=== PATIENT | male | born 1945 | race Caucasian/White ===

== ENCOUNTER 2019-06-18 07:54 | Outpatient (REF) | payer MEDICARE, SELFPAY ==
[2019-06-18 13:29] LABS: Chol HDL Ratio 3.15 mg/dL (1.0-5.00); Cholesterol 145 mg/dL (0-200); Glucose 89 mg/dL (65-115); HDL Cholesterol 46 mg/dL (60-100); LDL Cholesterol Calculated 85 mg/dL (50-129); LDL HDL Ratio 1.85 RATIO (0.00-3.22); Triglycerides 72 mg/dL (0-150)
[2019-06-18 13:39] LABS: Estmated Average Glucose 126
== END 2019-06-18 07:55 | disposition home or self-care (01) ==
LOC: LAB 07:54
PROVIDERS: Family Provider Family Medicine; PCP Family Medicine; Visit Provider Dermatology
DX: Z01.89 Encounter for other specified special examinations (principal)
CPT/HCPCS: 80061; 82947; 83036

== ENCOUNTER 2020-05-26 21:32 | Emergency (ER) | payer MEDICARE, SELFPAY ==
[2020-05-26 21:37] VITALS: BP 126/77; PULSE 73; RESP 18; TEMP 36.5; O2SAT 99; BMI 19.0
--- NOTE | 2020-05-26 21:47 | ED_ITS ---
HPI - Back Pain/Injury General: Chief Complaint: Back Pain/Injury Stated Complaint: LOWER BACK PAIN Time Seen by Provider: 05/26/20 21:46 History of Present Illness: HPI Narrative: Patient is a 74-year-old male comes to the ED with lower back pain. Injury occurred approximately 4 days ago. Says he was lifting the front end of his mower and he bent over and twisted and he felt a pop and then he had pain across his lower back. Patient has past medical history of lower back surgery with titanium rods placed. He rates his lower back pain an 8 out of 10. He is able to walk and stand up but it does cause him some pain. Denies any pain radiating down the legs, numbness or tingling to the legs, bladder or bowel incontinence, pelvic anesthesia. Associated symptoms: Deny abdominal pain, chills, dysuria, fatigue, fever(s), hematuria, nausea or vomiting Review of Systems Const: Denies: fever(s), chills or fatigue Eyes: Denies: change in vision or eye discomfort ENMT: Denies: throat pain, odynophagia, nasal discharge or nasal congestion Card: Denies: chest pain, palpitations, edema, swelling of feet/ankles, dyspnea on exertion or orthopnea Resp: Denies: dyspnea, productive cough or non-productive cough GI: Denies: abdominal pain, nausea, vomiting, diarrhea, constipation or hematochezia : Denies: flank pain, difficulty urinating, dysuria or hematuria Musc: Reports: back pain; Denies: neck pain or extremity swelling Skin/Breast: Denies: rash or new lesions Neuro: Denies: headache(s), numbness in extremities or weakness in extremities Physical Exam Const: COMMON NORMALS: no acute distress, patient oriented x3 and alert GENERAL APPEARANCE: cooperative and comfortable HENMT: COMMON NORMALS: normocephalic HEAD & SCALP: normocephalic MOUTH: Normal oral and palatal mucosa present THROAT: posterior oropharynx normal and uvula midline Neck/C-Spine: COMMON NORMALS: supple GENERAL: Yes normal visual inspection Resp: COMMON NORMALS: normal respiratory effort, No retractions, No use of accessory muscles and clear to auscultation bilaterally AUSCULTATION: clear to auscultation bilaterally Cardio: COMMON NORMALS: regular rate, regular rhythm, S1 normal heart sound present, S2 normal heart sound present, No gallops present (Cardio), No clicks present (Cardio), No murmurs present (Cardio) and Peripheral pulses 2+ throughout RATE: regular rate RHYTHM: regular rhythm HEART SOUNDS: S1 normal heart sound present and S2 normal heart sound present PERIPHERAL PULSES: Peripheral pulses 2+ throughout GI: COMMON NORMALS: Normal to inspection, nondistended, normoactive bowel sounds present, Soft to palpation, non-tender and no masses PALPATION: Yes Soft to palpation : COMMON NORMALS: Yes no CVA tenderness BLADDER/KIDNEY EXAM: Yes no CVA tenderness Back/Pelvis: COMMON NORMALS: no CVA tenderness LUMBAR SPINE/LOWER BACK: Yes pain with ROM, No lumbar spinal tenderness and Yes paraspinal muscle tenderness Extremity: COMMON NORMALS: normal to inspection Neuro: COMMON NORMALS: patient oriented x3 and moves all extremities SENSORIUM/ORIENTATION: Yes alert Skin: GENERAL SKIN EXAM: dry skin Course Vital Signs: Vital signs: Vital Signs Temperature 97.7 F 05/26/20 21:37 Pulse Rate 72 05/27/20 00:14 Respiratory Rate 16 05/27/20 00:14 Blood Pressure 114/74 05/27/20 00:14 Pulse Oximetry 99 05/27/20 00:14 MDM - Back Pain/Injury MDM Narrative: Medical decision making narrative: Patient is a 74-year-old male comes to the ED with acute lower back pain. He has a history of lumbar surgery with titanium rods placed. Patient is able to stand up and ambulate but does experience some pain. Denies any pain radiating down his legs or weakness or numbness to lower extremities. Denies cauda equina symptoms. Lumbar x-ray showed new mild compression fracture of L1. Patient was given a TLSO brace and I placed an order with case management for patient to be referred to neurosurgery. He was sent home with a prescription for Hyden and Robaxin. He was told to rest and wear TLSO brace until seen by neurosurgeon . Return to ED precautions given. Patient was told that he will receive a call from case management to set up an appointment with neurosurgery. Patient understood and agreed with plan. Imaging Data^: Xray Ortho: Attestation: I personally reviewed and interpreted this imaging study as follows: Radiologist's impression: [address] [address] XRay Report Signed Patient: Wang Martinez Unit #: [id number] : 1945 Age/Sex: 74 / M ADM Date: 05/26/20 Loc: ER Room/Bed: Attending Dr: Ordering Provider/Ordering MD: Tee Zuniga Date of Service: 05/26/20 Procedure(s): XR lumbar spine 2-3V* [id number] Accession Number(s): [id number] Report Number: [id number] PROCEDURE INFORMATION: Exam: XR Lumbosacral Spine, 2 or 3 Views Exam date and time: 05/26/2020 10:25 PM Age: 74 years old Clinical indication: Injury or trauma; Blunt trauma (contusions or hematomas); Prior surgery; Patient HX: Low back pain, lifting lawnmower; Additional info: Back injury TECHNIQUE: Imaging protocol: XR of the lumbosacral spine, 2 or 3 views. COMPARISON: CR Lumbar Spine 2-3 views* [id number] 03/30/2019 1:21 PM FINDINGS: Bones/joints: Stable old, mild compression deformity of L3. Stable grade I anterolisthesis of L4 on L5. Stable postsurgical changes consistent with L4-L5 fusion. Stable multilevel degenerative changes of varying severity in the visualized spine. New age-indeterminate mild compression deformity of the superior endplate of L1. Bones are diffusely osteopenic. Mild degenerative changes of the right and left sacroiliac joints. Soft tissues: No paravertebral soft tissue abnormality. No radiopaque foreign body. Vasculature: Atherosclerotic changes in the visualized arteries. XR/XR lumbar spine 2-3V* [id number] IMPRESSION: 1. New age-indeterminate mild compression deformity of the superior endplate of L1. Recommend correlation with symptoms of pain in this area. CT scan of the lumbar spine may be obtained for further evaluation as clinically indicated. 2. Stable old, mild compression deformity of L3. 3. Stable grade I anterolisthesis of L4 on L5. Stable postsurgical changes consistent with L4-L5 fusion. 4. Stable multilevel degenerative changes of varying severity in the visualized spine. 5. Incidental/nonacute findings are listed in the report. Dictated By: Faviola Pennington MD Signed By: Faviola Pennington MD Signed Date/Time: 05/26/202300 DD/ 58 Discharge Plan Discharge Patient Disposition: Home Clinical Impression: Compression fracture of L1 lumbar vertebra Qualifiers: Encounter type: initial encounter Qualified Code(s): S32.010A - Wedge compression fracture of first lumbar vertebra, initial encounter for closed fracture Condition: Stable Prescriptions: New methocarbamol 750 mg tablet 750 mg PO Q8H Qty: 30 RF: 0 Discharge Orders: Discharge ED (Routine); Ordered 05/26/20 Ordered By: Tee Zuniga Referrals: Jean Bedolla MD [Primary Care Provider] - Discharge Diet: Regular Discharge Activity: Limit activity as instructed Patient Instructions: Fractures - Compression Activity Restrictions/Additional Instructions: Follow-up with medical provider as directed. Case management will be contacting you in the next several days set up an appointment with neurosurgery. Take medications as prescribed. Robaxin is a muscle relaxer and can cause some drowsiness so take at night before bed. Limit strenuous activity and no lifting and wear TLSO brace. Return to the ER or your medical provider if condition worsens. Please read and understand discharge instructions. If any questions, please ask. Coding Level of Care Code ED Regulatory Services Consultant for Grant Fwnathan Exam Comprehensive
--- NOTE | 2020-05-26 22:23 | XRR_ITS ---
PROCEDURE INFORMATION: Exam: XR Lumbosacral Spine, 2 or 3 Views Exam date and time: 05/26/2020 10:25 PM Age: 74 years old Clinical indication: Injury or trauma; Blunt trauma (contusions or hematomas); Prior surgery; Patient HX: Low back pain, lifting lawnmower; Additional info: Back injury TECHNIQUE: Imaging protocol: XR of the lumbosacral spine, 2 or 3 views. COMPARISON: CR Lumbar Spine 2-3 views* [id number] 03/30/2019 1:21 PM FINDINGS: Bones/joints: Stable old, mild compression deformity of L3. Stable grade I anterolisthesis of L4 on L5. Stable postsurgical changes consistent with L4-L5 fusion. Stable multilevel degenerative changes of varying severity in the visualized spine. New age-indeterminate mild compression deformity of the superior endplate of L1. Bones are diffusely osteopenic. Mild degenerative changes of the right and left sacroiliac joints. Soft tissues: No paravertebral soft tissue abnormality. No radiopaque foreign body. Vasculature: Atherosclerotic changes in the visualized arteries. XR/XR lumbar spine 2-3V* [id number] IMPRESSION: 1. New age-indeterminate mild compression deformity of the superior endplate of L1. Recommend correlation with symptoms of pain in this area. CT scan of the lumbar spine may be obtained for further evaluation as clinically indicated. 2. Stable old, mild compression deformity of L3. 3. Stable grade I anterolisthesis of L4 on L5. Stable postsurgical changes consistent with L4-L5 fusion. 4. Stable multilevel degenerative changes of varying severity in the visualized spine. 5. Incidental/nonacute findings are listed in the report.
[2020-05-26] MEDS: ketorolac 60 mg/2 mL INJ IM (22:44)
[2020-05-26] MEDS: orphenadrine 30 mg/mL Inj 2 mL 60 MG IM (22:44)
[2020-05-26 23:39] VITALS: RESP 18; O2SAT 97
[2020-05-27] MEDS: HYDROcodone-acetaminophen 7.5-325 mg Tablet 2 TAB PO (00:02)
[2020-05-27 00:14] VITALS: BP 114/74; PULSE 72; RESP 16; O2SAT 99
--- NOTE | 2020-05-29 09:11 | DCPLANNER ---
Addendum entered by Deja Stafford 06/06/20 16:09: Altagracia from ortho called case finishing machine adjuster stating that when clinic called to schedule appointment, that patient was seen somewhere else. Original Note: fixed income portfolio manager had message to schedule a follow up appointment for patient with ortho. fixed income portfolio manager called the ortho clinic, spoke with Altagracia, gave clinic patients information. fixed income portfolio manager was told that patients information would be printed and reviewed. Clinic will call patient with appointment information.
== END 2020-05-27 00:07 | disposition home or self-care (01) ==
PROVIDERS: Emergency Provider Physician Assistant; PCP Family Medicine
DX: S32.010A Wedge compression fracture of first lumbar vertebra, initial encounter for closed fracture (principal); X50.0XXA Overexertion from strenuous movement or load, initial encounter
CPT/HCPCS: 12345; 72100; 96372; 99281; 99283; J1885; J2360; L0456

== ENCOUNTER 2021-08-16 11:50 | Outpatient (CLI) | payer MEDICARE, SELFPAY ==
--- NOTE | 2021-08-16 12:12 | XR_ITS ---
WS: [id number] XR lumbar spine 2-3V* [id number] REASON FOR EXAM: LUMBAR SPINAL STENOSIS FINDINGS: No significant interval change compared to 05/26/2020. Posterior pedicle screws and rods with interbody fusion device at L4-L5. Surgical appliances are in proper position and alignment and unchanged compared to 05/26/2020. Chronic compression deformities of L3 and L1. No new findings. XR/XR lumbar spine 2-3V* [id number] IMPRESSION: Stable lumbar spine as above.
--- NOTE | 2021-08-16 12:12 | XR_ITS ---
WS: [id number] XR hip RT 2-3V wo/w pel* [id number] REASON FOR EXAM: R HIP PAIN FINDINGS: No acute fracture or focal bone lesion. Mild to moderate narrowing of the hip joint space with subchondral sclerosis and cystic change in the acetabulum. No soft tissue abnormality. The hip is unchanged compared to 02/12/2018. XR/XR hip RT 2-3V wo/w pel* [id number] IMPRESSION: Osteoarthritis of the right hip stable compared to 02/12/2018.
== END 2021-08-16 11:51 | disposition home or self-care (01) ==
PROVIDERS: PCP Family Medicine; Visit Provider Family Medicine
DX: M48.061 Spinal stenosis, lumbar region without neurogenic claudication (principal); M16.11 Unilateral primary osteoarthritis, right hip
CPT/HCPCS: 72100; 73502

== ENCOUNTER 2021-09-26 10:06 | Outpatient (CLI) | payer MEDICARE, SELFPAY ==
--- NOTE | 2021-09-26 10:11 | MR_ITS ---
WS: [id number] MRI LUMBAR SPINE NONCONTRAST HISTORY: SPINAL STENOSIS, LUMBAR COMPARISON: None available. TECHNIQUE: Sagittal and axial multisequence imaging is submitted. Increase in the lumbar lordosis. Posterior lumbar fusion at L4-5. L4 anterolisthesis by 5 mm. Mild an terior wedging of L1 and L3. Interbody spacer at L4-5. Mild disc desiccation throughout the lumbar sp ine. Conus terminates normally at L1-2 disc level. L1-L2: Mild bilateral foraminal narrowing. No disc protrusions. No high-grade stenosis. L2-L3: Moderate diffuse annular disc bulging with a LEFT foraminal disc protrusion. Small central dis c protrusion. Moderate ligamentum flavum hypertrophy and facet arthritis. Disc encroaching upon the v entral thecal sac extending into the subarticular recesses. Moderate central and bilateral foraminal stenosis. Disc encroachment upon the traversing L3 nerve roots. L3-L4: Marked annular disc bulging encroaching upon the ventral thecal sac. Suspect disc protrusion i n the RIGHT foramen. Ligamentum flavum and facet arthritis. Mild central with moderate to severe bila teral subarticular recess and foraminal stenosis. Greater foraminal stenosis on the RIGHT. L4-L5: Large posterior laminectomy defect. Mild narrowing of the LEFT foramen. L5-S1: Diffuse annular disc bulging. Osteophytic ridging resulting in mild bilateral foraminal stenos is. Very tiny central disc protrusion. Paraspinal soft tissues are normal. MR/MR lumbar spine wo con* [id number] IMPRESSION: 1. Posterior lumbar fusion at L4-5 with interbody spacer laminectomy defect. 2. Remote mild compression deformities at L1 and L3. 3. Moderate central and bilateral foraminal stenosis at L2-3 with disc encroac hment into the subarticular recesses contacting the L3 nerve roots. 4. Mild central with moderate to severe bilateral subarticular recess and fora flaquito stenosis at L3-4. Severe stenosis involving the RIGHT foramen. Probable d isc protrusion in the RIGHT proximal foramen. 5. Mild bilateral foraminal stenosis at L1-2 and L5-S1.
== END 2021-09-26 10:07 | disposition home or self-care (01) ==
PROVIDERS: PCP Family Medicine; Visit Provider Family Medicine
DX: M48.061 Spinal stenosis, lumbar region without neurogenic claudication (principal)
CPT/HCPCS: 72148

== ENCOUNTER 2021-11-21 07:23 | Outpatient (RCR) | payer MEDICARE, SELFPAY | END 2021-12-09 23:59 | disposition home or self-care (01) | LOC: SPT 07:23 | PROVIDERS: PCP Family Medicine; Referring Provider Neurological Surgery; Visit Provider Neurological Surgery | DX: M54.16 Radiculopathy, lumbar region (principal); M48.061 Spinal stenosis, lumbar region without neurogenic claudication | CPT/HCPCS: 97110; 97162; G0283 ==

== ENCOUNTER 2021-12-10 06:00 | Outpatient (RCR) | payer MEDICARE, SELFPAY | END 2022-01-09 23:59 | disposition home or self-care (01) | LOC: SPT 06:00 | PROVIDERS: PCP Family Medicine; Referring Provider Neurological Surgery; Visit Provider Neurological Surgery | DX: M48.061 Spinal stenosis, lumbar region without neurogenic claudication (principal); M54.16 Radiculopathy, lumbar region; Z87.891 Personal history of nicotine dependence | CPT/HCPCS: 97110; G0283 ==

== ENCOUNTER → 2023-02-11 15:46 | Outpatient (BNVA) | payer MEDICARE, SELFPAY | PROVIDERS: PCP Family Medicine; Visit Provider Emergency Medicine | DX: M17.11 Unilateral primary osteoarthritis, right knee (principal); M25.561 Pain in right knee | CPT/HCPCS: 73562 ==

== ENCOUNTER 2023-02-11 16:18 | Inpatient (IN) | payer MEDICARE, SELFPAY ==
[2023-02-11 16:19] VITALS: BP 147/60; PULSE 73; RESP 17; TEMP 36.6; O2SAT 94; BMI 19.3
--- NOTE | 2023-02-11 16:30 | W.ED.EXTPRO ---
Documented by User: MARIAH Vazquez 02/11/23 22:45 HPI - Extremity Problem General: Chief complaint: Extremity Problem,Nontraumatic Stated complaint: knee pain Time Seen by Provider: 02/11/23 16:23 Source: patient Mode of arrival: wheelchair Limitations: no limitations History of Present Illness: Patient is a nice 77-year-old male who presents to ED today for complaint of right knee pain and swelling. Patient was seen at a walk in clinic earlier today and referred to the emergency department for concern for septic arthritis. Patient states he began noticing pain in the joint about 3 days ago. Yesterday he started noticing the knee swelling as well as some overlying redness and warmth. He denies any known injury or trauma to the knee. Patient states pain has gotten so severe that he now was not able to bear any weight on the extremity. He is not running fevers. He states he has had a decreased appetite. No recent illness. MD Complaint: joint swelling and joint pain Onset (ago): day(s) Pain Consistency: constant Location: right and knee Severity scale (1-10): 10 Quality: constant Radiation: none Relieving factors: nothing Exacerbating factors: range of motion, weight bearing, walking and palpation Associated symptoms: Reports other (decreased appetite ); Deny chest pain or fever(s) Review of Systems Const: Reports: change in appetite; Denies: fever(s), chills, body aches, fatigue or malaise Card: Denies: chest pain Resp: Denies: dyspnea GI: Denies: abdominal pain Musc: Reports: joint pain, joint swelling, joint warmth and limited range of motion; Denies: neck pain or back pain Skin/Breast: Denies: pruritus Neuro: Reports: difficulty walking (secondary to R knee pain); Denies: headache(s), numbness in extremities, weakness in extremities or sensory changes PFS ED PFSH: Medical History History of back pain Smoker Surgical History (Updated 02/11/23 @ 22:36 by Imtiaz Torres MD) History of back surgery Family History (Updated 02/11/23 @ 22:36 by Imtiaz Torres MD) Mother CAD (coronary artery disease) Social History (Updated 02/11/23 @ 22:36 by Imtiaz Torres MD) Smoking and tobacco status: current every day smoker Alcohol intake: never Substance/Drug Use: never Physical Exam Const: COMMON NORMALS: no acute distress, average body habitus, patient oriented x3, no limitations, healthy appearing, alert and well nourished Resp: COMMON NORMALS: normal respiratory effort and clear to auscultation bilaterally AUSCULTATION: clear to auscultation bilaterally Cardio: COMMON NORMALS: regular rate and regular rhythm RATE: regular rate RHYTHM: regular rhythm Extremity: COMMON NORMALS: capillary refill normal and no calf tenderness GENERAL: Yes normal exam except as noted RIGHT LOWER EXTREMITY: Yes knee joint Right knee: Yes inspection (swollen knee joint), Yes palpation (warmth/swelling appreciated ), Yes ROM (knee held in slight flexion; virtually no ROM secondary to pain) and Yes neurovascular exam (normal) Neuro: COMMON NORMALS: patient oriented x3, moves all extremities, no focal motor deficits and no sensory deficits noted SENSORIUM/ORIENTATION: Yes alert Skin: TRAUMA: no lacerations or abrasions Procedures Joint Aspiration/Injection Joint Asp./Inject. 1: Time Out Performed: Yes Side of body: right Joint Aspirated: knee Ultrasound Guidance: No Skin Prep: Povidone-Iodine1% Local Anesthetic: lidocaine 2% Amount of anesthesia used (mL): 8.0 Needle Size Used: 18G Fluid Obtained: bloody Total fluid obtained (mL): 10 Patient Tolerated Procedure: well Complications: none Additional Comments: performed along with Dr. Corrigan Course Consultations: Consultation #1: Dr. Zuniga-recommends IV abx, admit to hospitalist, and plan for OR tomorrow for wash out Consultation #2: Dr. Torres-accepts admission Vital Signs: Vital signs: Vital Signs Temperature 97.8 F 02/11/23 16:19 Pulse Rate 68 02/11/23 19:30 Respiratory Rate 18 02/11/23 21:35 Blood Pressure 128/59 02/11/23 19:30 Pulse Oximetry 93 02/11/23 21:35 Oxygen Delivery Me thod Room Air 02/11/23 17:09 MDM - Extremity (Nontraumatic) Lab Data 02/11/23 17:00 02/11/23 17:00 Laboratory Results WBC 12.46 10^3/uL (3.29-11.43) H 02/11/23 17:00 RBC 4.92 10^6/uL (3.85-5.65) 02/11/23 17:00 Hgb 15.40 g/dL (11.27-16.99) 02/11/23 17:00 Hct 46.7 % (37-53) 02/11/23 17:00 MCV 94.9 fl (82-101) 02/11/23 17:00 MCH 31.3 pg (27-33) 02/11/23 17:00 MCHC 33.0 g/dL (30-55) 02/11/23 17:00 RDW 13.4 % (12.1-15.1) 02/11/23 17:00 Plt Count 241 10^3/cmm (157-399) 02/11/23 17:00 MPV 10.5 fL (7.4-10.4) H 02/11/23 17:00 Neut % (Auto) 76.7 % 02/11/23 17:00 Lymph % (Auto) 11.2 % 02/11/23 17:00 [facility] % (Auto) 11.6 % 02/11/23 17:00 Eos % (Auto) 0.0 % 02/11/23 17:00 Baso % (Auto) 0.2 % 02/11/23 17:00 Neut # (Auto) 9.55 10^3/uL (1.8-7.7) H 02/11/23 17:00 Lymph # (Auto) 1.4 10^3/uL (0.8-4.8) 02/11/23 17:00 [facility] # (Auto) 1.5 10^3/uL (0.2-0.9) H 02/11/23 17:00 Eos # (Auto) 0.0 10^3/uL (0.0-0.8) 02/11/23 17:00 Baso # (Auto) 0.0 10^3/uL (0.0-0.1) 02/11/23 17:00 Nucleated RBC % (auto) 0 % 02/11/23 17:00 Nucleated RBCs # 0.0 /100WBC 02/11/23 17:00 ESR 11 mm/hr (0-10) H 02/11/23 17:00 Sodium 136 mmol/L (136-145) 02/11/23 17:00 Potassium 4.1 mmol/L (3.5-5.1) 02/11/23 17:00 Chloride 99 mmol/L (98-107) 02/11/23 17:00 Carbon Dioxide 27 mmol/L (22-29) 02/11/23 17:00 Anion Gap 14.1 (5-19) 02/11/23 17:00 BUN 17 mg/dL (8-23) 02/11/23 17:00 Creatinine 0.7 mg/dL (0.7-1.2) 02/11/23 17:00 GFR Calculation Not Reportable 02/11/23 17:00 Glucose 121 mg/dL (65-115) H 02/11/23 17:00 Calculated Osmolality 285 mOsm/kg (285-295) 02/11/23 17:00 Lactic Acid 1.7 mmol/L (0.5-2.2) 02/11/23 17:00 Calcium 9.1 mg/dL (8.5-10.5) 02/11/23 17:00 Total Bilirubin 1.0 mg/dL (0.15-1.2) 02/11/23 17:00 AST 13 U/L (0-40) 02/11/23 17:00 ALT 9 U/L (0-41) 02/11/23 17:00 Alkaline Phosphatase 70 U/L (40-130) 02/11/23 17:00 C-Reactive Protein 147.2 mg/L (0.0-4.9) H 02/11/23 17:00 Total Protein 7.3 g/dL (6.6-8.7) 02/11/23 17:00 Albumin 4.3 g/dL (3.5-5.2) 02/11/23 17:00 Globulin 3.0 g/dL (1.3-4.6) 02/11/23 17:00 Fluid Crystals Sent to pathology 02/11/23: Synovial Color Red (PALE YELLOW) 02/11/23: Synovial Appearance Cloudy (CLEAR) 02/11/23: Synovial WBC 53997 /uL (0-150) H 02/11/23: Synovial RBC 102 10^3/uL (0-0) H 02/11/23: Synovial Mononuclear 4.957 10^3/uL 10/03/23 19:23 Synov Polynuclear WBCs 87.595 10^3/uL 02/11/23 19:23 Synovial Other Cells Not Reportable 02/11/23 19:23 Synovial Polynuclear % 94.700 % 02/11/23 19:23 Synovial Mononuclear % 5.300 % 02/11/23 19:23 Path Cons w/Slide Yes 02/11/23 19:23 Discharge Plan Discharge Patient Disposition: Admitted As Inpatient Admit Provider: Imtiaz Torres Clinical Impression: Septic arthritis of knee, right Condition: Stable Coding Level of Care Code ED Steward/Stewardess Deck for Chg Fwd Documented by User: Juan Antonio Corrigan MD 02/11/23 22:03 HPI - Extremity Problem General: Chief complaint: Extremity Problem,Nontraumatic Stated complaint: knee pain Time Seen by Provider: 02/11/23 16:23 PFSH ED PFSH: Medical History History of back pain Smoker Surgical History (Updated 02/11/23 @ 22:36 by Imtiaz Torres MD) History of back surgery Family History (Updated 02/11/23 @ 22:36 by Imtiaz Torres MD) Mother CAD (coronary artery disease) Social History (Updated 02/11/23 @ 22:36 by Imtiaz Torres MD) Smoking and tobacco status: current every day smoker Alcohol intake: never Substance/Drug Use: never Course Vital Signs: Vital signs: Vital Signs Temperature 97.8 F 02/11/23 16:19 Pulse Rate 68 02/11/23 19:30 Respiratory Rate 18 02/11/23 21:35 Blood Pressure 128/59 02/11/23 19:30 Pulse Oximetry 93 02/11/23 21:35 Oxygen Delivery Me thod Room Air 02/11/23 17:09 MDM - Extremity (Nontraumatic) Medical Decision Making Saw patient with above midlevel assisted with patient's arthrocentesis did have elevated WBCs on the synovial fluid analysis likely septic joint spoke to orthopedist will admit on IV antibiotics and likely go to the OR tomorrow Lab Data 02/11/23 17:00 02/11/23 17:00 Laboratory Results WBC 12.46 10^3/uL (3.29-11.43) H 02/11/23 17:00 RBC 4.92 10^6/uL (3.85-5.65) 02/11/23 17:00 Hgb 15.40 g/dL (11.27-16.99) 02/11/23 17:00 Hct 46.7 % (37-53) 02/11/23 17:00 MCV 94.9 fl (82-101) 02/11/23 17:00 MCH 31.3 pg (27-33) 02/11/23 17:00 MCHC 33.0 g/dL (30-55) 02/11/23 17:00 RDW 13.4 % (12.1-15.1) 02/11/23 17:00 Plt Count 241 10^3/cmm (157-399) 02/11/23 17:00 MPV 10.5 fL (7.4-10.4) H 02/11/23 17:00 Neut % (Auto) 76.7 % 02/11/23 17:00 Lymph % (Auto) 11.2 % 02/11/23 17:00 [facility] % (Auto) 11.6 % 02/11/23 17:00 Eos % (Auto) 0.0 % 02/11/23 17:00 Baso % (Auto) 0.2 % 02/11/23 17:00 Neut # (Auto) 9.55 10^3/uL (1.8-7.7) H 02/11/23 17:00 Lymph # (Auto) 1.4 10^3/uL (0.8-4.8) 02/11/23 17:00 [facility] # (Auto) 1.5 10^3/uL (0.2-0.9) H 02/11/23 17:00 Eos # (Auto) 0.0 10^3/uL (0.0-0.8) 02/11/23 17:00 Baso # (Auto) 0.0 10^3/uL (0.0-0.1) 02/11/23 17:00 Nucleated RBC % (auto) 0 % 02/11/23 17:00 Nucleated RBCs # 0.0 /100WBC 02/11/23 17:00 ESR 11 mm/hr (0-10) H 02/11/23 17:00 Sodium 136 mmol/L (136-145) 02/11/23 17:00 Potassium 4.1 mmol/L (3.5-5.1) 02/11/23 17:00 Chloride 99 mmol/L (98-107) 02/11/23 17:00 Carbon Dioxide 27 mmol/L (22-29) 02/11/23 17:00 Anion Gap 14.1 (5-19) 02/11/23 17:00 BUN 17 mg/dL (8-23) 02/11/23 17:00 Creatinine 0.7 mg/dL (0.7-1.2) 02/11/23 17:00 GFR Calculation Not Reportable 02/11/23 17:00 Glucose 121 mg/dL (65-115) H 02/11/23 17:00 Calculated Osmolality 285 mOsm/kg (285-295) 02/11/23 17:00 Lactic Acid 1.7 mmol/L (0.5-2.2) 02/11/23 17:00 Calcium 9.1 mg/dL (8.5-10.5) 02/11/23 17:00 Total Bilirubin 1.0 mg/dL (0.15-1.2) 02/11/23 17:00 AST 13 U/L (0-40) 02/11/23 17:00 ALT 9 U/L (0-41) 02/11/23 17:00 Alkaline Phosphatase 70 U/L (40-130) 02/11/23 17:00 C-Reactive Protein 147.2 mg/L (0.0-4.9) H 02/11/23 17:00 Total Protein 7.3 g/dL (6.6-8.7) 02/11/23 17:00 Albumin 4.3 g/dL (3.5-5.2) 02/11/23 17:00 Globulin 3.0 g/dL (1.3-4.6) 02/11/23 17:00 Fluid Crystals Sent to pathology 02/11/23: Synovial Color Red (PALE YELLOW) 02/11/23: Synovial Appearance Cloudy (CLEAR) 10/03/23 19:23 Synovial WBC 53956 /uL (0-150) H 02/11/23 19:23 Synovial RBC 102 10^3/uL (0-0) H 02/11/23 19:23 Synovial Mononuclear 4.957 10^3/uL 02/11/23 19:23 Synov Polynuclear WBCs 87.595 10^3/uL 02/11/23 19:23 Synovial Other Cells Not Reportable 02/11/23 19:23 Synovial Polynuclear % 94.700 % 02/11/23 19:23 Synovial Mononuclear % 5.300 % 02/11/23 19:23 Path Cons w/Slide Yes 02/11/23 19:23 XR interpretation done by ED provider, pending radiology final review Discharge Plan Discharge Patient Disposition: Admitted As Inpatient Admit Provider: Imtiaz Torres Clinical Impression: Septic arthritis of knee, right Condition: Stable Coding Level of Care Code ED Steward/Stewardess Deck for Grant Guzman
[2023-02-11 16:36] VITALS: PULSE 60; O2SAT 97
[2023-02-11 17:09] VITALS: BP 146/64; PULSE 67; RESP 18; O2SAT 98
[2023-02-11 17:38] LABS: Basophils % 0.2 %; Hematocrit 46.7 % (37-53); Lymphocytes # 1.4 10^3/uL (0.8-4.8); Lymphocytes % 11.2 %; Mean Corpuscular Hemoglobin 31.3 pg (27-33); Mean Corpuscular Volume 94.9 fl (82-101); Mean Platelet Volume 10.5 fL (7.4-10.4); Monocytes # 1.5 10^3/uL (0.2-0.9); Monocytes % 11.6 %; Neutrophils # 9.55 10^3/uL (1.8-7.7); Neutrophils % 76.7 %; Nucleated Red Blood Cells % 0 %; Platelet Count 241 10^3/cmm (157-399); Red Blood Count 4.92 10^6/uL (3.85-5.65); Red Cell Distribution Width 13.4 % (12.1-15.1); White Blood Count 12.46 10^3/uL (3.29-11.43)
[2023-02-11 17:41] LABS: Erythrocyte Sedimentation Rate 11 mm/hr (0-10)
[2023-02-11 17:42] LABS: Alanine Aminotransferase 9 U/L (0-41); Albumin Level 4.3 g/dL (3.5-5.2); Alkaline Phosphatase 70 U/L (40-130); Anion Gap 14.1 (5-19); Aspartate Amino Transferase 13 U/L (0-40); Blood Urea Nitrogen 17 mg/dL (8-23); C Reactive Protein 147.2 mg/L (0.0-4.9); Calcium 9.1 mg/dL (8.5-10.5); Carbon Dioxide 27 mmol/L (22-29); Chloride 99 mmol/L (98-107); Glucose 121 mg/dL (65-115); Osmolality Calculated 285 mOsm/kg (285-295); Potassium 4.1 mmol/L (3.5-5.1); Sodium 136 mmol/L (136-145); Total Protein 7.3 g/dL (6.6-8.7)
[2023-02-11 17:43] LABS: Lactic Sepsis W/Reflex 1.7 mmol/L (0.5-2.2)
[2023-02-11] MEDS: lidocaine 2% INJ 20 mL INJECTION (19:28)
[2023-02-11 19:30] VITALS: BP 128/59; PULSE 68; RESP 16; O2SAT 93
[2023-02-11 20:48] LABS: RBC Synovial Fluid 102 10^3/uL (0-0); Synovial Fluid Mononuclear # 4.957 10^3/uL
[2023-02-11 20:49] LABS: Appearance Synovial Fluid CLOUDY (CLEAR); Color Synovial Fluid RED (PALE YELLOW); PATH Referal YES
[2023-02-11 20:53] LABS: Cyto Order Verification No Order
[2023-02-11] MEDS: ondansetron 2 mg/ML SDV 2 mL 4 MG IVP (21:31)
--- NOTE | 2023-02-11 21:32 | PM.CONSULT ---
Providers/Reason For Consult Consulting Physician/Specialty*: Abhi Zuniga DO/orthopedic surgery Reason for Consult*: Right knee septic arthritis Requesting Physician: Nolvia Avina PA-C (Juan Antonio Corrigan) Primary Care Provider: Jean Bedolla MD History of Present Illness History of Present Illness Wang Martinez is a 77 year old male presents with complaints of right knee pain and swelling this has been going on for the past 3 days and has progressively worsened has been unable to bear weight he has noticed swelling in his knee as well as warmth to his knee states he has had potentially some chills last night but otherwise denies any other systemic type symptoms he denies any recent illness. Denies any recent dental infections or recent dental work performed. Denies any other type history of inoculation for infection. He denies any history of gout or pseudogout. Denies having much in the way of right knee pain prior to 3 days ago. Patient was seen and worked up by the emergency department his joint was aspirated and patient was found to have 92,000 WBCs. White count 12.4 ESR 11 CRP 147. Patient will be admitted by hospitalist will be started on empiric antibiotics as he has had joint aspiration and been sent for aerobic and anaerobic cultures already. Plan will be for n.p.o. at midnight and plan for surgical intervention of a right knee irrigation debridement with arthroscopy. Patient and understand agree with current plan. All questions answered. Review of Systems General: Reports: 10 or more systems reviewed and unremarkable except in HPI and below Medications/Allergies Home Medications Medication Instructions Recorded Confirmed Last Taken Type methocarbamol 750 mg tablet 750 mg PO Q8H #30 tabs 05/26/20 02/11/23 Unknown Rx gabapentin 300 mg capsule See Rx Instructions .Route 05/17/22 02/11/23 Unknown Rx .COMPLEX #60 caps albuterol sulfate 90 mcg/actuation See Rx Instructions .Route 07/27/22 02/11/23 Unknown Rx aerosol inhaler .COMPLEX #18 grams fluticasone 500 mcg-salmeterol 50 See Rx Instructions .Route 08/09/22 02/11/23 Unknown Rx mcg/dose blistr powdr for .COMPLEX #60 ea inhalation pantoprazole 40 mg tablet,delayed See Rx Instructions .Route 09/16/22 02/11/23 Unknown Rx release .COMPLEX #30 tabs tramadol 50 mg tablet 50 mg PO Q6H PRN pain #120 tabs 09/16/22 02/11/23 Unknown Rx Allergies Allergy/AdvReac Type Severity Reaction Status Date / Time No Known Allergies Allergy Verified 02/11/23 15:35 Vitals/I&O/Wt Last Vital Signs Temp 97.8 F 02/11/23 16:19 Pulse 68 02/11/23 19:30 Resp 16 02/11/23 19:30 BP 128/59 02/11/23 19:30 Pulse Ox 93 02/11/23 19:30 O2 Del Method Room Air 02/11/23 17:09 Weight last 48 hrs Weight 127 lb Physical Exam Narrative: Examination right knee: Examination of the right knee palpable large joint effusion. Patient has Band-Aid on from previous aspiration. Patient has significantly decreased range of motion stable to varus valgus stress. Limited examination secondary to patient's guarding and pain. He is able to tolerate gentle micro motion but still has noticeable pain and discomfort with this out side at his baseline and comparative to the contralateral knee. Patient's gross motor and sensory is intact of the right lower extremity is able to plantarflex and dorsiflex ankle and wiggle toes. Sensations intact light touch distally compartments are soft compressible. Secondary survey examination demonstrates no swelling or painful joints to the bilateral upper extremities or left lower extremity joints. Normal range of motion of these joints. Const: COMMON NORMALS: no acute distress (Resting comfortably patient does not appear to be ill.) and average body habitus HENMT: COMMON NORMALS: normocephalic and atraumatic HEAD & SCALP: normocephalic and atraumatic Resp: COMMON NORMALS: normal respiratory effort and No retractions Data 02/11/23 17:00 02/11/23 17:00 Other Labs: WBC 12.4 ESR 11 CRP 147 Joint aspiration demonstrates 92,000 WBCs with 94.7% PMNs Micro: Microbiology 02/11/23 17:10 Blood Culture - Preliminary Blood SPECIMEN COLLECTED 02/11/23 17:00 Blood Culture - Preliminary Blood SPECIMEN COLLECTED Xray Ortho: My impression: X-rays of the right knee reviewed in person interpreted by myself demonstrated significant right knee degenerative joint disease with [id number] articulation of the medial compartment chondrocalcinosis noted throughout the right knee as well as arthritic changes noted on the lateral and patellofemoral compartments. A&P Assessment and plan (1) Septic arthritis of knee, right: Plan N.p.o. at midnight Plan for OR tomorrow for right knee irrigation debridement with arthroscopy Joints been aspirated by the emergency department 92,000 WBC count consistent with likely septic arthritis we will continue to follow aerobic and anaerobic cultures from this aspiration, given patient's already had aspirate and cultures sent we will recommend starting of empiric antibiotics Internal medicine to admit as primary Orthopedics consulted Imaging reviewed Labs reviewed Nonweightbearing right lower extremity Plan for OR tomorrow MDM: Patient is a 77-year-old gentleman who presents with concern for right septic knee arthritis. Patient's had pain for 3 days with swelling and aspiration the emergency department findings concerning for possible septic arthritis given 92 WBC count and CRP of 147 elevated white count of 12.4. He has been having issues with this for 3 days and is worsened over the past day or 2. At this point time given his joints been aspirated and sent for cultures we will get him started on empiric antibiotics per the primary team. Patient be n.p.o. at midnight and plan for right knee irrigation and debridement with arthroscopy tomorrow. Patient and understand the risk benefits complication alternatives with surgery they understand risk of surgery include not limited to make a better make it worse injury to nerves vessels or tendons, persistent infection possible repeat surgery. Understanding risk of surgery they like to proceed with surgical intervention we will get added onto surgery schedule tomorrow. All questions answered. Coding Level of Care Code Acute Code for [facility] Diagnoses Septic arthritis of knee, right M00.9 Time Spent (min) 45
[2023-02-11 21:35] VITALS: RESP 18; O2SAT 93
[2023-02-11] MEDS: morphine 4 mg/mL SDV 1 mL IVP (21:35)
[2023-02-11] MEDS: piperacillin-tazobactam 3.375 GM in sodium chloride 0.9% (plus) 50 ML IV (21:43)
--- NOTE | 2023-02-11 22:34 | P.HP_ITS ---
Providers/Chief Complaint Admitting Physician: Imtiaz Torres MD Primary Care Provider: Jean Bedolla MD Chief Complaint: knee pain History of Present Illness Wang Martinez is a 77 year old male with a past medical history of GI bleed, gastric ulcer requiring surgery, history of back pain, status post titanium johny placement, who presents to [facility] due to right knee pain, swelling, erythema, tenderness, warmth. Patient denies fever, no chills, no reported trauma, no reported breaks in the skin, no iv drug use, no cat or dog bites, he does report twisiting his knee and ankle a few days ago, no alcohol use, no diabetes Review of Systems Const: Denies: fever(s) or chills Card: Denies: chest pain Resp: Denies: dyspnea GI: Denies: abdominal pain Musc: Reports: joint pain, joint swelling, joint redness and joint warmth Medications/Allergies Home Medications Medication Instructions Recorded Confirmed Last Taken Type methocarbamol 750 mg tablet 750 mg PO Q8H #30 tabs 05/26/20 02/11/23 Unknown Rx gabapentin 300 mg capsule See Rx Instructions .Route 05/17/22 02/11/23 Unknown Rx .COMPLEX #60 caps albuterol sulfate 90 mcg/actuation See Rx Instructions .Route 07/27/22 02/11/23 Unknown Rx aerosol inhaler .COMPLEX #18 grams fluticasone 500 mcg-salmeterol 50 See Rx Instructions .Route 08/09/22 02/11/23 Unknown Rx mcg/dose blistr powdr for .COMPLEX #60 ea inhalation pantoprazole 40 mg tablet,delayed See Rx Instructions .Route 09/16/22 02/11/23 Unknown Rx release .COMPLEX #30 tabs tramadol 50 mg tablet 50 mg PO Q6H PRN pain #120 tabs 09/16/22 02/11/23 Unknown Rx Allergies Allergy/AdvReac Type Severity Reaction Status Date / Time No Known Allergies Allergy Verified 02/11/23 15:35 PFSH Acute PFSH: Medical History History of back pain Smoker Surgical History (Updated 02/11/23 @ 22:36 by Imtiaz Torres MD) History of back surgery Family History (Updated 02/11/23 @ 22:36 by Imtiaz Torres MD) Mother CAD (coronary artery disease) Social History (Updated 02/11/23 @ 22:36 by Imtiaz Torres MD) Smoking and tobacco status: current every day smoker Alcohol intake: never Substance/Drug Use: never Vitals/I&O/Wt Last Vital Signs Temp 97.8 F 02/11/23 16:19 Pulse 68 02/11/23 19:30 Resp 18 02/11/23 21:35 BP 128/59 02/11/23 19:30 Pulse Ox 93 02/11/23 21:35 O2 Del Method Room Air 02/11/23 17:09 Weight last 48 hrs Weight 57.606 kg Physical Exam Const: COMMON NORMALS: no acute distress and patient oriented x3 HENMT: COMMON NORMALS: normocephalic HEAD & SCALP: normocephalic Eye: COMMON NORMALS: Equal, round and reactive pupils present and EOMs intact bilaterally Neck/C-Spine: COMMON NORMALS: no JVD Lymph: LYMPHATIC: no lymphadenopathy noted Resp: COMMON NORMALS: normal respiratory effort, No retractions, No use of accessory muscles and clear to auscultation bilaterally AUSCULTATION: clear to auscultation bilaterally Cardio: COMMON NORMALS: regular rate, regular rhythm, S1 normal heart sound present and S2 normal heart sound present RATE: regular rate RHYTHM: regular rhythm HEART SOUNDS: S1 normal heart sound present and S2 normal heart sound present GI: COMMON NORMALS: Normal to inspection, nondistended, normoactive bowel sounds present, Soft to palpation and non-tender Extremity: COMMON NORMALS: no pedal edema OTHER: Right knee, erythematous, swollen, hot, tender, pain with range of motion Bilateral DP PT pulses palpable Neuro: COMMON NORMALS: patient oriented x3, CN's II-XII intact bilaterally and moves all extremities Psych: COMMON NORMALS: mental status grossly normal Data 02/11/23 17:00 02/11/23 17:00 Micro: Microbiology 02/11/23 17:10 Blood Culture - Preliminary Blood SPECIMEN COLLECTED 02/11/23 17:00 Blood Culture - Preliminary Blood SPECIMEN COLLECTED A&P Assessment and plan (1) Septic arthritis of knee, right: - WBC 12.46, ESR 11 CRP 147.2 -Obtain uric acid level -Synovial fluid analysis shows WBCs over 90,000, 94.7%, Gram stain and culture pending -We will ask lab if we can add on crystal analysis -Continue vancomycin, Zosyn -Dr. Zuniga has been consulted, n.p.o. midnight, for surgical intervention tomorrow morning -Morphine for pain control -Zofran for nausea -DVT prophylaxis, SCDs, will start Lovenox after surgery, patient does have a history of gastric ulcer and GI bleed, will have to monitor closely on DVT prophylaxis -blood cultures -synovial cultures -will await surgical culture Attestations Medical Necessity Statement*: patient requires hospitalization for septic arthritis, right knee, inpatient, greater than 2 midnights Diagnoses Septic arthritis of knee, right M00.9
[2023-02-11 22:35] VITALS: BP 108/61; PULSE 68; RESP 17; TEMP 37.2; O2SAT 93
[2023-02-11 22:41] LABS: Crystals, Fluid SENT TO PATHOLOGY
[2023-02-11] MEDS: vancomycin 1,000 MG in sodium chloride 0.9% 250 ML 250 MG IV (23:13)
[2023-02-11] MEDS: sodium chloride 0.9% 1,000 ML 75 ML IV (23:13)
[2023-02-11] MEDS: pantoprazole 40 mg SDV IVP (23:14)
[2023-02-11] MEDS: gabapentin 300 mg Capsule PO (23:14)
[2023-02-11] MEDS: acetaminophen 325 mg Tablet 650 MG PO (23:30)
[2023-02-11 23:42] LABS: Uric Acid Body Fluid 4 mg/dL
[2023-02-12] VITALS (18 sets, daily range): BP systolic 93–147; BP diastolic 44–66; PULSE 55–75; RESP 15–18; TEMP 36.5–36.9; O2SAT 90–100; BMI 19.3
[2023-02-12] MEDS: piperacillin-tazobactam 3.375 GM in sodium chloride 0.9% (plus) 50 ML IV ×2 (03:20→17:54)
[2023-02-12 04:57] LABS: Basophils % 0.3 %; Eosinophils % 0.1 %; Hematocrit 38.4 % (37-53); Lymphocytes # 1.4 10^3/uL (0.8-4.8); Lymphocytes % 15.5 %; Mean Corpuscular HGB Conc 32.3 g/dL (30-55); Mean Corpuscular Hemoglobin 30.2 pg (27-33); Mean Corpuscular Volume 93.4 fl (82-101); Mean Platelet Volume 10.2 fL (7.4-10.4); Monocytes # 1.4 10^3/uL (0.2-0.9); Monocytes % 15.4 %; Neutrophils # 6.11 10^3/uL (1.8-7.7); Neutrophils % 68.4 %; Nucleated Red Blood Cells % 0 %; Platelet Count 204 10^3/cmm (157-399); Red Blood Count 4.11 10^6/uL (3.85-5.65); Red Cell Distribution Width 13.4 % (12.1-15.1); White Blood Count 8.95 10^3/uL (3.29-11.43)
[2023-02-12 05:12] LABS: Estmated Average Glucose 114; Hemoglobin A1C 5.6 % (4.0-6.0)
[2023-02-12 05:29] LABS: Blood Urea Nitrogen 17 mg/dL (8-23); Calcium 8.1 mg/dL (8.5-10.5); Carbon Dioxide 24 mmol/L (22-29); Chloride 103 mmol/L (98-107); Glucose 111 mg/dL (65-115); Osmolality Calculated 282 mOsm/kg (285-295); Sodium 135 mmol/L (136-145); Thyroid Stimulating Hormone 0.89 uIU/mL (0.27-4.20)
[2023-02-12 05:30] LABS: Anion Gap 12.2 (5-19); Potassium 4.2 mmol/L (3.5-5.1)
[2023-02-12 05:36] LABS: Chol HDL Ratio 2.33 mg/dL (1.0-5.00); Cholesterol 107 mg/dL (0-200); HDL Cholesterol 46 mg/dL (60-100); LDL Cholesterol Calculated 47 mg/dL (50-129); LDL HDL Ratio 1.02 RATIO (0.00-3.22); NT Pro B Type Natriuretic Pept 882 pg/mL (0-450); Triglycerides 71 mg/dL (0-150)
[2023-02-12] MEDS: acetaminophen 325 mg Tablet 650 MG PO (08:28)
[2023-02-12] MEDS: gabapentin 300 mg Capsule PO (08:28)
--- NOTE | 2023-02-12 09:55 | PC.CHAP ---
Pastoral Care Encounter/Spiritual Assessment Type of Contact [] Declined race relations professor visit [] Patient/Family/Request visit [] Outpatient visit [] Follow-up visit [] Physician referral [] Code/Alert [x] Routine visit [] Staff referral [] Actively dying [] Patient sleeping [] Family support [] [] Out of room [] Palliative care [] [] Receiving care in room [] Pre-surgical visit [] Trauma [] Long length of stay [] ICU visit [] Other: Relational/Emotional Strength [] Patient feels connected with others/family/visitors/staff [] Distress [] Loneliness/isolation [] Abandonment Spirituality of Patient [] Person of Nelida [] Attends [employer]itan of their Nelida [] Believes in Prayer [] Reads Bible or Orthodox materials [x] There are Spiritual issues to be addressed Collection Technician Interventions [x] Prayer [] Active listening [] Non-anxious presence [] Spiritual/emotional support [] Crisis/trauma care [] Spiritual counseling [] Bereavement support [] Provided bereavement packet [] Provided Bible/devotional materials [] Provided toy/stuffed animal, coloring book to patient or family member [] Provided Communion [] Anointing/[place] [] Salvation [] Completed spiritual assessment [] Other: Impact on Illness or Injury [] Angry [] Fearful [] Anxious [] Often cries [] Exhaustion [] Unable to work [] Unable to attend rastafari [] Unable to walk/stand [] Unable to read [] Unable to drive [] Unable to eat/drink [] Unable to sleep [] Unable to be with family [] Patient intubated [] Other: Summary patient doesnt belive in prayer Time spent with patient 10 min
[2023-02-12 11:03] LABS: Iron 15 ug/dL (59-158); Total Iron Binding Capacity 250 mcg/dl; Unsaturated Iron Binding 235 ug/dL (112-347)
[2023-02-12 11:19] LABS: Procalcitonin 0.22 ng/mL (0-0.5); Vitamin B12 178 pg/mL (232-1245)
[2023-02-12] MEDS: sodium chloride 0.9% 1,000 ML 30 ML IV (13:28)
--- NOTE | 2023-02-12 14:17 | ANES.PREANE2 ---
Pre-Anesthetic Assessment Height/Weight: Height 1.73 m Weight 57.606 kg Temp Pulse Resp BP Pulse Ox O2 Del Method 98.0 F 70 15 104/64 93 Room Air 02/12/23 11:48 02/12/23 11:48 02/12/23 11:48 02/12/23 11:48 02/12/23 11:48 02/12/23 11:48 Preop Diagnosis: Right knee septic arthritis Operation Date: 02/12/23 14:30 Proposed Procedures p Debridement Lower Extremity And Irrigation(Right) - Abhi Zuniga DO s Knee Arthroscopy(Right) - Abhi Zuniga DO Familial anesthetic complications: None Was Beta Joon taken within 24 hours: N/A Was Clonidine taken within 24 hours: N/A Last intake: Intake Last Liquid Date 02/11/23 Last Liquid Time 22:00 Last Solid Date 02/11/23 Last Solid Time 22:00 Social Tobacco and No alcohol Exam alert, oriented x 3, clear to auscultation bilaterally and regular rate & rhythm Airway Mallampati: Class I Dentition: full Pulmonary Chronic Obstructive Pulmonary Disease Anesthetic Plan ASA status: 3 Anesthesia: General Risk of > 500 ml blood loss (7ml/kg in children): No Medications/Allergies Home Medications Medication Instructions Recorded Confirmed Last Taken Type gabapentin 300 mg capsule See Rx Instructions .Route 05/17/22 02/12/23 Unknown Rx .COMPLEX #60 caps albuterol sulfate 90 mcg/actuation See Rx Instructions .Route 07/27/22 02/12/23 Unknown Rx aerosol inhaler .COMPLEX #18 grams fluticasone 500 mcg-salmeterol 50 See Rx Instructions .Route 08/09/22 02/12/23 Unknown Rx mcg/dose blistr powdr for .COMPLEX #60 ea inhalation pantoprazole 40 mg tablet,delayed See Rx Instructions .Route 09/16/22 02/12/23 Unknown Rx release .COMPLEX #30 tabs tramadol 50 mg tablet 50 mg PO Q6H PRN pain #120 tabs 09/16/22 02/12/23 Unknown Rx acetaminophen 325 mg tablet 650 mg PO QAM 02/12/23 02/12/23 Unknown History Allergies Allergy/AdvReac Type Severity Reaction Status Date / Time No Known Allergies Allergy Verified 02/11/23 15:35 Current Medications Generic Name Dose Route Start Last Admin Trade Name Freq PRN Reason Stop Dose Admin Acetaminophen 650 mg 02/11/23 22:35 02/12/23 08:28 Acetaminophen 325 Mg Tablet PO 650 mg Q6H PRN Administration Mild/Mod Pain Or Temp >/= 101 Gabapentin 300 mg 02/11/23 22:35 02/12/23 08:28 Gabapentin 300 Mg Capsule PO 300 mg BID MISSY Administration Sodium Chloride 1,000 mls @ 75 mls/hr 02/11/23 22:35 02/11/23 23:13 Sodium Chloride 0.9% IV 75 mls/hr .[id number] MISSY Administration Piperacillin Sod/Tazobactam 50 mls @ 12.5 mls/hr 02/12/23 04:00 02/12/23 09:17 Sod 3.375 gm/ Sodium Chloride IV Infused Q8H MISSY Infusion Sodium Chloride 1,000 mls @ 30 mls/hr 02/12/23 13:30 02/12/23 13:28 Sodium Chloride 0.9% IV 30 mls/hr .Q24H MISSY Administration Pantoprazole Sodium 40 mg 02/11/23 22:35 02/11/23 23:14 Pantoprazole 40 Mg Sdv IVP 40 mg Q24H MISSY Administration PFSH Anesthesia Medical History History of back pain Smoker Surgical History (Updated 02/11/23 @ 22:36 by Imtiaz Torres MD) History of back surgery Family History (Updated 02/11/23 @ 22:36 by Imtiaz Torres MD) Mother CAD (coronary artery disease) Social History (Updated 02/11/23 @ 22:36 by Imtiaz Torres MD) Smoking and tobacco status: current every day smoker Alcohol intake: never Substance/Drug Use: never Data Anesthesia 02/12/23 04:40 02/12/23 04:40 Short CBC 02/11/23 02/12/23 Range/Units 17:00 04:40 WBC 12.46 H 8.95 (3.29-11.43) 10^3/uL Hgb 15.40 12.40 (11.27-16.99) g/dL Hct 46.7 38.4 (37-53) % MCV 94.9 93.4 (82-101) fl Plt Count 241 204 (157-399) 10^3/cmm Neut % (Auto) 76.7 68.4 % Neut # (Auto) 9.55 H 6.11 (1.8-7.7) 10^3/uL BMP 02/11/23 02/12/23 17:00 04:40 Sodium 136 135 L Potassium 4.1 4.2 Chloride 99 103 Carbon Dioxide 27 24 BUN 17 17 Creatinine 0.7 0.8 Glucose 121 H 111 Calcium 9.1 8.1 L Cardiac Enzymes 02/12/23 Range/Units 04:40 NT-Pro-B Natriuret Pep 882 H (0-450) pg/mL Liver Function 02/11/23 Range/Units 17:00 Total Bilirubin 1.0 (0.15-1.2) mg/dL AST 13 (0-40) U/L ALT 9 (0-41) U/L Alkaline Phosphatase 70 (40-130) U/L Albumin 4.3 (3.5-5.2) g/dL Coags 02/11/23 02/11/23 17:00 17:00 ESR 11 H C-Reactive Protein 147.2 H Microbiology 02/11/23 19:23 Gram Stain - Final Other Source 02/11/23 17:10 Blood Culture - Preliminary Blood SPECIMEN COLLECTED 02/11/23 17:00 Blood Culture - Preliminary Blood SPECIMEN COLLECTED Cardiac Studies: No Data to Display
--- NOTE | 2023-02-12 16:21 | PM.PN ---
Subjective Subjective: Admitted overnight. H&P and labs appreciated. Examination patient lying comfortably in bed. States he is feeling better than when he came in. Gives no history of trauma, processes skin breakdown in recent history. Does not give any history of any dental infections. Appreciate scannable fluid results. Plan for arthroscopy with orthopedic later in the day today. Appreciate blood work. Has remained hemodynamically stable and afebrile on room air. Vitals/I&O/Wt Last Vital Signs Temp 98.0 F 02/12/23 11:48 Pulse 70 02/12/23 11:48 Resp 15 02/12/23 11:48 BP 104/64 02/12/23 11:48 Pulse Ox 93 02/12/23 11:48 O2 Del Method Room Air 02/12/23 11:48 02/12/23 02/12/23 02/12/23 06:59 14:59 22:59 Intake Total 250 / 300 50 / 50 Balance 250 / 300 50 / 50 Weight last 48 hrs Weight 57.606 kg Weight 57.606 kg Weight 57.606 kg Physical Exam Const: COMMON NORMALS: no acute distress and patient oriented x3 HENMT: COMMON NORMALS: normocephalic HEAD & SCALP: normocephalic Eye: COMMON NORMALS: Equal, round and reactive pupils present and EOMs intact bilaterally PUPIL: Yes Equal, round and reactive pupils present Neck/C-Spine: COMMON NORMALS: no JVD Lymph: LYMPHATIC: no lymphadenopathy noted Resp: COMMON NORMALS: normal respiratory effort, No retractions, No use of accessory muscles and clear to auscultation bilaterally AUSCULTATION: clear to auscultation bilaterally Cardio: COMMON NORMALS: no JVD, regular rate, regular rhythm, S1 normal heart sound present and S2 normal heart sound present RATE: regular rate RHYTHM: regular rhythm HEART SOUNDS: S1 normal heart sound present and S2 normal heart sound present GI: COMMON NORMALS: Normal to inspection, nondistended, normoactive bowel sounds present, Soft to palpation and non-tender PALPATION: Yes Soft to palpation Extremity: COMMON NORMALS: no pedal edema OTHER: Right knee, erythematous, swollen, hot, tender, pain with range of motion Bilateral DP PT pulses palpable Neuro: COMMON NORMALS: patient oriented x3, CN's II-XII intact bilaterally and moves all extremities Psych: COMMON NORMALS: mental status grossly normal Data 02/12/23 04:40 02/12/23 04:40 Micro: Microbiology 02/11/23 19:23 Gram Stain - Final Other Source 02/11/23 17:10 Blood Culture - Preliminary Blood SPECIMEN COLLECTED 02/11/23 17:00 Blood Culture - Preliminary Blood SPECIMEN COLLECTED A&P Assessment and plan (1) Septic arthritis of knee, right: Orthopedic consulted. Underwent bedside joint tap in the ER yesterday. Fluid studies consistent with more than 90,000 WBCs. Gram stain negative. Culture pending. Sinovial fluid crystals results pending. CRP elevated. Follow-up cultures. Check MRSA swab. Plan for arthroscopy today. We will request further cultures. For now continue with empiric vancomycin and Zosyn. We will consult ID for further recommendations. Patient most likely will need 6 weeks of IV antibiotics. Plan Full code N.p.o. for orthopedic procedure Protonix for PUD prophylaxis Heparin 5000 every 12 hourly for DVT prophylaxis postprocedure. Attestations Medical Necessity Statement*: Requires further hospitalization for management of septic arthritis of knee requiring arthrocentesis while outpatient antibiotics are sought. Diagnoses Septic arthritis of knee, right M00.9
[2023-02-12] MEDS: vancomycin 1,000 MG in sodium chloride 0.9% 250 ML 250 MG IV (16:34)
[2023-02-12] MEDS: acetaminophen 1,000 MG/100 ML PIGGYBACK 400 MG IV (16:35)
--- NOTE | 2023-02-12 16:42 | PM.CONSULT ---
Providers/Reason For Consult Consulting Physician/Specialty*: Lidia Chong Md/ Infectious Disease Reason for Consult*: septic arthritis Requesting Physician: Cristi Rhodes MD Attending Physician: Cristi Rhodes MD Primary Care Provider: Jean Bedolla MD History of Present Illness History of Present Illness Wang Martinez is a 77 year old male who presented to the emergency room last night with chief complaints of right knee pain and swelling that has been going on for the past 3 days. He has been unable to walk as a result of this. Does not recall any recent trauma. He has had some chills but no known fever. In the ER he was noted to have a swollen right knee joint which was aspirated. Synovial fluid analysis revealed 92,000 WBCs, 87% PMNLs' CRP elevated at 147. Due to concern for septic arthritis he was seen by orthopedic surgery and is planned for right knee irrigation and debridement. He has been started on empiric zosyn and received a dose of vancomycin overnight. Crystal analysis is pending. Review of Systems General: Reports: 10 or more systems reviewed and unremarkable except in HPI and below Const: Denies: fever(s), chills or body aches Eyes: Denies: change in vision, blurry vision or photophobia ENMT: Reports: hoarseness; Denies: throat pain, enlarged tonsils, odynophagia or nasal congestion Card: Denies: chest pain, palpitations, irregular heart rhythm, edema, swelling of feet/ankles, lightheadedness, pre-syncope, dyspnea on exertion or orthopnea Resp: Denies: dyspnea, productive cough, non-productive cough, wheezing, stridor, pain on inspiration, change in phlegm color, hemoptysis or chest congestion GI: Denies: abdominal pain, nausea, vomiting, hematemesis, coffee ground emesis, dysphagia, heartburn, diarrhea, constipation, GI cramping, change in stool character, hematochezia or melena : Denies: flank pain, dysuria, urinary frequency, urinary urgency, urinary hesitancy or hematuria Musc: Denies: neck pain, back pain, extremity pain, joint swelling, joint warmth or deformity Neuro: Denies: headache(s), numbness in extremities, weakness in extremities, sensory changes, difficulty walking, frequent falls, dizziness, vertigo, behavioral changes, Slurred speech present or seizure-like activity Psych: Denies: anxiety, depression, suicidal ideation or homicidal ideation Endo: Denies: polyuria, polydipsia, tired all the time, cold intolerance or hot flashes Johnny/Lymph: Denies: easy bruising or easy bleeding Medications/Allergies Home Medications Medication Instructions Recorded Confirmed Last Taken Type gabapentin 300 mg capsule See Rx Instructions .Route 05/17/22 02/12/23 Unknown Rx .COMPLEX #60 caps albuterol sulfate 90 mcg/actuation See Rx Instructions .Route 07/27/22 02/12/23 Unknown Rx aerosol inhaler .COMPLEX #18 grams fluticasone 500 mcg-salmeterol 50 See Rx Instructions .Route 08/09/22 02/12/23 Unknown Rx mcg/dose blistr powdr for .COMPLEX #60 ea inhalation pantoprazole 40 mg tablet,delayed See Rx Instructions .Route 09/16/22 02/12/23 Unknown Rx release .COMPLEX #30 tabs tramadol 50 mg tablet 50 mg PO Q6H PRN pain #120 tabs 09/16/22 02/12/23 Unknown Rx acetaminophen 325 mg tablet 650 mg PO QAM 02/12/23 02/12/23 Unknown History Allergies Allergy/AdvReac Type Severity Reaction Status Date / Time No Known Allergies Allergy Verified 02/11/23 15:35 Current Medications Generic Name Dose Route Start Last Admin Trade Name Freq PRN Reason Stop Dose Admin Acetaminophen 650 mg 02/11/23 22:35 02/12/23 08:28 Acetaminophen 325 Mg Tablet PO 650 mg Q6H PRN Administration Mild/Mod Pain Or Temp >/= 101 Gabapentin 300 mg 02/11/23 22:35 02/12/23 08:28 Gabapentin 300 Mg Capsule PO 300 mg BID MISSY Administration Sodium Chloride 1,000 mls @ 75 mls/hr 02/11/23 22:35 02/11/23 23:13 Sodium Chloride 0.9% IV 75 mls/hr .[id number] MISSY Administration Piperacillin Sod/Tazobactam 50 mls @ 12.5 mls/hr 02/12/23 04:00 02/12/23 09:17 Sod 3.375 gm/ Sodium Chloride IV Infused Q8H MISSY Infusion Vancomycin HCl 1,000 mg/ 250 mls @ 250 mls/hr 02/12/23 17:00 02/12/23 16:34 Sodium Chloride IV 250 mls/hr Q18H MISSY Administration Pantoprazole Sodium 40 mg 02/11/23 22:35 02/11/23 23:14 Pantoprazole 40 Mg Sdv IVP 40 mg Q24H MISSY Administration PFSH Acute PFSH: Medical History History of back pain Smoker Surgical History History of back surgery Family History Mother CAD (coronary artery disease) Social History Smoking and tobacco status: current every day smoker Alcohol intake: never Substance/Drug Use: never Vitals/I&O/Wt Last Vital Signs Temp 98.0 F 02/12/23 11:48 Pulse 70 02/12/23 11:48 Resp 15 02/12/23 11:48 BP 104/64 02/12/23 11:48 Pulse Ox 93 02/12/23 11:48 O2 Del Method Room Air 02/12/23 11:48 02/12/23 02/12/23 02/12/23 06:59 14:59 22:59 Intake Total 250 / 300 50 / 50 Balance 250 / 300 50 / 50 Weight last 48 hrs Weight 57.606 kg Weight 57.606 kg Weight 57.606 kg Physical Exam Narrative: patient in OR, unable to be seen Data 02/13/23 05:04 02/13/23 05:04 Other Labs: [facility] [address] [place] [address] DR. 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 NAME: Wang Martinez LOC: [facility] U #: [id number] AGE/SX: 77/M ROOM: [facility] RE02/11/[address]: Cristi Rhodes MD : 1945 BED: 2 DIS: FAX #: STATUS: ADM IN TLOC: Spec : [id number] Bev: 02/11/23 Status: COMP Req : [id number] Recd: 02/11/[address]: Juan Antonio Corrigan MD Ordered: SYN Analysis Test Low Normal High Flag Reference Site Syn Color RED PALE YELLOW Syn Appear CLOUDY CLEAR Syn WBC 33585 H 0-150 /uL Syn RBC 102 H 0-0 10^3/uL SYN Andrew % 5.300 % SYN Poly % 94.700 % SYN Andrew# 4.957 10^3/uL SYN Poly # 87.595 10^3/uL PATH YES Micro: Microbiology 02/11/23 19:23 Gram Stain - Final Other Source 02/11/23 17:10 Blood Culture - Preliminary Blood SPECIMEN COLLECTED 02/11/23 17:00 Blood Culture - Preliminary Blood SPECIMEN COLLECTED [facility]: [id number]: [facility] #: [id number] AGE/SX: 77/M ROOM: [facility] RE02/11/[address]: Cristi Rhodes MD : 1945 BED: 2 DIS: FAX #: STATUS: ADM IN TLOC: Spec #: [id number] Bev: 02/11/23 Status: RES Req #: [id number] Recd: 02/11/[address]: Juan Antonio Corrigan MD Src: Other Sour SpDesc: Ordered: Body FL Cult&GS Comments: Comment right knee synovial fluid Procedure Result Verified Site Gram Stain Final 02/12/23 Result MANY POLYMORPHONUCLEAR NEUTROPHILS MANY WHITE BLOOD CELLS NO ORGANISMS SEEN Body Fluid Culture PENDING A&P Assessment and plan (1) Septic arthritis of knee, right: Planned for I&D today patient unable to be seen as he has been in OR Will assess after procedure completed Based on available history and synovial fluid analysis, septic arthritis remains a possibility Can continue antibiotics as already started Will await culture results Coding Level of Care Code Acute Code for [facility] Diagnoses Septic arthritis of knee, right M00.9
--- NOTE | 2023-02-12 17:59 | W.PM.OPSUD ---
Surgery/Procedure H&P Update DATE OF PROCEDURE: February 12, 2023 DATE H&P PERFORMED: 02/12/23 H&P UPDATE INFORMATION: I have reviewed H&P completed within last 30 days, I have examined patient prior to procedure and No changes to prior documentation PREOP DIAGNOSIS: Right knee septic arthritis PRIMARY INDICATION FOR PROCEDURE: Right knee septic arthritis PLANNED PROCEDURE: Operation Date: 02/12/23 14:30 Proposed Procedures p Debridement Lower Extremity And Irrigation(Right) - DO sonia Dyer Knee Arthroscopy(Right) - Abhi Zuniga DO
[2023-02-12] MEDS: ceFAZolin 1,000 mg SDV 1000 MG IRRIGATION (18:50)
--- NOTE | 2023-02-12 19:19 | P.BOP_ITS ---
Date of procedure: [February 12, 2023] Surgeon name: [Dr. 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
--- NOTE | 2023-02-12 19:20 | P.OP_ITS ---
Operative Report Date of procedure: February 12, 2023 Surgeon: Abhi Zuniga DO Clinical Document Improvement Educator: Tee Zuniga PA-C: PA was necessary for assistance in this case with assistance with leg positioning as well as passive instrumentation to proceed with knee arthroscopy procedure as well as assist with wound closure and dressing placement. 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 Procedure done: Right knee irrigation and debridement with arthroscopy Right?knee?diagnostic and surgical arthroscopy partial medial meniscectomy Right?knee?diagnostic and surgical arthroscopy with extensive synovectomy of the medial lateral and patellofemoral compartments Intraoperative cultures obtained KINGSTON drain placed Surgeon: Abhi Zuniga DO Estimated blood loss: 10 Tourniquet: 23 minutes IV fluids: See anesthesia record Complications: None Findings: See operative report narrative Condition: stable Disposition: same day Brief History: Patient is a 77-year-old male with right?knee?pain.? Patient presented the emergency department with 3 days of worsening right knee pain significantly large joint effusion that is warm to the touch and ability to bear weight he underwent joint aspiration emergency department and findings concerning for right knee septic arthritis had WBC count of 92,000. He was admitted by the hospitalist patient's initial aspirations were sent for cultures. He was started on empiric antibiotics. He has been medically optimized and at this point in time given the concerning findings for his septic arthritis plan was to go back to the OR for a right knee irrigation debridement with arthroscopy procedure. We talked about the ins and outs procedure the risk benefits complication alternatives with surgery through shared decision-making patient elect to proceed with surgical intervention all questions answered. Procedure: Patient seen and evaluated in the preoperative holding area.? Consent was reviewed and signed with patient.? Correct extremity was then marked.? Patient seen evaluated Anesthesia Department once cleared for surgery patient was taken back to the operative suite.? Patient was transported onto the OR table in supine position.? All bony prominences well-padded patient was appropriate secured to the bed.? Once appropriately anesthetized a nonsterile tourniquet was applied to the right thigh.? The right lower extremity was then prepped and draped in standard orthopedic fashion.? Final timeout performed.? Patient had already been receiving antibiotics on the floor is recently up-to-date. Right lower extremity was elevated, tourniquet was insufflated to 250 mmHg. A standard 2 portal vertical incision diagnostic and surgical arthroscopy of the right?knee?was performed in standard fashion.? Small stab incision made in the inferolateral portal introduced trocar and arthroscope into the suprapatellar pouch.? Patient had bloody tinged synovial fluid which was subsequently aspi rated placed into a specimen cup and sent for crystals as well as aerobic and anaerobic cultures. The visualization there was visible appearing crystals there did not appear to have any malena purulence noted with this synovial fluid. Suprapatellar pouch was subsequently visualized and found to have significant synovitis but no loose bodies.? Patient had noticeable significant inflamed infrapatellar fat pad and thickening hypertrophic within the patellofemoral compartment.? Within the patellofemoral space this did not appear to be as much infectious is more inflammatory arthritis. ?The medial gutter was free of loose bodies I then introduced the arthroscope into the medial compartment.? Within the medial compartment I then established my inferior medial working portal utilizing spinal needle outside in technique.? Once established I then visualized our articular cartilage of the medial compartment with a valgus stress.? 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 Next I inspected the meniscus.? The medial meniscus had significant areas of crystalline deposits as well as crystalline deposits appearing within the chondral surfaces. With an arthroscopic probe was utilized to visual? all aspects of the meniscus.? Meniscal root was found to be intact.? Meniscus was found to be torn at the body to posterior horn junction.? I then subsequently introduced a basket forceps as well as arthroscopic shaver to perform a partial medial meniscectomy to stable meniscal tissue and then utilized a thermal wand to anneal the edges.? Next, I then performed a synovectomy of the medial compartment.? Given patient's chondromalacia there was areas of unstable articular cartilage and I subsequently performed a chondroplasty with arthroscopic shaver and thermal wand.? This completed medial compartment work. Next a introduced the arthroscope to the intercondylar notch.? PCL and ACL were intact. patient had significant thickening of the infrapatellar fat pad spanning into the medial and lateral compartments.? I then performed an extensive synovectomy with the arthroscopic shaver of the patellofemoral medial and lateral compartments as well as the intercondylar notch. Next I introduced the arthroscope into the lateral compartment the lateral compartment was found to have grade 3-4 chondromalacia.? Lateral meniscus was found to be intact however degenerative changes were noted with crystalline deposits. no findings of unstable chondral flaps. The root was intact.? This completed my work of the lateral compartment and then performed a synovectomy of the lateral compartment.? Next of the arthroscope was placed into the lateral gutter and this was free of loose bodies.? Finally I reintroduced the arthroscope into the patellofemoral compartment.? The patellofemoral was found to have grade 3-4 chondromalacia of the patellofemoral compartment.? At this point I utilized arthroscopic shaver as well as thermal wand to perform extensive synovectomy of the patellofemoral compartment. This completed my work of the patellofemoral space.? I then switch my portal sites to the medial working portal.? Completed the rest of my synovectomy and the rest of my examination arthroscopy was normal. At this point in time I flushed the knee with 9 L of normal saline completing my extensive synovectomy and debridement. Once again findings more consistent with an inflammatory arthritis. We will continue to monitor cultures. Under direct visualization prior to removing the trocar I made a small superior lateral stab incision and subsequently utilizing an arthroscopic grasper went and retrieved the KINGSTON drain and pulled this within the knee joint under direct visualization. Tourniquet was deflated hemostasis was satisfactory I then hooked up the KINGSTON drain to a bulb syringe. All fluid was suctioned from the joint.? ?All instruments were withdrawn.? Portal sites were closed with interrupted nylon suture.? portal sites were then covered with with Xeroform 4 x 4's ABD Curlex and Walker wrap.? Patient was then subsequently awakened from anesthesia and taken to PACU in stable condition. Disposition: Patient taken to PACU in stable condition recovering well. Patient taken back to the floor postoperatively will receive appropriate discharge instructions as well as pain medication and DVT prophylaxis. Patient to follow- up in orthopedic office in 2 weeks. He will be weightbearing as tolerated to the right lower extremity on the floor. PT/OT. Internal medicine on board as primary and appreciate their medical management defer to them for antibiotic regiment postoperatively. We will continue to monitor cultures. Patient understands and agrees with current plan.? All questions answered.
[2023-02-12] MEDS: fentaNYL 50 mcg/mL INJ 2mL IVP (19:30)
--- NOTE | 2023-02-12 19:31 | P.PCN_ITS ---
PACU note Narrative: Patient is a 77-year-old male that just underwent a right knee arthroscopy. Pt transferred to PACU in stable condition. Dressing is dry. KINGSTON drain in place with small amount of bloody drainage. pt is awake and alert. pt can wiggle toes and plantarflex and dorsiflex foot. pt able to perform straight leg raise, Femoral nerve intact. Distal pulses are palpable toes are warm and well- perfused. Cap refill is normal and under 2 seconds. Sensation to foot is intact. Pain is controlled. Exam: awake Disposition: admitted
[2023-02-12] MEDS: HYDROmorphone 1 mg/mL INJ 1 mL 0.5 MG IVP (19:40)
--- NOTE | 2023-02-12 20:00 | ANE.PACU2 ---
Inpatient post-anesthesia follow up: Airway intact: Yes Vital signs: Temperature 98.1 F Pulse Rate [Right Dorsalis 60 Pedis] Pulse Rate 78 Respiratory Rate 17 Blood Pressure 113/57 Pulse Oximetry 91 Oxygen Delivery Me thod Room Air Oxygen Flow Rate 6 Fraction of Inspir ed Oxygen Hydration adequate: Yes Nausea and vomiting: No Pain level: 2 Mental status: Baseline
[2023-02-12 20:39] LABS: Crystals, Fluid SENT TO PATHOLOGY
[2023-02-12] MEDS: pantoprazole 40 mg SDV IVP (22:00)
[2023-02-12] MEDS: oxyCODONE 5 mg IR Tab/Cap PO (22:01)
[2023-02-13] VITALS (8 sets, daily range): BP systolic 97–113; BP diastolic 50–61; PULSE 54–78; RESP 15–17; TEMP 36.7–37.1; O2SAT 91–95
[2023-02-13] MEDS: sodium chloride 0.9% 1,000 ML 75 ML IV (00:54)
[2023-02-13] MEDS: piperacillin-tazobactam 3.375 GM in sodium chloride 0.9% (plus) 50 ML IV ×3 (00:57→17:43)
[2023-02-13] MEDS: oxyCODONE 5 mg IR Tab/Cap PO (03:50)
[2023-02-13 06:10] LABS: Basophils % 0.1 %; Hematocrit 37.5 % (37-53); Lymphocytes # 1.1 10^3/uL (0.8-4.8); Lymphocytes % 11.4 %; Mean Corpuscular HGB Conc 32.5 g/dL (30-55); Mean Corpuscular Volume 95.2 fl (82-101); Mean Platelet Volume 10.8 fL (7.4-10.4); Monocytes # 1.2 10^3/uL (0.2-0.9); Monocytes % 12.5 %; Neutrophils # 7.05 10^3/uL (1.8-7.7); Neutrophils % 75.7 %; Nucleated Red Blood Cells % 0 %; Platelet Count 205 10^3/cmm (157-399); Red Blood Count 3.94 10^6/uL (3.85-5.65); Red Cell Distribution Width 13.5 % (12.1-15.1); White Blood Count 9.31 10^3/uL (3.29-11.43)
[2023-02-13 06:30] LABS: Alanine Aminotransferase 6 U/L (0-41); Albumin Level 2.8 g/dL (3.5-5.2); Alkaline Phosphatase 55 U/L (40-130); Anion Gap 12.2 (5-19); Aspartate Amino Transferase 10 U/L (0-40); Blood Urea Nitrogen 18 mg/dL (8-23); Calcium 7.8 mg/dL (8.5-10.5); Carbon Dioxide 22 mmol/L (22-29); Chloride 107 mmol/L (98-107); Globulin 2.6 g/dL (1.3-4.6); Glucose 156 mg/dL (65-115); Osmolality Calculated 289 mOsm/kg (285-295); Potassium 4.2 mmol/L (3.5-5.1); Sodium 137 mmol/L (136-145); Total Bilirubin 0.2 mg/dL (0.15-1.2); Total Protein 5.4 g/dL (6.6-8.7)
[2023-02-13 06:54] LABS: Folate Level 9.7 ng/mL (4.5-32.2)
[2023-02-13] MEDS: cyanocobalamin 1,000 mcg/mL SDV 1000 MCG IM (08:35)
[2023-02-13] MEDS: calcium carb-vit d 600mg/400unit 1 Tablet 1 EACH PO ×2 (08:35→17:44)
[2023-02-13] MEDS: gabapentin 300 mg Capsule PO ×2 (08:35→17:44)
[2023-02-13] MEDS: TRAMadol 50 mg Tablet PO (08:44)
--- NOTE | 2023-02-13 10:00 | PM.PN ---
Subjective Subjective: Infectious disease progress note. Patient is status post I&D of the knee in the OR yesterday. Denies any new complaints. States pain is well controlled. Gram stain without any organisms from synovial fluid aspirate taken in the ER. OR cultures are still pending. Per review of op note appears that crystals were encountered intraoperatively. Medications: Reviewed: Yes Vitals/I&O/Wt Last Vital Signs Temp 98.1 F 02/13/23 12:00 Pulse 78 02/13/23 12:00 Resp 17 02/13/23 12:00 BP 113/57 02/13/23 12:00 Pulse Ox 91 02/13/23 11:33 O2 Del Method Room Air 02/13/23 03:48 O2 Flow Rate 6 02/12/23 19:17 02/12/23 02/13/23 02/13/23 22:59 06:59 14:59 Intake Total 1844.5 / 1894.5 50 / 1944.5 480 / 480 Output Total 200 / 210 Balance 1834.5 / 1884.5 -150 / 1734.5 480 / 480 Weight last 48 hrs Weight 57.606 kg Weight 57.606 kg Weight 57.606 kg Physical Exam Narrative: General: No acute distress, AO x3 HEENT: PERRLA, pupils bilaterally equal and reactive, pallors not present Chest: Normal vesicular breath sounds, no added sounds, equal good air entry bilaterally CVS: S1-S2 regular, no murmurs, no tachycardia, no gallops, no rubs Abdomen: Soft, nontender, no organomegaly, bowel sounds present Neuro: No focal deficits, no facial deformity, AO x3, power 5/5 in all limbs Extremities: Surgical dressing not opened for exam by me Data 02/13/23 05:04 02/13/23 05:04 Micro: Microbiology 02/12/23 19:30 Gram Stain synovial fluid - pending Knee - #1 (OR specimen) 02/11/23 17:10 Blood Culture - Preliminary Blood NEGATIVE TO DATE 02/11/23 17:00 Blood Culture - Preliminary Blood NEGATIVE TO DATE 02/11/23 19:23 (Er aspirate) Gram Stain - Final Result MANY POLYMORPHONUCLEAR NEUTROPHILS MANY WHITE BLOOD CELLS NO ORGANISMS SEEN Other Source A&P Assessment and plan (1) Septic arthritis of knee, right: 77-year-old male without prior history of trauma presenting with 3 days of sudden onset of knee swelling pain and difficulty with ambulation. Synovial fluid analysis with ~80,000 WBCs, predominantly PMNLs Differential at this time include septic arthritis versus crystal arthropathy. Pending crystal analysis from synovial aspirates taken from ER and OR. Gram stain from aspirate taken in the ER thus far negative, abundant white blood cells noted. Gram stain from OR aspirate currently pending. Cultures pending from both ER and OR aspirates. Continue empiric piperacillin/tazobactam and vancomycin while pending cultures. Further course to be decided on reports of pending studies. Blood cultures negative to date. Appears to be monoarticular involvement so far. Attestations Medical Necessity Statement*: per admitting Coding Level of Care Code Acute Code for [facility] Diagnoses Septic arthritis of knee, right M00.9
[2023-02-13 11:44] LABS: Uric Acid 3.3 mg/dL (3.4-7.0)
[2023-02-13] MEDS: vancomycin 1,000 MG in sodium chloride 0.9% 250 ML 250 MG IV (12:23)
[2023-02-13] MEDS: colchicine 0.6 mg Tablet PO ×2 (12:26→17:45)
--- NOTE | 2023-02-13 14:39 | P.PN_ITS ---
Subjective Subjective: Patient is a 77-year-old male that is 1 day post op right knee arthroscopy and bulb drain in place in knee. Denies any fevers. Denies any acute events overnight. Patient states that his pain is controlled, but he does have worsening pain with any weightbearing or any bending of knee. Patient's bulb drain was about 10% full of bloody and clear drainage. No purulent drainage seen in bulb. Vitals/I&O/Wt Last Vital Signs Temp 98.1 F 02/13/23 12:00 Pulse 78 02/13/23 12:00 Resp 17 02/13/23 12:00 BP 113/57 02/13/23 12:00 Pulse Ox 91 02/13/23 11:33 O2 Del Method Room Air 02/13/23 03:48 O2 Flow Rate 6 02/12/23 19:17 02/12/23 02/13/23 02/13/23 22:59 06:59 14:59 Intake Total 1844.5 / 1894.5 50 / 1944.5 480 / 480 Output Total 200 / 210 Balance 1834.5 / 1884.5 -150 / 1734.5 480 / 480 Weight last 48 hrs Weight 127 lb Weight 127 lb Weight 127 lb Physical Exam Const: COMMON NORMALS: no acute distress and alert GENERAL APPEARANCE: cooperative HENMT: COMMON NORMALS: atraumatic HEAD & SCALP: atraumatic Resp: COMMON NORMALS: normal respiratory effort EFFORT & INSPECTION: Yes able to speak in complete sentences and No respiratory distress Extremity: NARRATIVE EXTREMITY EXAM: Right knee?Walker wrap and dressing are dry and intact. Bulb drain is present that has a small amount of clear and bloody discharge. No purulent drainage seen in bulb. Limited range of motion in knee due to pain. Patient was able to perform right straight leg raise and could dorsiflex and plantarflex foot. Patient can also wiggle toes and his toes are warm and well-perfused with a normal cap refill under 2 seconds. Neuro: SENSORIUM/ORIENTATION: Yes alert Skin: GENERAL SKIN EXAM: dry skin Data 02/13/23 05:04 02/13/23 05:04 Micro: Microbiology 02/11/23 19:23 Gram Stain - Final Other Source Body Fluid Culture - Preliminary 02/12/23 19:30 Gram Stain - Final Knee - #1 02/11/23 17:10 Blood Culture - Preliminary Blood NEGATIVE TO DATE 02/11/23 17:00 Blood Culture - Preliminary Blood NEGATIVE TO DATE A&P Assessment and plan (1) Septic arthritis of knee, right: (2) Inflammatory arthropathy: Plan Plan: -Hospitalist on board for medical management -VTE prophylaxis-Per primary-recommend aspirin -Keep dressing and bulb drain on and in place. We will remove dressing and drain tomorrow. -pain control -Labs reviewed -Synovial fluid culture negative to date -Antibiotics per primary Attestations Medical Necessity Statement*: Ongoing care for right knee septic arthritis Coding Level of Care Code Acute Code for [facility] Diagnoses Septic arthritis of knee, right M00.9 Inflammatory arthropathy M19.90
--- NOTE | 2023-02-13 14:40 | P.PN_ITS ---
Subjective Subjective: Admitted overnight. H&P and labs appreciated. Examination patient lying comfortably in bed. States he is feeling better than when he came in. Gives no history of trauma, processes skin breakdown in recent history. Does not give any history of any dental infections. Appreciate scannable fluid results. Plan for arthroscopy with orthopedic later in the day today. Appreciate blood work. Has remained hemodynamically stable and afebrile on room air. Vitals/I&O/Wt Last Vital Signs Temp 98.1 F 02/13/23 12:00 Pulse 78 02/13/23 12:00 Resp 17 02/13/23 12:00 BP 113/57 02/13/23 12:00 Pulse Ox 91 02/13/23 11:33 O2 Del Method Room Air 02/13/23 03:48 O2 Flow Rate 6 02/12/23 19:17 02/12/23 02/13/23 02/13/23 22:59 06:59 14:59 Intake Total 1844.5 / 1894.5 50 / 1944.5 480 / 480 Output Total 200 / 210 Balance 1834.5 / 1884.5 -150 / 1734.5 480 / 480 Weight last 48 hrs Weight 57.606 kg Weight 57.606 kg Weight 57.606 kg Physical Exam Const: COMMON NORMALS: no acute distress and patient oriented x3 HENMT: COMMON NORMALS: normocephalic HEAD & SCALP: normocephalic Eye: COMMON NORMALS: Equal, round and reactive pupils present and EOMs intact bilaterally PUPIL: Yes Equal, round and reactive pupils present Neck/C-Spine: COMMON NORMALS: no JVD Lymph: LYMPHATIC: no lymphadenopathy noted Resp: COMMON NORMALS: normal respiratory effort, No retractions, No use of ac cessory muscles and clear to auscultation bilaterally AUSCULTATION: clear to auscultation bilaterally Cardio: COMMON NORMALS: no JVD, regular rate, regular rhythm, S1 normal heart sound present and S2 normal heart sound present RATE: regular rate RHYTHM: regular rhythm HEART SOUNDS: S1 normal heart sound present and S2 normal heart sound present GI: COMMON NORMALS: Normal to inspection, nondistended, normoactive bowel sounds present, Soft to palpation and non-tender PALPATION: Yes Soft to palpation Extremity: COMMON NORMALS: no pedal edema OTHER: Right knee, erythematous, swollen, hot, tender, pain with range of motion Bilateral DP PT pulses palpable Neuro: COMMON NORMALS: patient oriented x3, CN's II-XII intact bilaterally and moves all extremities Psych: COMMON NORMALS: mental status grossly normal Data 02/13/23 05:04 02/13/23 05:04 Micro: Microbiology 02/11/23 19:23 Gram Stain - Final Other Source Body Fluid Culture - Preliminary 02/12/23 19:30 Gram Stain - Final Knee - #1 02/11/23 17:10 Blood Culture - Preliminary Blood NEGATIVE TO DATE 02/11/23 17:00 Blood Culture - Preliminary Blood NEGATIVE TO DATE A&P Assessment and plan (1) Septic arthritis of knee, right: Underwent arthroscopy yesterday. Concerns for crystalline arthropathy as per OR note. Gram stain from synovial aspiration so far negative but OR cultures showing gram-positive cocci in pairs. Will await final cultures. MRSA swab not yet collected. Discussed in detail with outpatient pathology at [place] and [place]. As per them sample from synovial aspiration so far negative for crystals because of high crystal burden intraoperatively for now we will start patient on colchicine 0.6 mg twice daily. Awaiting synovial we will crystal results from OR. Check uric acid. Hold off on starting steroids for now. Start on ibuprofen 400 mg 3 times daily. Monitor renal functions. Appreciate orthopedic and ID recommendations. For now continue with empiric vancomycin and Zosyn. Most likely patient would need 4 to 6 weeks of IV antibiotics as per culture results. Weightbearing and PT as per orthopedic team. Plan B12 deficiency: B12 shot 1000 mcg daily for next 3 days. Full code Regular diet Protonix for PUD prophylaxis Heparin 5000 every 12 hourly for DVT prophylaxis postprocedure. Attestations Medical Necessity Statement*: Requires further hospitalization for management of septic arthritis of the knee while outpatient antibiotics are sought as per culture results Diagnoses Septic arthritis of knee, right M00.9
[2023-02-13] MEDS: ibuprofen 200 mg Tablet 400 MG PO ×2 (17:44→21:48)
[2023-02-13] MEDS: pantoprazole 40 mg SDV IVP (21:48)
[2023-02-14] VITALS (8 sets, daily range): BP systolic 104–148; BP diastolic 56–73; PULSE 52–87; RESP 15–19; TEMP 36.3–37.1; O2SAT 91–96
[2023-02-14] MEDS: piperacillin-tazobactam 3.375 GM in sodium chloride 0.9% (plus) 50 ML IV ×3 (00:03→18:22)
[2023-02-14 04:01] LABS: Add Urine Microscopic? NO; Charge for UA Resulting for Rev
[2023-02-14 04:02] LABS: Bilirubin Urine Neg (Negative); Blood Urine Neg (Negative); Glucose Urine UA Norm (Normal); Ketones Urine Negative (Negative); Leukocyte Esterase Urine Negative (Negative); Nitrate Urine Negative (Negative); Protein Urine Neg (Negative); Specific Gravity, Urine 1.015 (1.005-1.030); Urine Appearance Clear (CLEAR); Urine Color Yellow (Yellow); Urobilinogen Urine Neg (Negative); pH Urine 6 (5-7)
[2023-02-14 04:12] LABS: Amphetamines Screen Urine Negative (Negative); Barbiturates Screen Urine Negative (Negative); Benzodiazepines Screen Urine Negative (Negative); Cocaine Screen Urine Negative (Negative); Opiate Screen Urine Positive (Negative); PCP Screen Urine Negative (Negative); THC Screen Urine Negative (Negative)
[2023-02-14 04:33] LABS: Vancomycin Trough 5.8 ug/mL (10-15)
[2023-02-14 04:34] LABS: C Reactive Protein 84.7 mg/L (0.0-4.9)
[2023-02-14] MEDS: oxyCODONE 5 mg IR Tab/Cap PO (05:05)
[2023-02-14] MEDS: vancomycin 1,000 MG in sodium chloride 0.9% 250 ML 250 MG IV ×2 (05:06→18:21)
[2023-02-14] MEDS: calcium carb-vit d 600mg/400unit 1 Tablet 1 EACH PO ×2 (10:07→18:13)
[2023-02-14] MEDS: cyanocobalamin 1,000 mcg/mL SDV 1000 MCG IM (10:07)
[2023-02-14] MEDS: gabapentin 300 mg Capsule PO ×2 (10:08→18:13)
[2023-02-14] MEDS: ibuprofen 200 mg Tablet 400 MG PO ×3 (10:45→20:44)
[2023-02-14] MEDS: colchicine 0.6 mg Tablet PO ×2 (10:45→18:13)
--- NOTE | 2023-02-14 10:48 | PM.PN ---
Subjective Subjective: No acute events overnight. On examination patient lying comfortably in bed. States he is feeling slightly better but still sore in his knee. Not ambulating much. Only ambulating to bedside commode. Encouraged patient to walk more. Denies any nausea, vomiting, headache. Has remained hemodynamically stable and afebrile on room air. Blood work today shows CRP improving to 84. CBC and CMP not done today. Medications: Reviewed: Yes Vitals/I&O/Wt Last Vital Signs Temp 97.4 F L 02/14/23 07:38 Pulse 72 02/14/23 07:38 Resp 17 02/14/23 07:38 BP 118/61 02/14/23 07:38 Pulse Ox 94 02/14/23 07:38 O2 Del Method Room Air 02/14/23 07:38 O2 Flow Rate 6 02/12/23 19:17 02/13/23 02/14/23 02/14/23 22:59 06:59 14:59 Intake Total 1950 / 2430 300 / 2730 680 / 680 Output Total 300 / 300 70 / 370 150 / 150 Balance 1650 / 2130 230 / 2360 530 / 530 Weight last 48 hrs Weight 57.606 kg Weight 57.606 kg Physical Exam Const: COMMON NORMALS: no acute distress and patient oriented x3 HENMT: COMMON NORMALS: normocephalic HEAD & SCALP: normocephalic Eye: COMMON NORMALS: Equal, round and reactive pupils present and EOMs intact bilaterally PUPIL: Yes Equal, round and reactive pupils present Neck/C-Spine: COMMON NORMALS: no JVD Lymph: LYMPHATIC: no lymphadenopathy noted Resp: COMMON NORMALS: normal respiratory effort, No retractions, No use of accessory muscles and clear to auscultation bilaterally AUSCULTATION: clear to auscultation bilaterally Cardio: COMMON NORMALS: no JVD, regular rate, regular rhythm, S1 normal heart sound present and S2 normal heart sound present RATE: regular rate RHYTHM: regular rhythm HEART SOUNDS: S1 normal heart sound present and S2 normal heart sound present GI: COMMON NORMALS: Normal to inspection, nondistended, normoactive bowel sounds present, Soft to palpation and non-tender PALPATION: Yes Soft to palpation Extremity: COMMON NORMALS: no pedal edema OTHER: Right knee, erythematous, swollen, hot, tender, pain with range of motion Bilateral DP PT pulses palpable Neuro: COMMON NORMALS: patient oriented x3, CN's II-XII intact bilaterally and moves all extremities Psych: COMMON NORMALS: mental status grossly normal Data 02/13/23 05:04 02/13/23 05:04 Micro: Microbiology 02/12/23 19:30 Anaerobic Culture - Preliminary Knee - #2 02/12/23 10:19 Anaerobic Culture - Preliminary Synovial Fluid Abscess Culture - Preliminary 02/12/23 19:30 Gram Stain - Final Knee - #1 Wound Culture - Preliminary 02/11/23 19:23 Gram Stain - Final Other Source Body Fluid Culture - Preliminary A&P Assessment and plan (1) Septic arthritis of knee, right: Underwent arthroscopy on 02/12. Concerns for crystalline arthropathy as per OR note. Gram stain from synovial aspiration so far negative but OR cultures showing gram-positive cocci in pairs. Will await final cultures. MRSA swab not yet collected. Discussed in detail with outpatient pathology at [place] and [place]. As per them sample from synovial aspiration so far negative for crystals because of high crystal burden intraoperatively for now we will start patient on colchicine 0.6 mg twice daily. Awaiting synovial we will crystal results from OR. Check uric acid. Hold off on starting steroids for now. Start on ibuprofen 400 mg 3 times daily. Monitor renal functions. Appreciate orthopedic and ID recommendations. For now continue with empiric vancomycin and Zosyn. Most likely patient would need 4 to 6 weeks of IV antibiotics as per culture results. Weightbearing and PT as per orthopedic team. Plan B12 deficiency: B12 shot 1000 mcg daily for next 3 days. Plan for the day: Follow-up Crystal study from the sinovial fluid. Follow-up OR culture report. Continue with empiric antibiotics. Hold off on PICC line placement until culture results available. Awaiting culture results before planning empiric outpatient antibiotics. For now continue with colchicine and Motrin 400 3 times daily. Monitor renal functions. Uric acid within normal limits so for now we will hold off on allopurinol. Appreciate ID and orthopedic recommendations. Full code Regular diet Protonix for PUD prophylaxis Heparin 5000 every 12 hourly for DVT prophylaxis postprocedure. Attestations Medical Necessity Statement*: Requires further hospitalization for management of septic right knee while outpatient antibiotics are set up as per culture results. Diagnoses Septic arthritis of knee, right M00.9
[2023-02-14 11:14] LABS: Alanine Aminotransferase 9 U/L (0-41); Albumin Level 2.9 g/dL (3.5-5.2); Alkaline Phosphatase 52 U/L (40-130); Anion Gap 13.8 (5-19); Aspartate Amino Transferase 13 U/L (0-40); Blood Urea Nitrogen 15 mg/dL (8-23); Calcium 7.8 mg/dL (8.5-10.5); Carbon Dioxide 24 mmol/L (22-29); Chloride 102 mmol/L (98-107); Globulin 1.9 g/dL (1.3-4.6); Glucose 101 mg/dL (65-115); Osmolality Calculated 283 mOsm/kg (285-295); Potassium 3.8 mmol/L (3.5-5.1); Sodium 136 mmol/L (136-145); Total Bilirubin 0.4 mg/dL (0.15-1.2); Total Protein 4.8 g/dL (6.6-8.7)
--- NOTE | 2023-02-14 15:57 | P.PN_ITS ---
Subjective Subjective: Patient seen and examined today. He is had consistent steady improvement he has able to actively range his knee now with minimal to no pain his CRP is down trended. He is responded appropriately to therapeutic treatment with surgical intervention. I pulled his KINGSTON drain as he has had only 50 cc out over the past shift and a half. orthopedic surgery team will sign off and follow peripherally if there is any questions pertaining to patient's care for further contact orthopedic team purchasing contracting clerk. I will see him in the office in 2 weeks. Patient understands agrees with current plan. All questions answered. Internal medicine at this point I will defer to internal medicine for Vitals/I&O/Wt Last Vital Signs Temp 97.8 F 02/14/23 12:39 Pulse 87 02/14/23 12:39 Resp 19 H 02/14/23 12:39 BP 148/73 02/14/23 12:39 Pulse Ox 91 02/14/23 12:39 O2 Del Method Room Air 02/14/23 12:39 O2 Flow Rate 6 02/12/23 19:17 02/14/23 02/14/23 02/14/23 06:59 14:59 22:59 Intake Total 300 / 2730 1160 / 1160 Output Total 70 / 370 150 / 150 Balance 230 / 2360 1010 / 1010 Physical Exam Const: COMMON NORMALS: no acute distress and alert GENERAL APPEARANCE: cooperative HENMT: COMMON NORMALS: atraumatic HEAD & SCALP: atraumatic Resp: COMMON NORMALS: normal respiratory effort EFFORT & INSPECTION: Yes able to speak in complete sentences and No respiratory distress Extremity: NARRATIVE EXTREMITY EXAM: Right knee?Walker wrap and dressing are dry and intact. Bulb drain is present that has a small amount of clear and bloody discharge. Only 50 cc out over the past shift and a half. Patient is able to actively range the knee with no pain, no pain with micromotion. Significant improvement patient's swelling. Patient was able to perform right straight leg raise and could dorsiflex and plantarflex foot. Patient can also wiggle toes and his toes are warm and well-perfused with a normal cap refill under 2 seconds. Neuro: SENSORIUM/ORIENTATION: Yes alert Skin: GENERAL SKIN EXAM: dry skin Data 02/13/23 05:04 02/14/23 04:05 Other Labs: CRP 84.7 Micro: Microbiology 02/12/23 19:30 Anaerobic Culture - Preliminary Knee - #2 02/12/23 10:19 Anaerobic Culture - Preliminary Synovial Fluid Abscess Culture - Preliminary 02/12/23 19:30 Gram Stain - Final Knee - #1 Wound Culture - Preliminary 02/11/23 19:23 Gram Stain - Final Other Source Body Fluid Culture - Preliminary A&P Assessment and plan (1) Septic arthritis of knee, right: (2) Inflammatory arthropathy: Plan Plan: -Hospitalist on board for medical management -VTE prophylaxis-Per primary-recommend aspirin -Minimal output in drain 50 cc over the past shift and a half at this point in time KINGSTON drain has been pulled and patient's need redressed. Significant clinical improvement and downtrending CRP. -pain control -PT/OT -Weight-bear as tolerated to operative extremity -Labs reviewed -Synovial fluid culture negative to date -Antibiotics per primary CRP is down trended, patient's had significant clinical improvement dressing changed today at this point time no further orthopedic surgical intervention r equired at this time. Orthopedic surgery team will sign off and follow peripherally. If there is any questions pertaining to patient's care for free to contact orthopedics on-call. Patient to follow-up with me in the office in 2 weeks. Encouraged dressing changes as needed. All questions answered. Patient may weight-bear as tolerated to the operative extremity. Attestations Medical Necessity Statement*: Ongoing care right knee septic arthritis/inflammatory arthritis Coding Level of Care Code Acute Code for g [facility] Diagnoses Septic arthritis of knee, right M00.9 Inflammatory arthropathy M19.90 Time Spent (min) 30
[2023-02-14] MEDS: acetaminophen 325 mg Tablet 650 MG PO (19:28)
[2023-02-14] MEDS: pantoprazole 40 mg SDV IVP (22:42)
[2023-02-15] VITALS (7 sets, daily range): BP systolic 101–146; BP diastolic 51–85; PULSE 48–79; RESP 14–18; TEMP 36.4–37.1; O2SAT 94–97
--- NOTE | 2023-02-15 00:01 | PC.NURSE ---
0100 zosyn retimed due to last dose just finished at [id number]
[2023-02-15] MEDS: piperacillin-tazobactam 3.375 GM in sodium chloride 0.9% (plus) 50 ML IV ×3 (02:25→17:51)
[2023-02-15] MEDS: vancomycin 1,000 MG in sodium chloride 0.9% 250 ML 250 MG IV (05:12)
[2023-02-15 05:26] LABS: Basophils % 0.6 %; Eosinophils # 0.2 10^3/uL (0.0-0.8); Eosinophils % 3.4 %; Hematocrit 36.5 % (37-53); Lymphocytes # 1.3 10^3/uL (0.8-4.8); Lymphocytes % 18.5 %; Mean Corpuscular HGB Conc 32.3 g/dL (30-55); Mean Corpuscular Hemoglobin 30.2 pg (27-33); Mean Corpuscular Volume 93.4 fl (82-101); Mean Platelet Volume 10.4 fL (7.4-10.4); Monocytes # 0.8 10^3/uL (0.2-0.9); Monocytes % 11.1 %; Neutrophils # 4.59 10^3/uL (1.8-7.7); Nucleated Red Blood Cells % 0 %; Platelet Count 232 10^3/cmm (157-399); Red Blood Count 3.91 10^6/uL (3.85-5.65); Red Cell Distribution Width 13.2 % (12.1-15.1); White Blood Count 6.96 10^3/uL (3.29-11.43)
[2023-02-15 05:44] LABS: Alanine Aminotransferase 12 U/L (0-41); Albumin Level 2.5 g/dL (3.5-5.2); Alkaline Phosphatase 51 U/L (40-130); Anion Gap 10.1 (5-19); Aspartate Amino Transferase 15 U/L (0-40); Blood Urea Nitrogen 14 mg/dL (8-23); Calcium 7.7 mg/dL (8.5-10.5); Carbon Dioxide 26 mmol/L (22-29); Chloride 102 mmol/L (98-107); Globulin 2.8 g/dL (1.3-4.6); Glucose 107 mg/dL (65-115); Osmolality Calculated 279 mOsm/kg (285-295); Potassium 4.1 mmol/L (3.5-5.1); Sodium 134 mmol/L (136-145); Total Bilirubin 0.4 mg/dL (0.15-1.2); Total Protein 5.3 g/dL (6.6-8.7)
[2023-02-15] MEDS: acetaminophen 325 mg Tablet 650 MG PO (09:01)
[2023-02-15] MEDS: calcium carb-vit d 600mg/400unit 1 Tablet 1 EACH PO ×2 (09:01→17:54)
[2023-02-15] MEDS: gabapentin 300 mg Capsule PO ×2 (09:01→17:54)
[2023-02-15] MEDS: cyanocobalamin 1,000 mcg/mL SDV 1000 MCG IM (09:01)
[2023-02-15] MEDS: colchicine 0.6 mg Tablet PO (09:02)
--- NOTE | 2023-02-15 12:44 | PM.PN ---
Subjective Subjective: Infectious disease progress note. no fever, states pain is improving Gram stain with Gpc in pairs Medications: Reviewed: Yes Vitals/I&O/Wt Last Vital Signs Temp 98.3 F 02/15/23 12:00 Pulse 57 L 02/15/23 12:00 Resp 18 02/15/23 12:00 BP 109/53 02/15/23 12:00 Pulse Ox 96 02/15/23 12:00 O2 Del Method Room Air 02/15/23 12:00 O2 Flow Rate 6 02/12/23 19:17 02/14/23 02/15/23 02/15/23 22:59 06:59 14:59 Intake Total 780 / 1990 285 / 2275 135 / 135 Output Total 400 / 550 100 / 650 Balance 380 / 1440 185 / 1625 135 / 135 Physical Exam Narrative: General: No acute distress, AO x3 HEENT: PERRLA, pupils bilaterally equal and reactive, pallors not present Chest: Normal vesicular breath sounds, no added sounds, equal good air entry bilaterally CVS: S1-S2 regular, no murmurs, no tachycardia, no gallops, no rubs Abdomen: Soft, nontender, no organomegaly, bowel sounds present Neuro: No focal deficits, no facial deformity, AO x3, power 5/5 in all limbs Data 02/15/23 04:16 02/15/23 04:16 Micro: Microbiology 02/12/23 10:19 Anaerobic Culture - Preliminary Synovial Fluid Abscess Culture - Preliminary 02/12/23 19:30 Anaerobic Culture - Preliminary Knee - #2 02/12/23 19:30 Gram Stain - Final Knee - #1 Wound Culture - Preliminary 02/11/23 19:23 Gram Stain - Final Other Source Body Fluid Culture - Preliminary Other data: [facility] [address] [place] [id number] 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 NAME: Wang Martinez LOC: [facility] #: [id number] AGE/SX: 77/M ROOM: 251 RE02/11/[address]: Cristi Rhodes MD : 1945 BED: 2 DIS: FAX #: STATUS: ADM IN TLOC: Spec #: [id number] Bev: 02/12/23 Status: RES Req #: [id number] Recd: 02/12/[address]: Abhi Zuniga Src: Antony SpDesc: #2 Ordered: Anaer Procedure Result Verified Site Anaerobic Culture Preliminary 02/15/23 NO ANAEROBES ISOLATED ON DAY 2 Anaerobic Culture Preliminary (changed) 02/14/23 NO ANAEROBES ISOLATED ON DAY 1 NAME: Wang Martinez LOC: [facility] #: [id number] AGE/SX: 77/M ROOM: 251 RE02/11/[address]: Cristi Rhodes MD : 1945 BED: 2 DIS: FAX #: STATUS: ADM IN TLOC: Spec #: [id number] Bev: 02/12/23 Status: RES Req #: [id number] Recd: 02/12/[address]: Abhi Zuniga Src: Antony SpDesc: #1 Ordered: WC and GS Comments: Comment RIGHT Procedure Result Verified Site Gram Stain Final 02/13/23 Result MANY TINY GRAM POSITIVE COCCI IN PAIRS NO WHITE BLOOD CELLS Wound Culture Preliminary 02/14/23 NO GROWTH AFTER 2 DAYS Wound Culture Preliminary (changed) 02/13/23 NO GROWTH AFTER 1 DAY NAME: Wang Martinez LOC: [facility] #: [id number] AGE/SX: 77/M ROOM: 251 RE02/11/[address]: Cristi Rhodes MD : 1945 BED: 2 DIS: FAX #: STATUS: ADM IN TLOC: Spec #: [id number] Bev: 02/12/23 Status: RES Req #: [id number] Recd: 02/12/[address]: Nolvia Avina Src: Crow Noriega SpDesc: Ordered: Anaer, Abscess Procedure Result Verified Site Anaerobic Culture Preliminary 02/15/23 NO ANAEROBES ISOLATED ON DAY 2 Anaerobic Culture Preliminary (changed) 02/14/23 NO ANAEROBES ISOLATED ON DAY 1 Abscess Culture Preliminary 02/15/23-1446 DIRECT GRAM STAIN RESULTS: NO ORGANISMS SEEN, NO WHITE CELLS DAY 2, NO GROWTH Abscess Culture Preliminary (changed) 02/14/23-173 DIRECT GRAM STAIN RESULTS: NO ORGANISMS SEEN, NO WHITE CELLS DAY 1, NO GROWTH Abscess Culture Preliminary (changed) 02/13/23-175 DIRECT GRAM STAIN RESULTS: NO ORGANISMS SEEN, NO WHITE CELLS A&P Assessment and plan (1) Septic arthritis of knee, right: 77-year-old male without prior history of trauma presenting with 3 days of sudden onset of knee swelling pain and difficulty with ambulation. Synovial fluid analysis with ~80,000 WBCs, predominantly PMNLs Negative crystal analysis from synovial aspirates taken from ER and OR. Gram stain from aspirate taken in the ER thus far negative, abundant white blood cells noted. Gram stain from OR aspirate with many GPC in pairs, no growth to date D/c Zosyn Continue vancomycin while pending cultures. Blood cultures negative to date. Recommend 6 week course of empiric vancomycin for possible septic arthritis given GPCs on gram stain. Additional molecular testing N/A at our facility at this time. Target trough ~ 15 Okay for picc line to facilitate above Attestations Medical Necessity Statement*: per admitting Coding Level of Care Code Acute Code for [facility] Diagnoses Septic arthritis of knee, right M00.9
--- NOTE | 2023-02-15 14:52 | P.PN_ITS ---
Subjective Subjective: No acute vents overnight. Today morning patient seen sitting up in chair. He states he is feeling better. Denies any nausea vomiting, headache. Complaining of mild soreness in his knee especially on sitting up but states overall he is able to move his knee more. Has remained hemodynamically stable and afebrile. Blood work appreciated to be stable CBC and CMP with mild hyponatremia Medications: Reviewed: Yes Vitals/I&O/Wt Last Vital Signs Temp 98.3 F 02/15/23 12:00 Pulse 57 L 02/15/23 12:00 Resp 18 02/15/23 12:00 BP 109/53 02/15/23 12:00 Pulse Ox 96 02/15/23 12:00 O2 Del Method Room Air 02/15/23 12:00 O2 Flow Rate 6 02/12/23 19:17 02/14/23 02/15/23 02/15/23 22:59 06:59 14:59 Intake Total 780 / 1990 285 / 2275 665 / 665 Output Total 400 / 550 100 / 650 400 / 400 Balance 380 / 1440 185 / 1625 265 / 265 Physical Exam Const: COMMON NORMALS: no acute distress and patient oriented x3 HENMT: COMMON NORMALS: normocephalic HEAD & SCALP: normocephalic Eye: COMMON NORMALS: Equal, round and reactive pupils present and EOMs intact bilaterally PUPIL: Yes Equal, round and reactive pupils present Neck/C-Spine: COMMON NORMALS: no JVD Lymph: LYMPHATIC: no lymphadenopathy noted Resp: COMMON NORMALS: normal respiratory effort, No retractions, No use of accessory muscles and clear to auscultation bilaterally AUSCULTATION: clear to auscultation bilaterally Cardio: COMMON NORMALS: no JVD, regular rate, regular rhythm, S1 normal heart sound present and S2 normal heart sound present RATE: regular rate RHYTHM: regular rhythm HEART SOUNDS: S1 normal heart sound present and S2 normal heart sound present GI: COMMON NORMALS: Normal to inspection, nondistended, normoactive bowel sounds present, Soft to palpation and non-tender PALPATION: Yes Soft to palpation Extremity: COMMON NORMALS: no pedal edema OTHER: Right knee, erythematous, swollen, hot, tender, pain with range of motion Bilateral DP PT pulses palpable Neuro: COMMON NORMALS: patient oriented x3, CN's II-XII intact bilaterally and moves all extremities Psych: COMMON NORMALS: mental status grossly normal Data 02/15/23 04:16 02/15/23 04:16 Micro: Microbiology 02/12/23 10:19 Anaerobic Culture - Preliminary Synovial Fluid Abscess Culture - Preliminary 02/11/23 19:23 Gram Stain - Final Other Source Body Fluid Culture - Final 02/12/23 19:30 Anaerobic Culture - Preliminary Knee - #2 02/12/23 19:30 Gram Stain - Final Knee - #1 Wound Culture - Preliminary A&P Assessment and plan (1) Septic arthritis of knee, right: Underwent arthroscopy on 02/12. Concerns for crystalline arthropathy as per OR note. Gram stain from synovial aspiration so far negative but OR cultures showing gram-positive cocci in pairs. Will await final cultures. MRSA swab not yet collected. Discussed in detail with outpatient pathology at [place] and [place]. As per them sample from synovial aspiration so far negative for crystals because of high crystal burden intraoperatively for now we will start patient on colchicine 0.6 mg twice daily. Awaiting synovial we will crystal results from OR. Check uric acid. Hold off on starting steroids for now. Start on ibuprofen 400 mg 3 times daily. Monitor renal functions. Appreciate orthopedic and ID recommendations. For now continue with empiric vancomycin and Zosyn. Most likely patient would need 4 to 6 weeks of IV antibiotics as per culture results. Weightbearing and PT as per orthopedic team. Plan B12 deficiency: B12 shot 1000 mcg daily for next 3 days. Plan for the day: Crystal study from both the samples seem to be negative. Stop colchicine. Continue Motrin for 1 more day. Continue IV vancomycin and Zosyn. Follow-up cultures. Plan for PICC line placement. Most likely patient can be discharged with IV vancomycin with Vanco trough level between 15-20 for overall 6 weeks. Appreciate ID and orthopedic recommendation. Discussed safe discharge planning in detail with patient. Discussed that patie nt would most likely need multiple things including wound care, physical therapy, IV antibiotics, PICC line care, weekly labs. Recommended patient to have home health. Patient for now seems to be adamant about no home health. He is okay to drive to hospital once a week for PICC line care and lab work. Did discuss with the patient that we will try to arrange everything so that he does not have to have home health but sometimes home health is required for IV antibiotics to be provided at home. Case management alerted. Full code Regular diet Protonix for PUD prophylaxis Heparin 5000 every 12 hourly for DVT prophylaxis postprocedure. Attestations Medical Necessity Statement*: Requires further hospitalization for management of septic arthritis while outpatient antibiotics are sought Coding Level of Care Code Acute Code for [facility] Diagnoses Septic arthritis of knee, right M00.9
--- NOTE | 2023-02-15 16:13 | XRR_ITS ---
PROCEDURE INFORMATION: Exam: XR Chest Exam date and time: 02/15/2023 4:28 PM Age: 77 years old Clinical indication: Device placement; Picc; Additional info: Picc placement TECHNIQUE: Imaging protocol: Radiologic exam of the chest. Views: 1 view. COMPARISON: CT chest carol w/*[id number] 12/12/2016 11:02 AM FINDINGS: Tubes, catheters and devices: There is a left-sided PICC line the whose tip terminates at the cavoatrial junction. Lungs: Unremarkable. No consolidation. Pleural spaces: Unremarkable. No pleural effusion. No pneumothorax. Heart/Mediastinum: Unremarkable. No cardiomegaly. Bones/joints: Unremarkable for age. XR/XR chest 1V portable [id number] IMPRESSION: Interval placement of left-sided PICC line whose tip terminates at the cavoatrial junction.
--- NOTE | 2023-02-15 16:26 | PC.NURSE ---
Consulted by house charge for picc placement. Consent obtained by myself and the patient. All risk and benefits discussed. Risk included dvt and infection. LUE scanned with US and brachial vein was the best option. Vein was straight, 4 mm, and free of visible clot. Pt draped in usual sterile fashion. Using real time US, lidocaine injected. vein accessed, and picc floated into position. Chest xray obtained and waiting on tip confirmation. EBL less then 5 ml. No bleeding no hematoma. Pt arm circumference is 24 cm at 10 cm above the ac fossa.
[2023-02-15 17:25] LABS: Vancomycin Trough 8.4 ug/mL (10-15)
[2023-02-15] MEDS: vancomycin 1,250 MG/250 ML PIGGYBACK 200 MG IV (18:02)
[2023-02-15 19:24] LABS: Methicillin-Resist S.aureu PCR NOT DETECTED (NOT DETECTED)
[2023-02-15] MEDS: pantoprazole 40 mg SDV IVP (21:48)
[2023-02-16] VITALS (8 sets, daily range): BP systolic 95–145; BP diastolic 51–78; PULSE 50–71; RESP 15–18; TEMP 36.6–37; O2SAT 91–96
[2023-02-16] MEDS: piperacillin-tazobactam 3.375 GM in sodium chloride 0.9% (plus) 50 ML IV ×3 (02:12→17:57)
[2023-02-16] MEDS: oxyCODONE 5 mg IR Tab/Cap PO ×2 (02:14→21:47)
[2023-02-16 04:58] LABS: Basophils % 0.4 %; Eosinophils # 0.2 10^3/uL (0.0-0.8); Hematocrit 34.5 % (37-53); Lymphocytes # 1.6 10^3/uL (0.8-4.8); Lymphocytes % 20.3 %; Mean Corpuscular Hemoglobin 30.2 pg (27-33); Mean Corpuscular Volume 91.5 fl (82-101); Mean Platelet Volume 10.5 fL (7.4-10.4); Monocytes # 0.9 10^3/uL (0.2-0.9); Monocytes % 11.4 %; Neutrophils # 5.26 10^3/uL (1.8-7.7); Neutrophils % 65.7 %; Nucleated Red Blood Cells % 0 %; Platelet Count 254 10^3/cmm (157-399); Red Blood Count 3.77 10^6/uL (3.85-5.65); Red Cell Distribution Width 12.9 % (12.1-15.1); White Blood Count 8.01 10^3/uL (3.29-11.43)
[2023-02-16 05:18] LABS: Alanine Aminotransferase 13 U/L (0-41); Albumin Level 2.7 g/dL (3.5-5.2); Alkaline Phosphatase 50 U/L (40-130); Anion Gap 11.6 (5-19); Aspartate Amino Transferase 14 U/L (0-40); Blood Urea Nitrogen 12 mg/dL (8-23); Calcium 7.8 mg/dL (8.5-10.5); Carbon Dioxide 23 mmol/L (22-29); Chloride 101 mmol/L (98-107); Globulin 2.6 g/dL (1.3-4.6); Glucose 106 mg/dL (65-115); Osmolality Calculated 274 mOsm/kg (285-295); Potassium 3.6 mmol/L (3.5-5.1); Sodium 132 mmol/L (136-145); Total Bilirubin 0.5 mg/dL (0.15-1.2); Total Protein 5.3 g/dL (6.6-8.7)
[2023-02-16] MEDS: vancomycin 1,250 MG/250 ML PIGGYBACK 200 MG IV ×2 (05:33→16:59)
[2023-02-16] MEDS: gabapentin 300 mg Capsule PO ×2 (09:09→16:58)
[2023-02-16] MEDS: calcium carb-vit d 600mg/400unit 1 Tablet 1 EACH PO ×2 (09:09→16:58)
[2023-02-16] MEDS: TRAMadol 50 mg Tablet PO ×2 (09:09→16:58)
--- NOTE | 2023-02-16 12:43 | P.DS_ITS ---
Discharge Providers Date of Admission: 02/11/23 21:50 Date of Discharge: February 16, 2023 Attending Provider at Admission: Imtiaz Torres MD Attending Provider at Discharge: Cristi Rhodes MD Primary Care Provider: Jean Bedolla MD Diagnoses at Discharge Discharge Diagnosis (1) Septic arthritis of knee, right: Status: Acute Reason for Visit Reason for Visit: knee pain Brief History: History as per HPI: Wang Martinez is a 77 year old male with a past medical history of GI bleed, gastric ulcer requiring surgery, history of back pain, status post titanium johny placement, who presents to [facility] due to right knee pain, swelling, erythema, tenderness, warmth. Patient denies fever, no chills, no reported trauma, no reported breaks in the skin, no iv drug use, no cat or dog bites, he does report twisiting his knee and ankle a few days ago, no alcohol use, no diabetes Hospital Course Hospital Course Patient was admitted to the hospital further evaluation and management of possible septic arthritis. Orthopedics was consulted and he underwent joint aspiration in the ER after which he was started on broad-spectrum IV antibiotics. Crystal studies from the joint fluid remained negative. Patient underwent joint washout on 02/12. His hospitalization was otherwise unremarkable. Blood culture remain negative. Gram stain from the OR was growing many GPC's in pairs. No formal growth so far. Patient had a PICC line placed on 02/14. He has been discharged in hemodynamically stable condition with home health on IV vancomycin 1.25 mg twice daily for next 6 weeks while his cultures will be followed up as an outpatient. He will have vancomycin trough levels, CRP and creatinine drawn every week with target trough levels between 15-20. He is to follow-up with orthopedics in 2 weeks, his primary care provider within next 10 days and with ID in 3 weeks. Physical Exam Const: COMMON NORMALS: no acute distress and patient oriented x3 HENMT: COMMON NORMALS: normocephalic HEAD & SCALP: normocephalic Eye: COMMON NORMALS: Equal, round and reactive pupils present and EOMs intact bilaterally PUPIL: Yes Equal, round and reactive pupils present Neck/C-Spine: COMMON NORMALS: no JVD Lymph: LYMPHATIC: no lymphadenopathy noted Resp: COMMON NORMALS: normal respiratory effort, No retractions, No use of accessory muscles and clear to auscultation bilaterally AUSCULTATION: clear to auscultation bilaterally Cardio: COMMON NORMALS: no JVD, regular rate, regular rhythm, S1 normal heart sound present and S2 normal heart sound present RATE: regular rate RHYTHM: regular rhythm HEART SOUNDS: S1 normal heart sound present and S2 normal heart sound present GI: COMMON NORMALS: Normal to inspection, nondistended, normoactive bowel sounds present, Soft to palpation and non-tender PALPATION: Yes Soft to palpation Extremity: COMMON NORMALS: no pedal edema OTHER: Right knee, erythematous, swollen, hot, tender, pain with range of motion Bilateral DP PT pulses palpable Neuro: COMMON NORMALS: patient oriented x3, CN's II-XII intact bilaterally and moves all extremities Psych: COMMON NORMALS: mental status grossly normal Discharge Data Studies Completed and Pending Completed Studies During Hospitalization Category Date Time Status CXRP [XR chest 1V portable [id number]] Routine Exams 02/15/23 16:13 Completed ES surgery / GI images Routine Exams 02/12/23 16:15 Completed Pending at discharge Category Date Time Status Abscess Culture Stat Lab 02/12/23 10:19 Results Anaerobic Culture Routine Lab 02/12/23 19:30 Results Anaerobic Culture Stat Lab 02/12/23 10:19 Results Blood Culture Stat Lab 02/11/23 17:10 Results Miscellaneous Test Routine Lab 02/13/23 13:38 Ordered Miscellaneous Test Stat Lab 02/12/23 10:19 Received Radiology Impressions Chest X-Ray 02/15/23 16:13 IMPRESSION: Interval placement of left-sided PICC line whose tip terminates at the cavoatrial junction. Microbiology 02/12/23 10:19 Synovial Fluid Anaerobic Culture - Preliminary 02/12/23 10:19 Synovial Fluid Abscess Culture - Final 02/12/23 19:30 Knee - #1 Gram Stain - Final 02/12/23 19:30 Knee - #1 Wound Culture - Final 02/11/23 19:23 Other Source Gram Stain - Final 02/11/23 19:23 Other Source Body Fluid Culture - Final 02/12/23 19:30 Knee - #2 Anaerobic Culture - Preliminary 02/11/23 17:10 Blood Blood Culture - Preliminary NEGATIVE TO DATE 02/11/23 17:00 Blood Blood Culture - Preliminary NEGATIVE TO DATE Laboratory Results WBC 8.01 10^3/uL (3.29-11.43) 02/16/23 04:13 RBC 3.77 10^6/uL (3.85-5.65) L 02/16/23 04:13 Hgb 11.40 g/dL (11.27-16.99) 02/16/23 04:13 Hct 34.5 % (37-53) L 02/16/23 04:13 MCV 91.5 fl (82-101) 02/16/23 04:13 MCH 30.2 pg (27-33) 02/16/23 04:13 MCHC 33.0 g/dL (30-55) 02/16/23 04:13 RDW 12.9 % (12.1-15.1) 02/16/23 04:13 Plt Count 254 10^3/cmm (157-399) 02/16/23 04:13 MPV 10.5 fL (7.4-10.4) H 02/16/23 04:13 Neut % (Auto) 65.7 % 02/16/23 04:13 Lymph % (Auto) 20.3 % 02/16/23 04:13 [place] % (Auto) 11.4 % 02/16/23 04:13 Eos % (Auto) 2.0 % 02/16/23 04:13 Baso % (Auto) 0.4 % 02/16/23 04:13 Neut # (Auto) 5.26 10^3/uL (1.8-7.7) 02/16/23 04:13 Lymph # (Auto) 1.6 10^3/uL (0.8-4.8) 02/16/23 04:13 [place] # (Auto) 0.9 10^3/uL (0.2-0.9) 02/16/23 04:13 Eos # (Auto) 0.2 10^3/uL (0.0-0.8) 02/16/23 04:13 Baso # (Auto) 0.0 10^3/uL (0.0-0.1) 02/16/23 04:13 Nucleated RBC % (auto) 0 % 02/16/23 04:13 Nucleated RBCs # 0.0 /100WBC 02/16/23 04:13 ESR 11 mm/hr (0-10) H 02/11/23 17:00 Sodium 132 mmol/L (136-145) L 02/16/23 04:13 Potassium 3.6 mmol/L (3.5-5.1) 02/16/23 04:13 Chloride 101 mmol/L (98-107) 02/16/23 04:13 Carbon Dioxide 23 mmol/L (22-29) 02/16/23 04:13 Anion Gap 11.6 (5-19) 02/16/23 04:13 BUN 12 mg/dL (8-23) 02/16/23 04:13 Creatinine 0.7 mg/dL (0.7-1.2) 02/16/23 04:13 GFR Calculation Not Reportable 02/16/23 04:13 Glucose 106 mg/dL (65-115) 02/16/23 04:13 Estimat Average Glucose 114 02/12/23 04:40 Hemoglobin A1c 5.6 % (4.0-6.0) 02/12/23 04:40 Calculated Osmolality 274 mOsm/kg (285-295) L 02/16/23 04:13 Lactic Acid 1.7 mmol/L (0.5-2.2) 02/11/23 17:00 Uric Acid 3.3 mg/dL (3.4-7.0) L 02/13/23 05:04 Calcium 7.8 mg/dL (8.5-10.5) L 02/16/23 04:13 Iron 15 ug/dL (59-158) L 02/12/23 04:40 TIBC 250 mcg/dl 02/12/23 04:40 % Saturation 6.0 % (20-50) L 02/12/23 04:40 Unsat Iron Binding 235 ug/dL (112-347) 02/12/23 04:40 Total Bilirubin 0.5 mg/dL (0.15-1.2) 02/16/23 04:13 AST 14 U/L (0-40) 02/16/23 04:13 ALT 13 U/L (0-41) 02/16/23 04:13 Alkaline Phosphatase 50 U/L (40-130) 02/16/23 04:13 C-Reactive Protein 84.7 mg/L (0.0-4.9) H 02/14/23 04:05 NT-Pro-B Natriuret Pep 882 pg/mL (0-450) H 02/12/23 04:40 Total Protein 5.3 g/dL (6.6-8.7) L 02/16/23 04:13 Albumin 2.7 g/dL (3.5-5.2) L 02/16/23 04:13 Globulin 2.6 g/dL (1.3-4.6) 02/16/23 04:13 Triglycerides 71 mg/dL (0-150) 02/12/23 04:40 Cholesterol 107 mg/dL (0-200) 02/12/23 04:40 LDL Cholesterol, Calc 47 mg/dL (50-129) L 02/12/23 04:40 HDL Cholesterol 46 mg/dL (60-100) L 02/12/23 04:40 LDL/HDL Ratio 1.02 RATIO (0.00-3.22) 02/12/23 04:40 Cholesterol/HDL Ratio 2.33 mg/dL (1.0-5.00) 02/12/23 04:40 Vitamin B12 178 pg/mL (232-1245) L 02/12/23 04:40 Folate 9.7 ng/mL (4.5-32.2) 02/13/23 05:04 Procalcitonin 0.22 ng/mL (0-0.5) 02/12/23 04:40 TSH 0.89 uIU/mL (0.27-4.20) 02/12/23 04:40 Urine Color Yellow (Yellow) 02/14/23 03:51 Urine Appearance Clear (CLEAR) 02/14/23 03:51 Urine pH 6 (5-7) 02/14/23 03:51 Ur Specific [place] 1.015 (1.005-1.030) 02/14/23 03:51 Urine Protein Neg (Negative) 02/14/23 03:51 Urine Glucose (UA) Norm (Normal) 02/14/23 03:51 Urine Ketones Negative (Negative) 02/14/23 03:51 Urine Blood Neg (Negative) 02/14/23 03:51 Urine Nitrate Negative (Negative) 02/14/23 03:51 Urine Bilirubin Neg (Negative) 02/14/23 03:51 Urine Urobilinogen Neg mg/dL (Negative) 02/14/23 03:51 Ur Leukocyte Esterase Negative (Negative) 02/14/23 03:51 Fluid Crystals Sent to pathology 02/12/23 19:30 Fluid Uric Acid 4 mg/dL 02/11/23 19: Synovial Color Red (PALE YELLOW) 02/11/23 19: Synovial Appearance Cloudy (CLEAR) 02/11/23 19: Synovial WBC 55824 /uL (0-150) H 02/11/23 19: Synovial RBC 102 10^3/uL (0-0) H 02/11/23 19: Synovial Mononuclear 4.957 10^3/uL 02/11/23 19:23 Synov Polynuclear WBCs 87.595 10^3/uL 02/11/23 19: Synovial Other Cells Not Reportable 02/11/23 19: Synovial Polynuclear % 94.700 % 02/11/23 19: Synovial Mononuclear % 5.300 % 02/11/23 19: Vancomycin Trough 8.4 ug/mL (10-15) L 02/15/23 16:55 Urine Opiates Screen Positive ng/mL (Negative) H 02/14/23 03:51 Ur Barbiturates Screen Negative ng/mL (Negative) 02/14/23 03:51 Ur Phencyclidine Scrn Negative ng/mL (Negative) 02/14/23 03:51 Ur Amphetamines Screen Negative ng/mL (Negative) 02/14/23 03:51 U Benzodiazepines Scrn Negative ng/mL (Negative) 02/14/23 03:51 Urine Cocaine Screen Negative ng/mL (Negative) 02/14/23 03:51 U Marijuana (THC) Screen Negative ng/mL (Negative) 02/14/23 03:51 MRSA (PCR) Not detected (NOT DETECTED) 02/12/23 10:20 Path Cons w/Slide Yes 02/11/23 19: Vitals Last Vital Signs Temp 98.5 F 02/16/23 07:51 Pulse 71 02/16/23 12:00 Resp 18 02/16/23 12:00 BP 145/78 02/16/23 12:00 Pulse Ox 95 02/16/23 12:00 O2 Del Method Room Air 02/16/23 12:00 O2 Flow Rate 6 02/12/23 19:17 Discharge Plan Discharge Patient Disposition: Home Condition: Stable Prescriptions: New oxycodone 5 mg tablet 5 mg PO Q6H PRN (Reason: pain postop) 7 Days Qty: 28 0RF aspirin 81 mg tablet,delayed release (DR/EC) 81 mg PO DAILY 14 Days Qty: 14 0RF Continued gabapentin 300 mg capsule See Rx Instructions .ROUTE .COMPLEX Qty: 60 11RF Dose Instruction: Take 1 capsule by mouth twice daily Rx Instructions: Take 1 capsule by mouth twice daily albuterol sulfate 90 mcg/actuation HFA aerosol inhaler See Rx Instructions .ROUTE .COMPLEX Qty: 18 11RF Dose Instruction: INHALE 2 PUFFS BY MOUTH EVERY 4 HOURS DIRECTED NEEDED Rx Instructions: INHALE 2 PUFFS BY MOUTH EVERY 4 HOURS DIRECTED NEEDED fluticasone propion-salmeterol 500-50 mcg/dose blister with device See Rx Instructions .ROUTE .COMPLEX Qty: 60 11RF Dose Instruction: INHALE 1 DOSE BY MOUTH TWICE DAILY Rx Instructions: INHALE 1 DOSE BY MOUTH TWICE DAILY pantoprazole 40 mg tablet,delayed release (DR/EC) See Rx Instructions .ROUTE .COMPLEX Qty: 30 11RF Dose Instruction: Take 1 tablet by mouth once daily Rx Instructions: Take 1 tablet by mouth once daily tramadol 50 mg tablet 50 mg PO Q6H PRN (Reason: pain) Qty: 120 5RF acetaminophen 325 mg Tablet 650 mg PO QAM Discharge Orders: Discharge Order (Routine); Ordered 02/16/23 Ordered By: Cristi Rhodes Referrals: Lidia Chong MD [Hospitalist] - 3 weeks (We have notified your physician's clinic of the need for a follow-up appointment to be scheduled. If you have not heard from them within the next 2 business days, please call them directly. You may also reach out to our manager of security at [phone] and she can assist you.) Abhi Zuniga DO [Physician] - 2 weeks (We have notified your physician's clinic of the need for a follow-up appointment to be scheduled. If you have not heard from them within the next 2 business days, please call them directly. You may also reach out to our manager of security at [phone] and she can assist you.) Jean Bedolla MD [Primary Care Provider] - 7-10 days (Patient referred to home health services. ) Discharge Diet: Advance as tolerated Discharge Activity: Increase activity as tolerated Patient Instructions: Aspirin (By mouth), Oxycodone, Rapid Release (By mouth), Opioid Safety Activity Restrictions/Additional Instructions: Orthopedic discharge instructions: Patient should change dressing to the right lower extremity as needed. Otherwise keep incisions covered and clean dry and intact no baths showers or soaks Ice and elevate as needed for pain and swelling Encourage knee range of motion as tolerated Take antibiotic as prescribed per primary Take aspirin 81 mg as prescribed for blood clot prevention Take pain medication as prescribed Patient may weight-bear as tolerated to the operative extremity Patient to follow-up in the orthopedic office in 2 weeks Contact the office for any questions or concerns Vancomycin 1.25 grams twice daily for next 6 weeks. Trough to be maintained between 15-20. Repeat trough level in a.m. Weekly Vanco trough, CRP's, creatinine. PICC line should be removed after completion of IV course. Weekly PICC line dressings. Discharge Attestations Time Spent in Discharge Care*: greater than 30 min Specific Discharge Activities: educating patient, educating and/or supporting family/caregiver, discussing with pcp/other providers, discussing with high risk case manager/social workers/dc planners, documenting/other paperwork and evaluating patient/reviewing data Status at Discharge: Cognitive status at discharge: cognitively intact , Behavioral status at discharge: cooperative , Functional status at discharge: uses cane/walker , Overall status at discharge: patient is progressing back to baseline Quality Metrics Clinical Quality Measures [ No reported AMI, CVA or VTE this stay] Coding Level of Care Code 20954 Total time (in minutes) for Discharge: 60 Diagnoses Septic arthritis of knee, right M00.9
--- NOTE | 2023-02-16 15:12 | P.PN_ITS ---
Subjective Subjective: Infectious disease progress note. Remains afebrile and hemodynamically stable. No crystals noted. cx from 02/12 marked as WC (swab from joint) reporetd with many tiny gram positive cocci in pairs, reported as scant normal skin rosi. Medications: Reviewed: Yes Vitals/I&O/Wt Last Vital Signs Temp 98.5 F 02/16/23 07:51 Pulse 71 02/16/23 12:00 Resp 18 02/16/23 12:00 BP 145/78 02/16/23 12:00 Pulse Ox 95 02/16/23 12:00 O2 Del Method Room Air 02/16/23 12:00 02/16/23 02/16/23 02/16/23 06:59 14:59 22:59 Intake Total 50 / 1255 780 / 780 Output Total 375 / 1175 100 / 100 Balance -325 / 80 680 / 680 Physical Exam Narrative: General: No acute distress, AO x3 HEENT: PERRLA, pupils bilaterally equal and reactive, pallors not present Chest: Normal vesicular breath sounds, no added sounds, equal good air entry bilaterally CVS: S1-S2 regular, no murmurs, no tachycardia, no gallops, no rubs Abdomen: Soft, nontender, no organomegaly, bowel sounds present Neuro: No focal deficits, no facial deformity, AO x3, power 5/5 in all limbs Data 02/16/23 04:13 02/16/23 04:13 Micro: Microbiology 02/12/23 10:19 Anaerobic Culture - Preliminary Synovial Fluid Abscess Culture - Final Anaerobic Culture Preliminary 02/15/23-1028 NO ANAEROBES ISOLATED ON DAY 2 Anaerobic Culture Preliminary (changed) 02/14/23-0954 NO ANAEROBES ISOLATED ON DAY 1 Abscess Culture Final 02/16/23-1326 DIRECT GRAM STAIN RESULTS: NO ORGANISMS SEEN, NO WHITE CELLS NO GROWTH ON DAY 3 Abscess Culture Preliminary (changed) 02/15/23-1446 DIRECT GRAM STAIN RESULTS: NO ORGANISMS SEEN, NO WHITE CELLS DAY 2, NO GROWTH Abscess Culture Preliminary (changed) 02/14/23-1737 DIRECT GRAM STAIN RESULTS: NO ORGANISMS SEEN, NO WHITE CELLS DAY 1, NO GROWTH Abscess Culture Preliminary (changed) 02/13/23-1754 DIRECT GRAM STAIN RESULTS: NO ORGANISMS SEEN, NO WHITE CELLS 02/12/23 19:30 Gram Stain - Final Knee - #1 Wound Culture - Final (swab) Procedure Result Verified Site Gram Stain Final 02/13/23-1204 Result MANY TINY GRAM POSITIVE COCCI IN PAIRS NO WHITE BLOOD CELLS Wound Culture Final 02/15/23-1519 SCANT NORMAL SKIN ROSI PRESENT ON DAY 3 Wound Culture Preliminary (changed) 02/14/23-1725 NO GROWTH AFTER 2 DAYS Wound Culture Preliminary (changed) 02/13/23-1708 NO GROWTH AFTER 1 DAY 02/11/23 19:23 Gram Stain - Final Other Source Body Fluid Culture - Final Gram Stain Final 02/12/23-1034 Result MANY POLYMORPHONUCLEAR NEUTROPHILS MANY WHITE BLOOD CELLS NO ORGANISMS SEEN Body Fluid Culture Final 02/15/23-1433 NO GROWTH AFTER 3 DAYS Body Fluid Culture Preliminary (changed) 02/14/23-1658 NO GROWTH AFTER 2 DAYS Body Fluid Culture Preliminary (changed) 02/13/23-1359 NO GROWTH AFTER 1 DAY 02/12/23 19:30 Anaerobic Culture - Preliminary Knee - #2 Anaerobic Culture Preliminary 02/15/23-1028 NO ANAEROBES ISOLATED ON DAY 2 Anaerobic Culture Preliminary (changed) 02/14/23-1000 NO ANAEROBES ISOLATED ON DAY 1 February 11, 2023: Blood culture negative to date. A&P Assessment and plan (1) Septic arthritis of knee, right: 77-year-old male without prior history of trauma presenting with 3 days of sudden onset of knee swelling pain and difficulty with ambulation. Synovial fluid analysis with 92,000 WBCs, predominantly PMNLs (87%) Negative crystal analysis from synovial aspirates taken from ER and OR. Gram stain from aspirate taken in the ER thus far negative, abundant white blood cells noted. Gram stain from OR aspirate with many GPC in pairs, appears to have been identified as skin rosi. Called to discuss with micro lab that if there is any growth with the plate it needs to be evaluated further. Specimen appears to be a swab that has been taken from the knee, no markers of wound culture is actually a deep synovial swab from the operating room. Uncertain if at this point the plates with growth are still available as the culture has been marked as final on February 15. Micro lab to look into this and if available will place colony in micro scan for an identification. Also requested to be recultured from broth If it appears that the plates with colony growth are no longer available, requested to send out synovial fluid aspirate from the OR for [facility] molecular testing. This will need to be coordinated with [facility] as [facility] does not perform this test directly from the synovial aspirate. In the interim patient is eager to return home. Given gram-positive cocci noted on Gram stain, we will choose an empiric antibiotic coverage with vancomycin while pending cultures and molecular testing. Recommend 6 week course (02/12-03/26) of empiric vancomycin for possible septic arthritis. Target trough ~ 15 While on the above antibiotic course recommend to obtain weekly vancomycin trough levels, weekly creatinine and weekly CRP and fax it to infectious disease clinic for review. Infusion pharmacist to assist with vancomycin dosing based on troughs. He has a PICC line in place to facilitate above. Follow-up in ID clinic in 1 month. ID to sign off. Please call with any questions or concerns or clinical change.. Attestations Medical Necessity Statement*: Per admitting Coding Level of Care Code Acute Code for [facility] Fwd Diagnoses Septic arthritis of knee, right M00.9
[2023-02-16] MEDS: acetaminophen 325 mg Tablet 650 MG PO (19:28)
[2023-02-16] MEDS: pantoprazole 40 mg SDV IVP (22:27)
[2023-02-17] MEDS: piperacillin-tazobactam 3.375 GM in sodium chloride 0.9% (plus) 50 ML IV ×2 (01:48→11:16)
[2023-02-17 03:45] VITALS: BP 111/72; PULSE 60; RESP 17; TEMP 37; O2SAT 91
[2023-02-17 05:16] LABS: Vancomycin Trough 11.2 ug/mL (10-15)
[2023-02-17] MEDS: vancomycin 1,250 MG/250 ML PIGGYBACK 200 MG IV ×2 (05:34→17:04)
[2023-02-17 07:20] VITALS: BP 118/59; PULSE 51; RESP 18; TEMP 37.1; O2SAT 93
[2023-02-17] MEDS: calcium carb-vit d 600mg/400unit 1 Tablet 1 EACH PO ×2 (08:19→17:05)
[2023-02-17] MEDS: gabapentin 300 mg Capsule PO ×2 (08:19→17:05)
[2023-02-17 11:12] VITALS: BP 122/54; PULSE 59; RESP 18; TEMP 36.8; O2SAT 94
--- NOTE | 2023-02-17 12:18 | PC.SOCIAL ---
IMM Update pg 2 of IMM updated and reviewed w/ patient. Copy provided and copy in chart dated, and initialed.
[2023-02-17 13:11] VITALS: PULSE 59; RESP 18; O2SAT 94
--- NOTE | 2023-02-17 14:19 | P.DS_ITS ---
Discharge Providers Date of Admission: 02/11/23 21:50 Date of Discharge: February 17, 2023 Attending Provider at Admission: Imtiaz Torres MD Attending Provider at Discharge: Napoleon Doe Primary Care Provider: Jean Bedolla MD Diagnoses at Discharge Discharge Diagnosis (1) Septic arthritis of knee, right: Status: Acute Reason for Visit Reason for Visit: knee pain Hospital Course Hospital Course Patient was admitted to the hospital further evaluation and management of possible septic arthritis. Orthopedics was consulted and he underwent joint aspiration in the ER after which he was started on broad-spectrum IV antibiotics. Crystal studies from the joint fluid remained negative. Patient underwent joint washout on 02/12. His hospitalization was otherwise unremarkable. Blood culture remain negative. Gram stain from the OR was [facility] many GPC's in pairs. No formal growth so far. Patient had a PICC line placed on 02/14. He has been discharged in hemodynamically stable condition with home health on IV vancomycin 1.25 mg twice daily for next 6 weeks while his cultures will be followed up as an outpatient. He will have vancomycin trough levels, CRP and creatinine drawn every week with target trough levels between 15-20. He is to follow-up with orthopedics in 2 weeks, his primary care provider within next 10 days and with ID in 3 weeks. Physical Exam Const: COMMON NORMALS: patient oriented x3 and alert GENERAL APPEARANCE: cooperative ORIENTATION/CONSCIOUSNESS: Yes awake HENMT: COMMON NORMALS: oropharynx normal Neck/C-Spine: COMMON NORMALS: no JVD Resp: COMMON NORMALS: normal respiratory effort and clear to auscultation bilaterally AUSCULTATION: clear to auscultation bilaterally Cardio: COMMON NORMALS: no JVD, regular rhythm, S1 normal heart sound present, S2 normal heart sound present and No murmurs present (Cardio) RHYTHM: regular rhythm HEART SOUNDS: S1 normal heart sound present and S2 normal heart sound present GI: COMMON NORMALS: Normal to inspection, nondistended, normoactive bowel sounds present, Soft to palpation and non-tender PALPATION: Yes Soft to palpation Extremity: COMMON NORMALS: no joint enlargement and no pedal edema OTHER: R knee dressing. No surrounding swelling, erythema. Leg perfused. Neuro: COMMON NORMALS: patient oriented x3 and moves all extremities SENSORIUM/ORIENTATION: Yes alert Skin: COMMON NORMALS: no rashes or lesions noted GENERAL SKIN EXAM: no rashes or lesions noted Discharge Data Studies Completed and Pending Completed Studies During Hospitalization Category Date Time Status CXRP [XR chest 1V portable [id number]] Routine Exams 02/15/23 16:13 Completed ES surgery / GI images Routine Exams 02/12/23 16:15 Completed Pending at discharge Category Date Time Status Abscess Culture Stat Lab 02/12/23 10:19 Results Anaerobic Culture Routine Lab 02/12/23 19:30 Results Anaerobic Culture Stat Lab 02/12/23 10:19 Results Miscellaneous Test Routine Lab 02/13/23 13:38 Ordered Miscellaneous Test Stat Lab 02/12/23 10:19 Received Wound Culture and Gram Stain Routine Lab 02/12/23 19:30 Results Radiology Impressions Chest X-Ray 02/15/23 16:13 IMPRESSION: Interval placement of left-sided PICC line whose tip terminates at the cavoatrial junction. Laboratory Results WBC 8.01 10^3/uL (3.29-11.43) 02/16/23 04:13 RBC 3.77 10^6/uL (3.85-5.65) L 02/16/23 04:13 Hgb 11.40 g/dL (11.27-16.99) 02/16/23 04:13 Hct 34.5 % (37-53) L 02/16/23 04:13 MCV 91.5 fl (82-101) 02/16/23 04:13 MCH 30.2 pg (27-33) 02/16/23 04:13 MCHC 33.0 g/dL (30-55) 02/16/23 04:13 RDW 12.9 % (12.1-15.1) 02/16/23 04:13 Plt Count 254 10^3/cmm (157-399) 02/16/23 04:13 MPV 10.5 fL (7.4-10.4) H 02/16/23 04:13 Neut % (Auto) 65.7 % 02/16/23 04:13 Lymph % (Auto) 20.3 % 02/16/23 04:13 Young % (Auto) 11.4 % 02/16/23 04:13 Eos % (Auto) 2.0 % 02/16/23 04:13 Baso % (Auto) 0.4 % 02/16/23 04:13 Neut # (Auto) 5.26 10^3/uL (1.8-7.7) 02/16/23 04:13 Lymph # (Auto) 1.6 10^3/uL (0.8-4.8) 02/16/23 04:13 Young # (Auto) 0.9 10^3/uL (0.2-0.9) 02/16/23 04:13 Eos # (Auto) 0.2 10^3/uL (0.0-0.8) 02/16/23 04:13 Baso # (Auto) 0.0 10^3/uL (0.0-0.1) 02/16/23 04:13 Nucleated RBC % (auto) 0 % 02/16/23 04:13 Nucleated RBCs # 0.0 /100WBC 02/16/23 04:13 ESR 11 mm/hr (0-10) H 02/11/23 17:00 Sodium 132 mmol/L (136-145) L 02/16/23 04:13 Potassium 3.6 mmol/L (3.5-5.1) 02/16/23 04:13 Chloride 101 mmol/L (98-107) 02/16/23 04:13 Carbon Dioxide 23 mmol/L (22-29) 02/16/23 04:13 Anion Gap 11.6 (5-19) 02/16/23 04:13 BUN 12 mg/dL (8-23) 02/16/23 04:13 Creatinine 0.7 mg/dL (0.7-1.2) 02/16/23 04:13 GFR Calculation Not Reportable 02/16/23 04:13 Glucose 106 mg/dL (65-115) 02/16/23 04:13 Estimat Average Glucose 114 02/12/23 04:40 Hemoglobin A1c 5.6 % (4.0-6.0) 02/12/23 04:40 Calculated Osmolality 274 mOsm/kg (285-295) L 02/16/23 04:13 Lactic Acid 1.7 mmol/L (0.5-2.2) 02/11/23 17:00 Uric Acid 3.3 mg/dL (3.4-7.0) L 02/13/23 05:04 Calcium 7.8 mg/dL (8.5-10.5) L 02/16/23 04:13 Iron 15 ug/dL (59-158) L 02/12/23 04:40 TIBC 250 mcg/dl 02/12/23 04:40 % Saturation 6.0 % (20-50) L 02/12/23 04:40 Unsat Iron Binding 235 ug/dL (112-347) 02/12/23 04:40 Total Bilirubin 0.5 mg/dL (0.15-1.2) 02/16/23 04:13 AST 14 U/L (0-40) 02/16/23 04:13 ALT 13 U/L (0-41) 02/16/23 04:13 Alkaline Phosphatase 50 U/L (40-130) 02/16/23 04:13 C-Reactive Protein 84.7 mg/L (0.0-4.9) H 02/14/23 04:05 NT-Pro-B Natriuret Pep 882 pg/mL (0-450) H 02/12/23 04:40 Total Protein 5.3 g/dL (6.6-8.7) L 02/16/23 04:13 Albumin 2.7 g/dL (3.5-5.2) L 02/16/23 04:13 Globulin 2.6 g/dL (1.3-4.6) 02/16/23 04:13 Triglycerides 71 mg/dL (0-150) 02/12/23 04:40 Cholesterol 107 mg/dL (0-200) 02/12/23 04:40 LDL Cholesterol, Calc 47 mg/dL (50-129) L 02/12/23 04:40 HDL Cholesterol 46 mg/dL (60-100) L 02/12/23 04:40 LDL/HDL Ratio 1.02 RATIO (0.00-3.22) 02/12/23 04:40 Cholesterol/HDL Ratio 2.33 mg/dL (1.0-5.00) 02/12/23 04:40 Vitamin B12 178 pg/mL (232-1245) L 02/12/23 04:40 Folate 9.7 ng/mL (4.5-32.2) 02/13/23 05:04 Procalcitonin 0.22 ng/mL (0-0.5) 02/12/23 04:40 TSH 0.89 uIU/mL (0.27-4.20) 02/12/23 04:40 Urine Color Yellow (Yellow) 02/14/23 03:51 Urine Appearance Clear (CLEAR) 02/14/23 03:51 Urine pH 6 (5-7) 02/14/23 03:51 Ur Specific Sod 1.015 (1.005-1.030) 02/14/23 03:51 Urine Protein Neg (Negative) 02/14/23 03:51 Urine Glucose (UA) Norm (Normal) 02/14/23 03:51 Urine Ketones Negative (Negative) 02/14/23 03:51 Urine Blood Neg (Negative) 02/14/23 03:51 Urine Nitrate Negative (Negative) 02/14/23 03:51 Urine Bilirubin Neg (Negative) 02/14/23 03:51 Urine Urobilinogen Neg mg/dL (Negative) 02/14/23 03:51 Ur Leukocyte Esterase Negative (Negative) 02/14/23 03:51 Fluid Crystals Sent to pathology 02/12/23 19:30 Fluid Uric Acid 4 mg/dL 02/11/23 19:23 Synovial Color Red (PALE YELLOW) 02/11/23 19:23 Synovial Appearance Cloudy (CLEAR) 02/11/23 19:23 Synovial WBC 63642 /uL (0-150) H 02/11/23 19:23 Synovial RBC 102 10^3/uL (0-0) H 02/11/23 19:23 Synovial Mononuclear 4.957 10^3/uL 02/11/23 19:23 Synov Polynuclear WBCs 87.595 10^3/uL 02/11/23 19:23 Synovial Other Cells Not Reportable 02/11/23 19:23 Synovial Polynuclear % 94.700 % 02/11/23 19:23 Synovial Mononuclear % 5.300 % 02/11/23 19:23 Vancomycin Trough 11.2 ug/mL (10-15) 02/17/23 04:52 Urine Opiates Screen Positive ng/mL (Negative) H 02/14/23 03:51 Ur Barbiturates Screen Negative ng/mL (Negative) 02/14/23 03:51 Ur Phencyclidine Scrn Negative ng/mL (Negative) 02/14/23 03:51 Ur Amphetamines Screen Negative ng/mL (Negative) 02/14/23 03:51 U Benzodiazepines Scrn Negative ng/mL (Negative) 02/14/23 03:51 Urine Cocaine Screen Negative ng/mL (Negative) 02/14/23 03:51 U Marijuana (THC) Screen Negative ng/mL (Negative) 02/14/23 03:51 MRSA (PCR) Not detected (NOT DETECTED) 02/12/23 10:20 Path Cons w/Slide Yes 02/11/23 19:23 Vitals Last Vital Signs Temp 98.3 F 02/17/23 11:12 Pulse 59 L 02/17/23 13:11 Resp 18 02/17/23 13:11 BP 122/54 02/17/23 11:12 Pulse Ox 94 02/17/23 13:11 O2 Del Method Room Air 02/17/23 13:11 O2 Flow Rate 6 02/12/23 19:17 Discharge Plan Discharge Patient Disposition: Home Condition: Stable Prescriptions: New oxycodone 5 mg tablet 5 mg PO Q6H PRN (Reason: pain postop) 7 Days Qty: 28 0RF aspirin 81 mg tablet,delayed release (DR/EC) 81 mg PO DAILY 14 Days Qty: 14 0RF vancomycin-diluent combo no.1 1.25 gram/250 mL Piggyback 1,250 mg continuous IV infusion Q12H Qty: 08827 0RF Continued gabapentin 300 mg capsule See Rx Instructions .ROUTE .COMPLEX Qty: 60 11RF Dose Instruction: Take 1 capsule by mouth twice daily Rx Instructions: Take 1 capsule by mouth twice daily albuterol sulfate 90 mcg/actuation HFA aerosol inhaler See Rx Instructions .ROUTE .COMPLEX Qty: 18 11RF Dose Instruction: INHALE 2 PUFFS BY MOUTH EVERY 4 HOURS DIRECTED NEEDED Rx Instructions: INHALE 2 PUFFS BY MOUTH EVERY 4 HOURS DIRECTED NEEDED fluticasone propion-salmeterol 500-50 mcg/dose blister with device See Rx Instructions .ROUTE .COMPLEX Qty: 60 11RF Dose Instruction: INHALE 1 DOSE BY MOUTH TWICE DAILY Rx Instructions: INHALE 1 DOSE BY MOUTH TWICE DAILY pantoprazole 40 mg tablet,delayed release (DR/EC) See Rx Instructions .ROUTE .COMPLEX Qty: 30 11RF Dose Instruction: Take 1 tablet by mouth once daily Rx Instructions: Take 1 tablet by mouth once daily tramadol 50 mg tablet 50 mg PO Q6H PRN (Reason: pain) Qty: 120 5RF acetaminophen 325 mg Tablet 650 mg PO QAM Discharge Orders: Discharge Order (Routine); Ordered 02/16/23 Ordered By: Cristi Rhodes Referrals: Lidia Chong MD [Hospitalist] - 03/06/23 11:30 am Abhi Zuniga DO [Physician] - 2 weeks (We have notified your physician's clinic of the need for a follow-up appointment to be scheduled. If you have not heard from them within the next 2 business days, please call them directly. You may also reach out to our data warehousing manager at [phone] and she can assist you.) Jean Bedolla MD [Primary Care Provider] - 7-10 days (Patient referred to home health services. ) Discharge Diet: Advance as tolerated Discharge Activity: Increase activity as tolerated Patient Instructions: Septic Arthritis - Bacterial, Aspirin (By mouth), Oxycodone, Rapid Release (By mouth), Vancomycin (By injection), Debridement (DC), Knee Arthroscopy (DC), Opioid Safety Activity Restrictions/Additional Instructions: Orthopedic discharge instructions: Patient should change dressing to the right lower extremity as needed. Otherwise keep incisions covered and clean dry and intact no baths showers or soaks Ice and elevate as needed for pain and swelling Encourage knee range of motion as tolerated Take antibiotic as prescribed per primary Take aspirin 81 mg as prescribed for blood clot prevention Take pain medication as prescribed Patient may weight-bear as tolerated to the operative extremity Patient to follow-up in the orthopedic office in 2 weeks Contact the office for any questions or concerns Vancomycin 1.25 grams twice daily for next 6 weeks. Trough to be maintained between 15-20. Repeat trough level in a.m. Weekly Vanco trough, CRP's, creatinine. PICC line should be removed after completion of IV course. Weekly PICC line dressings. Discharge Attestations Time Spent in Discharge Care*: greater than 30 min Status at Discharge: Cognitive status at discharge: cognitively intact , Behavioral status at discharge: cooperative , Functional status at discharge: uses cane/walker , Overall status at discharge: patient is progressing back to baseline Quality Metrics Clinical Quality Measures [ No reported AMI, CVA or VTE this stay] Coding Level of Care Code 07654 Total time (in minutes) for Discharge: 45 Diagnoses Septic arthritis of knee, right M00.9
[2023-02-17 15:32] VITALS: BP 120/63; PULSE 51; RESP 18; TEMP 36.9; O2SAT 94
[2023-02-17 19:17] VITALS: BP 120/63; PULSE 51; RESP 18; TEMP 36.9; O2SAT 94
--- NOTE | 2023-02-17 19:17 | PC.NURSE ---
patient and verbalized understanding of discharge instructions, home medications, iv abx, and follow up appointments.
[2023-04-02 11:08] LABS: Miscellaneous Test See Scanned Lab Rpt
== END 2023-02-17 19:17 | disposition home health service (06) | DRG 486 ==
LOC: ER 20:12 → MEDSURG 21:50
PROVIDERS: Emergency Medicine; Student in an Organized Health Care Education/Training Program; Admitting Provider Family Medicine; Emergency Provider Physician Assistant; PCP Family Medicine; Visit Provider Internal Medicine
PROC: 0SBC4ZZ Excision of Right Knee Joint, Percutaneous Endoscopic Approach (ICD-10-PCS; principal; 2023-02-12 14:30)
PROC: 0SBC4ZZ Excision of Right Knee Joint, Percutaneous Endoscopic Approach (ICD-10-PCS; CPT 29870; 2023-02-12 14:30)
PROC: 0SBC4ZZ Excision of Right Knee Joint, Percutaneous Endoscopic Approach (ICD-10-PCS; CPT 27310; 2023-02-12 14:30)
DX: M00.061 Staphylococcal arthritis, right knee (principal); E87.1 Hypo-osmolality and hyponatremia; B95.8 Unspecified staphylococcus as the cause of diseases classified elsewhere; Z79.891 Long term (current) use of opiate analgesic; F17.200 Nicotine dependence, unspecified, uncomplicated; M54.9 Dorsalgia, unspecified; E53.8 Deficiency of other specified B group vitamins; M94.261 Chondromalacia, right knee; S83.241A Other tear of medial meniscus, current injury, right knee, initial encounter; X58.XXXA Exposure to other specified factors, initial encounter
CPT/HCPCS: 20610; 36415; 36573; 36592; 71045; 73562; 80048; 80053; 80061; 80202; 80306; 80503; 81003; 82607; 82746; 83036; 83540; 83550; 83605; 83880; 84145; 84443; 84550; 84560; 85025; 85651; 86140; 87040; 87070; 87075; 87077; 87186; 87205; 87641; 89050; 96365; 96367; 96372; 96375; 97110; 97165; 99285; C9113; J0131; J0690; J1100; J1170; J2270; J2405; J2543; J2704; J3010; J3370; J3420; J3490; J7030; J7050

== ENCOUNTER 2023-02-20 09:36 | Outpatient (CLI) | payer MEDICARE, SELFPAY ==
[2023-02-20 10:16] LABS: Vancomycin Trough 13.9 ug/mL (10-15)
== END 2023-02-20 09:37 | disposition home or self-care (01) ==
PROVIDERS: PCP Family Medicine; Visit Provider Student in an Organized Health Care Education/Training Program
DX: Z45.2 Encounter for adjustment and management of vascular access device (principal)
CPT/HCPCS: 80202

== ENCOUNTER 2023-02-24 08:00 | Outpatient (CLI) | payer MEDICARE, SELFPAY ==
[2023-02-24 11:44] LABS: C Reactive Protein 6.9 mg/L (0.0-4.9); Vancomycin Trough 16.2 ug/mL (10-15)
== END 2023-02-24 08:01 | disposition home or self-care (01) ==
LOC: LAB 07-01 08:01
PROVIDERS: PCP Family Medicine; Visit Provider Student in an Organized Health Care Education/Training Program
DX: Z45.2 Encounter for adjustment and management of vascular access device (principal)
CPT/HCPCS: 80202; 82565; 86140

== ENCOUNTER → 2023-02-28 10:29 | Outpatient (BNVA) | payer MEDICARE, SELFPAY | PROVIDERS: PCP Family Medicine; Visit Provider Physician Assistant | DX: Z98.890 Other specified postprocedural states | CPT/HCPCS: 73562; 99024 ==

== ENCOUNTER → 2023-03-03 10:51 | Day surgery (SDC) | payer MEDICARE, SELFPAY ==
[2023-03-03] MEDS: alteplase 1 mg/mL SDV 2 mL 2 MG INTRACATH (11:00)
[2023-03-03 11:11] VITALS: BP 163/72; PULSE 90; RESP 18; TEMP 35.9; O2SAT 97
--- NOTE | 2023-03-03 11:40 | PC.NURSE ---
Referred to GI lab from Dr. Chong's office for issues with PICC line. Home health unable to get blood return. PICC nurse to evaluate line, use TPA per protocol, and to replace line if needed. TPA administered per protocol. After 30 minutes of dwell, blood return evident. 10 mL blood wasted. Labs drawn for Home Health nurse as requested. Report called to Salomon at [facility] and Dr. Chong's nurse, Grace, shawn. Line flushed with 20 mL saline without difficulty. Pt tolerated well.
== END ==
PROVIDERS: PCP Family Medicine; Visit Provider Student in an Organized Health Care Education/Training Program
DX: T82.594A Other mechanical complication of infusion catheter, initial encounter (principal); Y99.9 Unspecified external cause status
CPT/HCPCS: 36592; 36593; J2997

== ENCOUNTER 2023-03-03 15:22 | Outpatient (CLI) | payer MEDICARE, SELFPAY ==
[2023-03-03 12:08] LABS: C Reactive Protein 13.9 mg/L (0.0-4.9)
== END 2023-03-03 15:23 | disposition home or self-care (01) ==
LOC: LAB 15:22
PROVIDERS: PCP Family Medicine; Visit Provider Student in an Organized Health Care Education/Training Program
DX: Z45.2 Encounter for adjustment and management of vascular access device (principal)
CPT/HCPCS: 80202; 82565; 86140

== ENCOUNTER 2023-03-05 10:53 | Outpatient (CLI) | payer MEDICARE, SELFPAY ==
[2023-03-05 11:27] LABS: Vancomycin Trough 16.7 ug/mL (10-15)
[2023-03-05 11:48] LABS: C Reactive Protein 4.5 mg/L (0.0-4.9)
== END 2023-03-05 10:54 | disposition home or self-care (01) ==
PROVIDERS: PCP Family Medicine; Visit Provider Student in an Organized Health Care Education/Training Program
DX: Z45.2 Encounter for adjustment and management of vascular access device (principal)
CPT/HCPCS: 80202; 82565; 86140

== ENCOUNTER 2023-03-10 10:01 | Outpatient (CLI) | payer MEDICARE, SELFPAY ==
[2023-03-10 10:39] LABS: C Reactive Protein 6.7 mg/L (0.0-4.9); Vancomycin Trough 17.8 ug/mL (10-15)
== END 2023-03-10 10:02 | disposition home or self-care (01) ==
LOC: LAB 10:03
PROVIDERS: PCP Family Medicine; Visit Provider Student in an Organized Health Care Education/Training Program
DX: Z45.2 Encounter for adjustment and management of vascular access device (principal)
CPT/HCPCS: 80202; 82565; 86140

== ENCOUNTER 2023-03-13 19:10 | Outpatient (CLI) | payer MEDICARE, SELFPAY ==
[2023-03-13 10:07] LABS: C Reactive Protein 20.7 mg/L (0.0-4.9); Vancomycin Trough 16.2 ug/mL (10-15)
== END 2023-03-13 19:11 | disposition home or self-care (01) ==
LOC: LAB 03-14 19:10
PROVIDERS: PCP Family Medicine; Visit Provider Student in an Organized Health Care Education/Training Program
DX: Z45.2 Encounter for adjustment and management of vascular access device (principal)
CPT/HCPCS: 80202; 82565; 86140

== ENCOUNTER 2023-03-18 11:56 | Outpatient (CLI) | payer MEDICARE, SELFPAY ==
[2023-03-18 12:28] LABS: Vancomycin Trough 14.4 ug/mL (10-15)
== END 2023-03-18 11:57 | disposition home or self-care (01) ==
PROVIDERS: PCP Family Medicine; Visit Provider Student in an Organized Health Care Education/Training Program
DX: Z45.2 Encounter for adjustment and management of vascular access device (principal)
CPT/HCPCS: 80202; 82565

== ENCOUNTER 2023-03-24 08:34 | Outpatient (CLI) | payer MEDICARE, SELFPAY ==
[2023-03-17 10:01] LABS: Vancomycin Trough 21.2 ug/mL (10-15)
[2023-03-17 10:03] LABS: C Reactive Protein 7.3 mg/L (0.0-4.9)
[2023-03-24 09:06] LABS: C Reactive Protein 7.3 mg/L (0.0-4.9)
[2023-03-24 09:14] LABS: Vancomycin Trough 13.4 ug/mL (10-15)
== END 2023-03-24 08:35 | disposition home or self-care (01) ==
LOC: LAB 08:35
PROVIDERS: PCP Family Medicine; Visit Provider Student in an Organized Health Care Education/Training Program
DX: Z45.2 Encounter for adjustment and management of vascular access device (principal)
CPT/HCPCS: 80202; 82565; 86140

== ENCOUNTER → 2023-04-17 11:00 | Outpatient (BNVA) | payer MEDICARE, SELFPAY | PROVIDERS: PCP Family Medicine; Visit Provider Student in an Organized Health Care Education/Training Program | DX: R19.7 Diarrhea, unspecified (principal); M00.9 Pyogenic arthritis, unspecified | CPT/HCPCS: 99215 ==

== ENCOUNTER 2023-04-18 09:49 | Outpatient (CLI) | payer MEDICARE, SELFPAY ==
[2023-04-19 14:00] LABS: Clostridium Difficile PCR DETECTED (NOT DETECTED)
== END 2023-04-18 09:50 | disposition home or self-care (01) ==
PROVIDERS: PCP Family Medicine; Visit Provider Student in an Organized Health Care Education/Training Program
DX: R19.7 Diarrhea, unspecified (principal)
CPT/HCPCS: 87324; 87493

== ENCOUNTER → 2023-04-25 08:18 | Outpatient (BNVA) | payer MEDICARE, SELFPAY | PROVIDERS: PCP Family Medicine; Visit Provider Physician Assistant | DX: Z98.890 Other specified postprocedural states (principal) | CPT/HCPCS: 99024; 99213 ==

== ENCOUNTER → 2023-10-23 09:16 | Outpatient (BNVA) | payer MEDICARE, SELFPAY | PROVIDERS: PCP Family Medicine; Visit Provider Clinical Nurse Specialist Adult Health | DX: R19.7 Diarrhea, unspecified (principal) | CPT/HCPCS: 80053 ==

== ENCOUNTER → 2023-10-27 10:56 | Outpatient (BNVA) | payer MEDICARE, SELFPAY | PROVIDERS: PCP Family Medicine; Visit Provider Family Medicine | DX: R19.7 Diarrhea, unspecified (principal) | CPT/HCPCS: 83630; 87045; 87046; 87177; 87209; 87324; 87427; 87449; 87493 ==

== ENCOUNTER → 2023-11-11 10:30 | Outpatient (BNVA) | payer MEDICARE, SELFPAY | PROVIDERS: PCP Family Medicine; Visit Provider Family Medicine | DX: R19.7 Diarrhea, unspecified (principal) | CPT/HCPCS: 80053; 85025; 86140 ==

== ENCOUNTER 2023-12-12 10:58 | Outpatient (CLI) | payer MEDICARE, SELFPAY ==
--- NOTE | 2023-12-12 12:00 | CTR_ITS ---
PROCEDURE INFORMATION: Exam: CT Abdomen And Pelvis With Contrast Exam date and time: 12/12/2023 12:11 PM Age: 78 years old Clinical indication: Abdominal pain; Generalized; Prior surgery; Surgery date: 6+ months; Surgery type: Stomach; Patient HX: Persistent diarrhea/abd pain; PT states x1 mon, PT states primary physician gave him a shot and diarrhea was improving x3-4 days but has since increased again. ; Additional info: Persistent diarrhea/ abd pain TECHNIQUE: Imaging protocol: Computed tomography of the abdomen and pelvis with contrast. Radiation optimization: All CT scans at this facility use at least one of these dose optimization techniques: automated exposure control; mA and/or kV adjustment per patient size (includes targeted exams where dose is matched to clinical indication); or iterative reconstruction. Contrast material: OMNI 350; Contrast volume: 100 ml; Contrast route: INTRAVENOUS (IV); COMPARISON: CT pelvis w con* [id number] 03/05/2018 2:27 PM RADIATION DOSE METRICS: Total DLP (mGy-cm): 245.93 FINDINGS: Liver: Normal. No mass. Gallbladder and biliary ducts: Normal. No calcified stones. No ductal dilation. Pancreas: Normal. No ductal dilation. Spleen: Normal. No splenomegaly. Adrenal glands: Normal. No mass. Kidneys and ureters: Normal. No hydronephrosis. Stomach and bowel: Unremarkable. No obstruction. No mucosal thickening. Appendix: No evidence of appendicitis. Intraperitoneal space: Unremarkable. No free air. No significant fluid collection. Vasculature: Unremarkable. No abdominal aortic aneurysm. Lymph nodes: Unremarkable. No enlarged lymph nodes. Urinary bladder: Unremarkable as visualized. Reproductive: Unremarkable as visualized. Bones/joints: Anterior and posterior fusion of the lumbar spine. Soft tissues: Unremarkable. CT/CT abdomen pelvis w con* [id number] IMPRESSION: No acute findings.
[2023-12-12] MEDS: iohexol 350 mg/mL 500 mL Btl (per mL) PO (12:15)
[2023-12-12] MEDS: iohexol 350 mg/mL 500 mL Btl (per mL) IV (12:17)
== END 2023-12-12 10:59 | disposition home or self-care (01) ==
LOC: RAD 10:59
PROVIDERS: PCP Family Medicine; Visit Provider Family Medicine
DX: R19.7 Diarrhea, unspecified (principal); R10.9 Unspecified abdominal pain
CPT/HCPCS: 74177; Q9967

== ENCOUNTER → 2024-06-01 07:37 | Outpatient (BNVA) | payer MEDICARE, SELFPAY | PROVIDERS: PCP Family Medicine; Visit Provider Physician Assistant | DX: G56.02 Carpal tunnel syndrome, left upper limb | CPT/HCPCS: 73110; 99214 ==

== ENCOUNTER 2024-06-18 07:44 | Day surgery (SDC) | payer MEDICARE, SELFPAY ==
[2024-06-18] VITALS (7 sets, daily range): BP systolic 102–138; BP diastolic 50–76; PULSE 50–61; RESP 16–18; TEMP 36.1–36.3; O2SAT 98–100; BMI 20.5
[2024-06-18] MEDS: ketorolac 30 mg/mL INJ IVP (08:13)
[2024-06-18] MEDS: acetaminophen 1,000 MG/100 ML PIGGYBACK 400 MG IV (08:13)
[2024-06-18] MEDS: sodium chloride 0.9% 1,000 ML 30 ML IV (08:17)
--- NOTE | 2024-06-18 08:45 | W.PM.OPSUD ---
Surgery/Procedure H&P Update DATE OF PROCEDURE: June 18, 2024 DATE H&P PERFORMED: 06/01/24 H&P UPDATE INFORMATION: I have reviewed H&P completed within last 30 days, I have examined patient prior to procedure and No changes to prior documentation PREOP DIAGNOSIS: Left carpal tunnel syndrome PRIMARY INDICATION FOR PROCEDURE: Left carpal tunnel syndrome PLANNED PROCEDURE: Operation Date: 06/18/24 09:15 Proposed Procedures p Carpal Tunnel Release(Left) - Abhi Zuniga DO
[2024-06-18] MEDS: ceFAZolin 2,000 MG in sodium chloride 0.9% (plus) 50 ML 100 MG IV (08:53)
[2024-06-18] MEDS: ROPivacaine 0.5% SDV 30 mL 25 MG INJECTION (08:57)
[2024-06-18] MEDS: lidocaine-epi 1% PF 1:200,000 30 mL SDV 5 ML INJECTION (08:57)
--- NOTE | 2024-06-18 09:07 | ANES.PREANE2 ---
Pre-Anesthetic Assessment Height/Weight: Height 5 ft 8 in Weight 135 lb Temp Pulse Resp BP Pulse Ox O2 Del Method 97.3 F L 60 16 138/76 99 Room Air 06/18/24 08:01 06/18/24 08:01 06/18/24 08:01 06/18/24 08:01 06/18/24 08:01 06/18/24 08:02 Preop Diagnosis: Left carpal tunnel syndrome Operation Date: 06/18/24 09:15 Proposed Procedures p Carpal Tunnel Release(Left) - Abhi Zuniga, DO Was Beta Joon taken within 24 hours: N/A Was Clonidine taken within 24 hours: N/A Last intake: Intake Last Liquid Date 06/17/24 Last Liquid Time 19:30 Last Solid Date 06/17/24 Last Solid Time 19:30 Social Tobacco and No alcohol Exam alert, oriented x 3 and regular rate & rhythm Decreased breath sounds bilaterally Airway Submandibular: within normal limits Cervical ROM: within normal limits Mallampati: Class III Dentition: full Comments: Comments: Implants on the front Anesthetic Plan ASA status: 2 Anesthesia: MAC Other: Patient denies any issues with anesthesia NPO since yesterday History of GERD on Protonix COPD, current smoker. On chronic inhalers. Denies any cardiac issues Patient states he is able to perform ADLs Plan for MAC anesthetic with local via surgeon Medications/Allergies Home Medications ?Medication ?Instructions ?Recorded ?Confirmed ?Last Taken ?Type acetaminophen 325 mg tablet 650 mg PO QAM 02/12/23 06/17/24 06/17/24 History umeclidinium 62.5 mcg-vilanterol 1 inh inhalation DAILY #60 ea 07/31/23 06/17/24 Unknown Rx 25 mcg/actuation powdr for inhalation (Anoro Ellipta) triamcinolone acetonide 0.5 % 1 applic topical BID #45 grams 11/11/23 06/17/24 Unknown Rx topical cream famotidine 40 mg tablet (Pepcid) 40 mg PO BID #10 tabs 01/10/24 06/17/24 06/18/24 Rx diclofenac sodium 1 % topical gel 4 g topical QID #100 grams 05/06/24 06/17/24 06/16/24 Rx (Voltaren Arthritis Pain) albuterol sulfate 90 mcg/actuation See Rx Instructions .Route 05/20/24 06/17/24 Unknown Rx aerosol inhaler .COMPLEX #18 grams fluticasone 500 mcg-salmeterol 50 See Rx Instructions .Route 05/20/24 06/17/24 06/17/24 Rx mcg/dose blistr powdr for .COMPLEX #60 ea inhalation hydrocodone 5 mg-acetaminophen 325 1 tab PO Q8H PRN pain 2 weeks #30 05/20/24 06/17/24 06/17/24 Rx mg tablet tabs pantoprazole 40 mg tablet,delayed 40 mg PO DAILY 06/17/24 06/17/24 06/18/24 History release tramadol 50 mg tablet 50 mg PO Q6H PRN pain 5 days #20 06/18/24 Unknown Rx tabs Allergies Allergy/AdvReac Type Severity Reaction Status Date / Time No Known Allergies Allergy Verified 05/06/24 11:16 Current Medications Generic Name Dose Route Start Last Admin Trade Name Freq PRN Reason Stop Dose Admin Sodium Chloride 1,000 mls @ 30 mls/hr 06/18/24 08:00 06/18/24 08:17 Sodium Chloride 0.9% IV 06/19/24 07:59 30 mls/hr .Q24H MISSY Administration PFSH Anesthesia Medical History COPD (chronic obstructive pulmonary disease) History of back pain Smoker Surgical History History of back surgery Family History Mother CAD (coronary artery disease) Social History Smoking and tobacco/nicotine status: unknown if used tobacco/nicotine Alcohol intake: never Substance/Drug Use: never Data Anesthesia Cardiac Studies: No Data to Display
--- NOTE | 2024-06-18 09:18 | W.PM.BPON ---
Date of Procedure: 06/18/2024 Surgeon: Abhi Zuniga DO [facility] Worker(s): None Procedure(s) performed: Left carpal tunnel release Findings of the procedure(s): Patient found to have left carpal tunnel syndrome underwent procedure as planned without issues or complications Estimated blood loss: 5mL Specimen(s) removed: None Post-operative diagnosis: Left carpal tunnel syndrome
--- NOTE | 2024-06-18 09:26 | P.OP_ITS ---
Operative Report Date of procedure: June 18, 2024 Surgeon: Abhi Zuniga DO Procedure: Preop Diagnosis: Left Carpal Tunnel Syndrome Post-op diagnosis: Same Procedure done: 1. Left carpal tunnel release Surgeon: Abhi Zuniga DO Anesthesia: MAC (Local) Estimated blood loss: [<5 ]mL Tourniquet time [ 4]minutes IV fluids: See anesthesia record Complications: None Findings: See operative report narrative Condition: stable Disposition: same day Brief History: Patient is a pleasant [ 79 ]year-old [ M] with left carpal tunnel syndrome. Patient has been worked up in the outpatient setting findings and physical examination consistent with this. Patient nerve conduction studies consistent with carpal tunnel syndrome. We detailed out patient's risk benefits complication alternatives with surgical and nonsurgical treatment options. Through shared decision making, patient agrees to proceed with surgical intervention of the left carpal tunnel release . Patient understands and agrees with current plan. All questions answered. Patient elects to proceed with surgical intervention with carpal tunnel release. Procedure: Patient seen and evaluated in the preoperative holding area. Consent was reviewed and signed with patient. Correct extremity was marked. Patient was seen evaluated by the anesthesia department once cleared for surgery was brought back to the operative suite. Patient was kept on [facility] in supine position all bony prominences were well-padded patient properly secured to the bed. Left upper extremity was then placed onto an armboard. A nonsterile tourniquet was applied to the left upper arm. Patient underwent anesthesia per the anesthesia department. Patient's left upper extremity was then prepped and draped in standard orthopedic fashion. Final timeout performed. Patient received appropriate preoperative antibiotics. Under sterile aseptic technique patient received local anesthesia over the preplanned carpal tunnel incision site. Esmarch was used to exsanguinate the left upper extremity and tourniquet was insufflated to 250 mmHg. A standard mini open left carpal tunnel incision was made. Starting distally at Chacko's cardinal line in line with the fourth ray extending proximally distal to the wrist crease centered over the carpal tunnel. Sharp scalpel incision was made through skin and subcutaneous tissue. Self-retaining retractor was placed and the palmar fascia was identified. This was then split longitudinally and direct visualization of the transverse carpal ligament was then made. I then utilizing scalpel feathered through the transverse carpal ligament until I entered the floor of the transverse carpal tunnel ligament into the carpal tunnel. Next I switched to dissection scissors and completed my release of the transverse carpal ligament distally with care to protect the recurrent motor branch. I completely released into the palmar fat and until no entrapment was noted distally. Care was made to protect the superficial palmar arch during my distal dissection. Next, nasal speculum placed proximally for retraction of soft tissue on top of the Transverse carpal ligament. Next the contents of the carpal tunnel where protected and and subsequently utilizing dissection scissors under loupe magnification completely released the transverse carpal ligament proximally into the antebrachial fascia. Care was made to protect the palmar cutaneous branch by keeping my scissors curved ulnarly. Once completely released, I then placed my [place] and had appropriate decompression of the carpal tunnel proximally as well as distally. I then inspected the contents of the carpal tunnel which showed an hourglass shape of the median nerve showing its compression. No masses were noted. Tendons appeared healthy. Wound was then thoroughly irrigated. Tourniquet deflated. Hemostasis satisfactory with bipolar electrocautery. I then closed the incision with interrupted nylon stitches. Xeroform 4 x 4's and a bulky soft dressing was applied to the left upper extremity. Patient was then awakened from anesthesia and taken to PACU in stable condition. Patient tolerated procedure without complications. Disposition: Patient taken to PACU in stable condition recovering well. Dressing clean dry and intact. Patient will receive appropriate discharge instructions as well as pain medication postoperatively. Patient to follow-up w saida chung in the office in 2 weeks. They understand they may be weightbearing as tolerated to the left hand. Patient should keep incision clean dry and intact. Patient understands if any questions or concerns may contact the office.
[2024-06-18] MEDS: TRAMadol 50 mg Tablet PO (10:00)
--- NOTE | 2024-06-18 10:27 | ANE.PACU2 ---
Inpatient post-anesthesia follow up: Airway intact: Yes Vital signs: Temperature 97.2 F Pulse Rate 52 Respiratory Rate 16 Blood Pressure 114/63 Pulse Oximetry 98 Oxygen Delivery Me thod Room Air Oxygen Flow Rate 8 Fraction of Inspir ed Oxygen Hydration adequate: Yes Nausea and vomiting: No Pain level: 1 Mental status: Baseline
== END 2024-06-18 10:27 | disposition home or self-care (01) ==
PROVIDERS: PCP Family Medicine; Visit Provider Student in an Organized Health Care Education/Training Program
PROC: (CPT 64721; principal; 2024-06-18 09:05)
DX: G56.02 Carpal tunnel syndrome, left upper limb (principal); K21.9 Gastro-esophageal reflux disease without esophagitis; J44.9 Chronic obstructive pulmonary disease, unspecified; F17.200 Nicotine dependence, unspecified, uncomplicated; Z79.899 Other long term (current) drug therapy
CPT/HCPCS: 64721; J0131; J0690; J1885; J2250; J2704; J2795; J3010; J7030

== ENCOUNTER → 2024-07-02 08:09 | Outpatient (BNVA) | payer MEDICARE, SELFPAY | PROVIDERS: PCP Family Medicine; Visit Provider Physician Assistant | DX: Z98.890 Other specified postprocedural states (principal) | CPT/HCPCS: 99024 ==

== ENCOUNTER 2024-12-22 14:13 | Outpatient (CLI) | payer MEDICARE, SELFPAY | END 2024-12-22 14:14 | disposition home or self-care (01) | PROVIDERS: PCP Family Medicine; Visit Provider Internal Medicine | DX: J44.9 Chronic obstructive pulmonary disease, unspecified (principal) | CPT/HCPCS: 36415; 80053; 85025; 99204 ==

== ENCOUNTER 2024-12-25 10:45 | Emergency (ER) | payer MEDICARE, SELFPAY ==
[2024-12-25 10:57] VITALS: BP 114/58; PULSE 79; RESP 17; TEMP 37.2; O2SAT 92; BMI 20.9
--- NOTE | 2024-12-25 11:25 | XRR_ITS ---
PROCEDURE INFORMATION: Exam: XR Thoracic Spine Exam date and time: 12/25/2024 11:50 AM Age: 79 years old Clinical indication: Pain in thoracic spine; Additional info: Upper-mid/lower back pain post fall; HX lumbar fusion x 4 yrs ago TECHNIQUE: Imaging protocol: Radiologic exam of the thoracic spine. Views: 3 views. COMPARISON: CT cervical spin wo con* [id number] 12/25/2024 11:44 AM FINDINGS: Bones/joints: Osteopenia Soft tissues: Unremarkable. Lungs: Retrocardiac reticular opacities that might represent atelectasis versus infiltrates. Vasculature: Post right distal claviculectomy. There are aortic arch calcifications. XR/XR thoracic spine 3V* [id number] IMPRESSION: No acute fracture or dislocation.
--- NOTE | 2024-12-25 11:25 | CTR_ITS ---
PROCEDURE INFORMATION: Exam: CT Cervical Spine Without Contrast Exam date and time: 12/25/2024 11:44 AM Age: 79 years old Clinical indication: Injury or trauma; Fall; Blunt trauma TECHNIQUE: Imaging protocol: Computed tomography of the cervical spine without contrast. Radiation optimization: All CT scans at this facility use at least one of these dose optimization techniques: automated exposure control; mA and/or kV adjustment per patient size (includes targeted exams where dose is matched to clinical indication); or iterative reconstruction. COMPARISON: CT head wo con* [id number] 12/25/2024 11:44 AM RADIATION DOSE METRICS: Total DLP (mGy-cm): 202.6 FINDINGS: Bones: Demineralization of the visualized bones, limiting sensitivity for nondisplaced fractures. CPPD changes around the dens. The cervical spine demonstrates mild degenerative changes at multiple levels. No acute fracture, compression deformity or spondylolisthesis. Lungs: Severe centrilobular emphysematous changes are present. Vasculature: There is mild atherosclerotic calcification of the carotid arteries. Soft tissues: Unremarkable. CT/CT cervical spin wo con* [id number] IMPRESSION: No acute posttraumatic changes in the cervical spine.
--- NOTE | 2024-12-25 11:25 | CTR_ITS ---
PROCEDURE INFORMATION: Exam: CT Chest With Contrast; Diagnostic Exam date and time: 12/25/2024 11:51 AM Age: 79 years old Clinical indication: Injury or trauma; Fall; Abdominal wall; Blunt trauma (contusions or hematomas); Prior surgery; Surgery date: 6+ months; Surgery type: Stomach, lumbar TECHNIQUE: Imaging protocol: Diagnostic computed tomography of the chest with contrast. Radiation optimization: All CT scans at this facility use at least one of these dose optimization techniques: automated exposure control; mA and/or kV adjustment per patient size (includes targeted exams where dose is matched to clinical indication); or iterative reconstruction. Contrast material: OMNIPAQUE 350; Contrast volume: 100 ml; Contrast route: INTRAVENOUS (IV); COMPARISON: CR XR chest 1V portable [id number] 02/15/2023 4:28 PM RADIATION DOSE METRICS: Total DLP (mGy-cm): 718.68 FINDINGS: Lungs: Mucous plugging in the right lower lobe and left lower lobe bronchi. Moderate centrilobular emphysematous changes are present. There are right lower lobe infiltrates. Pleural spaces: Unremarkable. No pneumothorax. No pleural effusion. Heart: Unremarkable. No cardiomegaly. No pericardial effusion. Lymph nodes: Unremarkable. No enlarged lymph nodes. Vasculature: Unremarkable. No aortic aneurysm. Diaphragm: A small hiatal hernia is present. Bones/joints: Moderate degenerative disease of the right glenohumeral joint. Demineralization of the visualized bones, limiting sensitivity for nondisplaced fractures. The thoracic spine demonstrates mild degenerative changes at multiple levels. Soft tissues: Unremarkable. PROCEDURE INFORMATION: Exam: CT Abdomen And Pelvis With Contrast Exam date and time: 12/25/2024 11:51 AM Age: 79 years old Clinical indication: Injury or trauma; Fall; Abdominal wall; Blunt trauma (contusions or hematomas); Prior surgery; Surgery date: 6+ months; Surgery type: Stomach, lumbar TECHNIQUE: Imaging protocol: Computed tomography of the abdomen and pelvis with contrast. Radiation optimization: All CT scans at this facility use at least one of these dose optimization techniques: automated exposure control; mA and/or kV adjustment per patient size (includes targeted exams where dose is matched to clinical indication); or iterative reconstruction. Contrast material: OMNIPAQUE 350; Contrast volume: 100 ml; Contrast route: INTRAVENOUS (IV); COMPARISON: CT abdomen pelvis w con* [id number] 12/12/2023 12:11 PM RADIATION DOSE METRICS: Total DLP (mGy-cm): 718.68 FINDINGS: Liver: Normal. No mass. Gallbladder and biliary ducts: Normal. No calcified stones. No ductal dilation. Pancreas: Normal. No ductal dilation. Spleen: Normal. No splenomegaly. Adrenal glands: Normal. No mass. Kidneys and ureters: Normal. No hydronephrosis. Stomach and bowel: Postsurgical changes of partial right colectomy. Appendix: No evidence of appendicitis. Intraperitoneal space: Unremarkable. No free air. No significant fluid collection. Vasculature: The vasculature demonstrates diffuse mild atherosclerotic calcification. There are numerous benign phleboliths in the pelvis. Lymph nodes: Unremarkable. No enlarged lymph nodes. Urinary bladder: Unremarkable as visualized. Reproductive: Unremarkable as visualized. Bones/joints: Demineralization of the visualized bones, limiting sensitivity for nondisplaced fractures. There are mild degenerative changes of the sacroiliac joints. Post posterior L4-L5 instrumentation with disc spacer. No hardware complications. The lumbar spine demonstrates mild degenerative changes at multiple levels. Chronic compression deformities of L1 and L3 vertebral bodies. There are mild degenerative changes of the hip joints. The pubic symphysis demonstrates mild degenerative changes. Soft tissues: There is a fat-containing and bowel umbilical hernia with no bowel obstruction. CT/CT chest abdpel w/*[id number] IMPRESSION: No acute posttraumatic changes in the chest. IMPRESSION: No acute posttraumatic changes in the abdomen and pelvis.
--- NOTE | 2024-12-25 11:25 | XRR_ITS ---
PROCEDURE INFORMATION: Exam: XR Lumbosacral Spine Exam date and time: 12/25/2024 11:50 AM Age: 79 years old Clinical indication: Pain; Lumbago; Prior surgery; Surgery date: 6+ months; Surgery type: Fusion; Additional info: Upper-mid/lower back pain post fall; HX lumbar fusion x 4 yrs ago TECHNIQUE: Imaging protocol: Radiologic exam of the lumbosacral spine. Views: 2 or 3 views. COMPARISON: MR lumbar spine wo con* [id number] 09/26/2021 10:25 AM FINDINGS: Tubes, catheters and devices: Post posterior instrumentation at L4-L5 with interbody disc spacer. Bones/joints: Chronic compression deformities of the L1 and L3 vertebral bodies. No acute fracture. No spondylolisthesis. Soft tissues: Unremarkable. XR/XR lumbar spine 2-3V* [id number] IMPRESSION: No acute posttraumatic changes in the lumbar spine.
--- NOTE | 2024-12-25 11:25 | CTR_ITS ---
PROCEDURE INFORMATION: Exam: CT Head Without Contrast Exam date and time: 12/25/2024 11:44 AM Age: 79 years old Clinical indication: Injury or trauma; Fall; Blunt trauma (contusions or hematomas); Without loss of consciousness TECHNIQUE: Imaging protocol: Computed tomography of the head without contrast. Radiation optimization: All CT scans at this facility use at least one of these dose optimization techniques: automated exposure control; mA and/or kV adjustment per patient size (includes targeted exams where dose is matched to clinical indication); or iterative reconstruction. COMPARISON: CT cervical spin wo con* [id number] 12/25/2024 11:44 AM RADIATION DOSE METRICS: Total DLP (mGy-cm): 834.2 FINDINGS: Brain: There is encephalomalacia in the right anterior MCA territory involving the right frontal lobe and right insula. Age related diffuse parenchymal volume loss. No recent infarct, intracranial bleed or mass effect. Cerebral ventricles: Ex vacuo dilatation of the ventricles. Paranasal sinuses: Mucosal disease in the left sphenoid sinus with frothy secretions Mastoid air cells: Visualized mastoid air cells are well aerated. Orbital cavities: Post bilateral cataract surgery. Bones: Unremarkable. No acute fracture. Soft tissues: Unremarkable. CT/CT head wo con* [id number] IMPRESSION: No acute intracranial posttraumatic changes.
--- NOTE | 2024-12-25 11:27 | W.ED.BACK ---
HPI - Back Pain/Injury General: Chief Complaint: Back Pain/Injury Stated Complaint: fall Time Seen by Provider: 12/25/24 11:05 History of Present Illness: Chief complaint is fall with head and back injury. Patient states 2 days ago he was trying to step down off the tailgate of his pickup truck and he fell backwards and hit his head against the cement retaining wall and hit his back against a tire. He states his head feels okay but his back hurts and it is severe when he tries to lay flat. He states he went to urgent care and they sent a prescription for pain medication. Related Data Home Medications ?Medication ?Instructions ?Recorded ?Confirmed acetaminophen 325 mg tablet 650 mg PO QAM 02/12/23 12/25/24 Previous Rx's ?Medication ?Instructions ?Recorded triamcinolone acetonide 0.5 % 1 applic topical BID #45 grams 11/11/23 topical cream famotidine 40 mg tablet (Pepcid) 40 mg PO BID #10 tabs 01/10/24 diclofenac sodium 1 % topical gel 4 g topical QID #100 grams 05/06/24 (Voltaren Arthritis Pain) albuterol sulfate 90 mcg/actuation See Rx Instructions .Route 09/22/24 aerosol inhaler .COMPLEX #18 grams prednisone 10 mg tablet 10 mg PO DAILY #30 tabs 10/28/24 pantoprazole 40 mg tablet,delayed See Rx Instructions .Route 11/01/24 release .COMPLEX #90 tabs tramadol 50 mg tablet 50 mg PO Q6H PRN pain #120 tabs 11/22/24 tiotropium bromide 2.5 2 puff inhalation DAILY #4 grams 12/22/24 mcg/actuation mist for inhalation (Spiriva Respimat) hydrocodone 5 mg-acetaminophen 325 1 tab PO BID PRN pain 5 days #10 12/25/24 mg tablet tabs Allergies Allergy/AdvReac Type Severity Reaction Status Date / Time No Known Allergies Allergy Verified 12/25/24 10:14 [facility] ED PFSH: Medical History COPD (chronic obstructive pulmonary disease) History of back pain Smoker Surgical History History of back surgery Family History Mother CAD (coronary artery disease) Father , age 57 Heart attack Social History (Updated 12/22/24 @ 14:02 by Vinita Dawson LPN) Smoking and tobacco/nicotine status: current every day tobacco/nicotine user cigarettes Packs smoked per day: 3 Years cigarettes smoked: 73 [ Other cigarette details: started at age 6] Alcohol intake: never Substance/Drug Use: never Physical Exam Narrative: EXAM NARRATIVE: Patient is alert oriented in mild distress. He is moving his neck freely. No focal tenderness over his neck. He has large old appearing abrasion on his forehead. Pupils equal reactive to light. Moist mucous membranes. No signs of facial trauma otherwise. Heart regular rhythm and lung sounds are clear. Abdomen soft nontender however he has some guarding and difficulty laying flat due to pain. He has no significant tenderness over his back. No tenderness over his ribs. He has intact motor and sensation in his extremities. He declines to take his shoes and socks and pants off and states his legs are fine but he and he moves his legs freely. He can plantarflex dorsiflex and has intact sensation in his inner thighs and outer leg and distally. He has no pain with movement of the legs or arms. His speech is clear. He shows ability to reason. Skin is warm and dry. Course Vital Signs: Vital signs: Vital Signs Temperature 98.9 F 12/25/24 10:57 Pulse Rate 79 12/25/24 10:57 Respiratory Rate 17 12/25/24 10:57 Blood Pressure 114/58 12/25/24 10:57 Pulse Oximetry 92 12/25/24 10:57 Oxygen Delivery Me thod Room Air 12/25/24 10:57 MDM - Back Pain/Injury Medical Decision Making Patient presents after falling off the back of his pickup 2 days ago. He has signs of head injury and with his age and mechanism I recommended CT head and cervical spine. Additionally patient has pain in his low thoracic upper lumbar region. He states he has a little bit of pain down towards the tailbone. He states he has a titanium plate and he wanted to make sure it was okay. He states it hurts if he tries to lay flat. If he sitting upright he states he is okay. He declines any pain medicine at this time. He denies any abdominal pain or abdominal injury. The pain does wrap around the right side towards the abdomen. Rib fracture, retroperitoneal injury, other abdominal injury, spinal fracture with radicular pain, herniated disc with radicular pain or other nerve impingement, broad differential. His abdomen was soft nontender and his pain seems to be more radicular in nature. Recommended however getting CT chest abdomen pelvis as well and x-ray of thoracic and lumbar spine. He denies being on a blood thinner. Denies fever or chest pain or shortness of breath or recent illness. Denies any pain with taking a deep breath. CBC CMP ordered. Patient agrees with plan after informed discussion. White count mildly elevated. Complete metabolic panel did not show significant acute abnormality. CT head cervical spine chest abdomen pelvis and x-rays lumbar and thoracic spine negative for acute process per radiologist. I advised patient clinically however my concerns and recommended MRI. Patient has been repeatedly requesting discharge. He did not want to stay for his results after the CT saying that he wants to go home and have us call him with results. I have discussed with him at length limits of ED evaluation and pending imaging and labs and reasoning for testing and he has agreed with the plan but then will request to leave again repeatedly. I have discussed with the patient multiple times treatment plan, reasoning, my concerns, potential serious etiologies causing his symptoms and potential serious injury. Patient is capable and informed and has states he will wait a little bit but that he wants us to hurry it up or he is going to walk out. I have talked to the patient and within minutes of me talking to him he will start asking for discharge again despite his agreeing to stay initially. Patient is capable and informed. He is fully alert and oriented. Patient finally refused to wait any longer or do any further testing or evaluation and signed out AGAINST MEDICAL ADVICE. I did not find indication to hold or treat the patient against as well. Patient has left AGAINST MEDICAL ADVICE. Labs 12/25/24 11:44 12/25/24 11:44 Radiology Impressions Cervical Spine CT 12/25/24 11:25 IMPRESSION: No acute posttraumatic changes in the cervical spine. Chest/Abdomen/Pelvis CT 12/25/24 11:25 IMPRESSION: No acute posttraumatic changes in the chest. IMPRESSION: No acute posttraumatic changes in the abdomen and pelvis. Head CT 12/25/24 11:25 IMPRESSION: No acute intracranial posttraumatic changes. Lumbar Spine X-Ray 12/25/24 11:25 IMPRESSION: No acute posttraumatic changes in the lumbar spine. Thoracic Spine X-Ray 12/25/24 11:25 IMPRESSION: No acute fracture or dislocation. Laboratory Results WBC 12.25 10^3/uL (3.29-11.43) H 12/25/24 11:44 RBC 4.28 10^6/uL (3.85-5.65) 12/25/24 11:44 Hgb 13.20 g/dL (11.27-16.99) 12/25/24 11:44 Hct 41.2 % (37-53) 12/25/24 11:44 MCV 96.3 fl (82-101) 12/25/24 11:44 MCH 30.8 pg (27-33) 12/25/24 11:44 MCHC 32.0 g/dL (30-55) 12/25/24 11:44 RDW 14.6 % (12.1-15.1) 12/25/24 11:44 Plt Count 220 10^3/cmm (157-399) 12/25/24 11:44 MPV 10.3 fL (7.4-10.4) 12/25/24 11:44 Neut % (Auto) 78.3 % 12/25/24 11:44 Lymph % (Auto) 9.7 % 12/25/24 11:44 [place] % (Auto) 10.9 % 12/25/24 11:44 Eos % (Auto) 0.3 % 12/25/24 11:44 Baso % (Auto) 0.3 % 12/25/24 11:44 Neut # (Auto) 9.59 10^3/uL (1.8-7.7) H 12/25/24 11:44 Lymph # (Auto) 1.2 10^3/uL (0.8-4.8) 12/25/24 11:44 [place] # (Auto) 1.3 10^3/uL (0.2-0.9) H 12/25/24 11:44 Eos # (Auto) 0.0 10^3/uL (0.0-0.8) 12/25/24 11:44 Baso # (Auto) 0.0 10^3/uL (0.0-0.1) 12/25/24 11:44 Nucleated RBC % (auto) 0 % 12/25/24 11:44 Nucleated RBCs # 0.0 /100WBC 12/25/24 11:44 Sodium 141 mmol/L (136-145) 12/25/24 11:44 Potassium 4.6 mmol/L (3.5-5.1) 12/25/24 11:44 Chloride 104 mmol/L (98-107) 12/25/24 11:44 Carbon Dioxide 25 mmol/L (22-29) 12/25/24 11:44 Anion Gap 16.6 (5-19) 12/25/24 11:44 BUN 23 mg/dL (8-23) 12/25/24 11:44 Creatinine 0.9 mg/dL (0.7-1.2) 12/25/24 11:44 GFR Calculation Not Reportable 12/25/24 11:44 Glucose 106 mg/dL (65-115) 12/25/24 11:44 Calculated Osmolality 296 mOsm/kg (285-295) H 12/25/24 11:44 Calcium 9.1 mg/dL (8.5-10.5) 12/25/24 11:44 Total Bilirubin 0.8 mg/dL (0.15-1.2) 12/25/24 11:44 AST 10 U/L (0-40) 12/25/24 11:44 ALT 9 U/L (0-41) 12/25/24 11:44 Alkaline Phosphatase 69 U/L (40-130) 12/25/24 11:44 Total Protein 7.1 g/dL (6.6-8.7) 12/25/24 11:44 Albumin 4.2 g/dL (3.5-5.2) 12/25/24 11:44 Globulin 2.9 g/dL (1.3-4.6) 12/25/24 11:44 All radiology interpretation(s) finalized by discharge Discharge Plan Discharge Patient Disposition: Left Against Medical Advice Clinical Impression: Back injury, Head injury, Fall Condition: Fair Prescriptions: No Action triamcinolone acetonide 0.5 % cream 1 applic topical BID Qty: 45 2RF famotidine [Pepcid] 40 mg tablet 40 mg PO BID Qty: 10 0RF hydrocodone-acetaminophen 5-325 mg tablet 1 tab PO BID PRN (Reason: pain) 5 Days Qty: 10 0RF diclofenac sodium [Voltaren Arthritis Pain] 1 % gel 4 g topical QID Qty: 100 0RF albuterol sulfate 90 mcg/actuation HFA aerosol inhaler See Rx Instructions .ROUTE .COMPLEX Qty: 18 11RF Dose Instruction: INHALE 2 PUFFS BY MOUTH EVERY 4 HOURS DIRECTED NEEDED Rx Instructions: INHALE 2 PUFFS BY MOUTH EVERY 4 HOURS DIRECTED NEEDED prednisone 10 mg tablet 10 mg PO DAILY Qty: 30 3RF Spiriva Respimat 2.5 mcg/actuation mist 2 puff inhalation DAILY Qty: 4 3RF pantoprazole 40 mg tablet,delayed release (DR/EC) See Rx Instructions .ROUTE .COMPLEX Qty: 90 3RF Dose Instruction: Take 1 tablet by mouth once daily Rx Instructions: Take 1 tablet by mouth once daily tramadol 50 mg tablet 50 mg PO Q6H PRN (Reason: pain) Qty: 120 5RF acetaminophen 325 mg Tablet 650 mg PO QAM Referrals: Jean Bedolla MD [Primary Care Provider, Family Practice] Print Language: German Coding Level of Care Code ED Biomedical Equipment Support Specialist for Grant Guzman
[2024-12-25 11:54] LABS: Hematocrit 41.2 % (37-53); Hemoglobin 13.20 g/dL (11.27-16.99); Mean Corpuscular HGB Conc 32.0 g/dL (30-55); Mean Corpuscular Hemoglobin 30.8 pg (27-33); Mean Corpuscular Volume 96.3 fl (82-101); Nucleated Red Blood Cells % 0 %; Platelet Count 220 10^3/cmm (157-399); Red Blood Count 4.28 10^6/uL (3.85-5.65); White Blood Count 12.25 10^3/uL (3.29-11.43)
[2024-12-25] MEDS: iohexol 350 mg/mL 500 mL Btl (per mL) IV (12:03)
[2024-12-25 12:10] LABS: Alanine Aminotransferase 9 U/L (0-41); Albumin Level 4.2 g/dL (3.5-5.2); Alkaline Phosphatase 69 U/L (40-130); Anion Gap 16.6 (5-19); Aspartate Amino Transferase 10 U/L (0-40); Blood Urea Nitrogen 23 mg/dL (8-23); Calcium 9.1 mg/dL (8.5-10.5); Carbon Dioxide 25 mmol/L (22-29); Chloride 104 mmol/L (98-107); Creatinine Clr Calc Pharmacy 60.1640; Globulin 2.9 g/dL (1.3-4.6); Glucose 106 mg/dL (65-115); Osmolality Calculated 296 mOsm/kg (285-295); Potassium 4.6 mmol/L (3.5-5.1); Sodium 141 mmol/L (136-145); Total Protein 7.1 g/dL (6.6-8.7)
== END 2024-12-25 13:05 | disposition left against medical advice (07) ==
PROVIDERS: Emergency Provider Emergency Medicine; PCP Family Medicine
DX: S39.92XA Unspecified injury of lower back, initial encounter (principal); S09.90XA Unspecified injury of head, initial encounter; F17.210 Nicotine dependence, cigarettes, uncomplicated; J44.9 Chronic obstructive pulmonary disease, unspecified; W18.09XA Striking against other object with subsequent fall, initial encounter
CPT/HCPCS: 36415; 70450; 71260; 72072; 72100; 72125; 74177; 80053; 85025; 99285

== ENCOUNTER 2024-12-30 07:14 | Outpatient (CLI) | payer MEDICARE, SELFPAY ==
--- NOTE | 2024-12-30 07:45 | CTR_ITS ---
PROCEDURE INFORMATION: Exam: CT Chest Without Contrast; Diagnostic Exam date and time: 12/30/2024 7:31 AM Age: 79 years old Clinical indication: Shortness of breath; Difficulty breathing , copd, SOB chronic; Additional info: Follow up TECHNIQUE: Imaging protocol: Diagnostic computed tomography of the chest without contrast. Radiation optimization: All CT scans at this facility use at least one of these dose optimization techniques: automated exposure control; mA and/or kV adjustment per patient size (includes targeted exams where dose is matched to clinical indication); or iterative reconstruction. COMPARISON: CT chest abdpel w/*[id number] 12/25/2024 11:51 AM RADIATION DOSE METRICS: Total DLP (mGy-cm): 279.04 FINDINGS: Lungs: Moderate centrilobular emphysematous changes are noted. Chronic pleural-parenchymal scarring lung apices noted. Pleural spaces: See Lungs finding. Heart: Unremarkable. No cardiomegaly. No pericardial effusion. Coronary arteries: There is atherosclerotic calcification coronary arteries. Lymph nodes: Unremarkable. No enlarged lymph nodes. Vasculature: Unremarkable. No aortic aneurysm. Bones/joints: Old compression fractures of the lower thoracic spine again noted. Soft tissues: Unremarkable. CT/CT chest [facility] [id number] IMPRESSION: 1. No acute findings. 2. Moderate emphysematous changes.
== END 2024-12-30 07:15 | disposition home or self-care (01) ==
LOC: RAD 07:14
PROVIDERS: PCP Family Medicine; Visit Provider Internal Medicine
DX: J44.9 Chronic obstructive pulmonary disease, unspecified (principal); J43.2 Centrilobular emphysema; J98.4 Other disorders of lung; I25.10 Atherosclerotic heart disease of native coronary artery without angina pectoris
CPT/HCPCS: 71250

== ENCOUNTER 2025-01-05 07:58 | Outpatient (CLI) | payer MEDICARE, SELFPAY ==
[2025-01-05 08:17] VITALS: PULSE 61; RESP 18; O2SAT 99
== END 2025-01-05 07:59 | disposition home or self-care (01) ==
LOC: RT 07:59
PROVIDERS: PCP Family Medicine; Visit Provider Internal Medicine
DX: J44.9 Chronic obstructive pulmonary disease, unspecified (principal); J98.8 Other specified respiratory disorders
CPT/HCPCS: 94060; 94726; 94729; J7613

== ENCOUNTER 2025-01-25 08:52 | Outpatient (CLI) | payer MEDICARE, SELFPAY ==
--- NOTE | 2025-01-25 09:15 | USCV_ITS ---
Rohanananthdiana Wang Age: 79 Gender: M : 1945 Exam Date: 01/25/2025 09:12 Ordering Phys: Aylin Solo MD Technologist: Exam Location: [facility] [place] Indication: cp sob BP: 120 / 70 HR: 64 Rhythm: Sinus Technical Quality: Adequate MEASUREMENTS (Male / Female) Normal Values 2D ECHO LV Diastolic Diameter PLAX 4.6 cm 4.2 - 5.9 / 3.9 - 5.3 cm IVS Diastolic Thickness 1.3 cm 0.6 - 1.0 / 0.6 - 0.9 cm IVS Systolic Thickness 1.8 cm LVPW Diastolic Thickness 1.1 cm 0.6 - 1.0 / 0.6 - 0.9 cm LVPW Systolic Thickness 1.6 cm LVOT Diameter 2.0 cm LV Ejection Fraction 2D Teich 56.5 % LV Ejection Fraction MOD 4C 59.6 % LV Ejection Fraction MOD 2C 68.2 % LV Ejection Fraction 2C AL 67.8 % LA Diameter 4.3 cm RA Systolic Volume 4C AL 43.1 ml RA Systolic Volume 4C MOD 40.8 ml Aorta at Sinotubular Diameter 3.1 cm M-MODE LA Ao Ratio MM 1.3 AV Cusp Separation MM 1.6 cm DOPPLER AV Peak Velocity 172.0 cm/s LVOT Peak Velocity 79.0 cm/s AV Area Cont Eq vti 1.6 cm squared AV Area Cont Eq pk 1.5 cm squared MV Peak Velocity 79.0 cm/s MV Area PHT 4.0 cm squared Mitral E to A Ratio 0.8 TV Peak Velocity 206.5 cm/s TR Peak Velocity 221.0 cm/s TR Peak Gradient 19.5 mmHg TV Peak E Velocity 81.0 cm/s PV Peak Velocity 133.0 cm/s FINDINGS Left Ventricle Normal left ventricular size and systolic function, EF 57%.. Mild left ventricular hypertrophy. Abnormal septal motion consistent with conduction abnormality. Right Ventricle The right ventricle is normal in size and function. Right Atrium The right atrium is normal in size. Left Atrium The left atrium is normal in size. Mitral Valve Mild mitral valve regurgitation. Aortic Valve Thickened aortic valve. Aortic valve sclerosis. Tricuspid Valve Trace tricuspid valve regurgitation. Pulmonic Valve Mild pulmonary valve regurgitation. Pericardium Normal pericardium without effusion. Aorta Normal ascending aorta dimension. IVC Inferior vena cava not visualized. CONCLUSIONS Normal left ventricular size and systolic function, EF 57%.. Mild left ventricular hypertrophy. Abnormal septal motion consistent with conduction abnormality. Thickened aortic valve. Aortic valve sclerosis. Mild mitral valve regurgitation. Trace tricuspid valve regurgitation. Mild pulmonary valve regurgitation. There is no pericardial effusion. There are no intracardiac masses. No similar previous studies are available for comparison Dr Alex Coello MD FAC (Electronically Signed) Final Date: 28 January 2025 09:22 S
== END 2025-01-25 08:53 | disposition home or self-care (01) ==
LOC: RAD 08:56
PROVIDERS: PCP Family Medicine; Visit Provider Internal Medicine
DX: R06.02 Shortness of breath (principal); I51.7 Cardiomegaly; I35.0 Nonrheumatic aortic (valve) stenosis; I34.0 Nonrheumatic mitral (valve) insufficiency; I37.1 Nonrheumatic pulmonary valve insufficiency; I51.9 Heart disease, unspecified
CPT/HCPCS: 93306

== ENCOUNTER → 2025-02-10 10:15 | Outpatient (BNVA) | payer MEDICARE, SELFPAY | PROVIDERS: PCP Family Medicine; Visit Provider Internal Medicine | DX: J44.9 Chronic obstructive pulmonary disease, unspecified (principal); I51.7 Cardiomegaly; F17.210 Nicotine dependence, cigarettes, uncomplicated | CPT/HCPCS: 99212 ==

== ENCOUNTER 2025-03-24 01:53 | Emergency (ER) | payer MEDICARE, SELFPAY ==
[2025-03-24] VITALS (10 sets, daily range): BP systolic 122–143; BP diastolic 60–105; PULSE 64–88; RESP 20–22; TEMP 36.4; O2SAT 94–97; BMI 20.5
--- OUTSIDE RECORDS SUMMARY | 2025-03-24 02:00 | XMS_ITS | Patient Health Record ---
Author Organization [facility] Address [address] [place] [address] Care Team Providers Care Cloth Dyer Name Role Phone Jean Bedolla Primary Care Provider Unavailabl e Reason For Referral No Information Plan Of Treatment No Information Insurance Providers Payer Name Payer Address Payer Phone Subscriber Number Group Number Insured Name Patient Relationship to Insured Coverage Start Date Coverage End Date [employer] Replacement [address] [address] [place] [address] [id number] Wang Martinez Self - patient is the insured
--- NOTE | 2025-03-24 02:03 | ECG_ITS ---
[facility] Test Date: 2025-03-24 Pat Name: Wang Martinez Department: Room: Gender: Male Podiatrist Assistant: : 1945 Requested By: Maria Luz Rodriguez Order Number: [id number] David MD: Valente Ramirez M.D. Measurements Intervals [place] Rate: 87 P: 84 DC: 142 QRS: 50 QRSD: 92 T: 63 QT: 340 QTc: 411 Interpretive Statements SINUS RHYTHM MINIMAL ST DEPRESSION [0.025+ mV ST DEPRESSION] No previous ECG available for comparison Electronically Signed On 03-25-2025 13:13:38 TRANSFER ENGINEER by Valente Ramirez M.D. [email or web address]
--- NOTE | 2025-03-24 02:29 | XRR_ITS ---
PROCEDURE INFORMATION: Exam: XR Chest Exam date and time: 03/24/2025 2:29 AM Age: 79 years old Clinical indication: Shortness of breath TECHNIQUE: Imaging protocol: Radiologic exam of the chest. Views: 2 views. COMPARISON: CT chest con [id number] 12/30/2024 7:31 AM FINDINGS: Lungs: Emphysema. Pleural spaces: No focal consolidation, pleural effusion, or pneumothorax. Heart/Mediastinum: No cardiomegaly. Bones/joints: Unremarkable. XR/XR chest 2V* [id number] IMPRESSION: 1. Emphysema. 2. No focal consolidation, pleural effusion, or pneumothorax.
[2025-03-24 02:34] LABS: Hematocrit 43.2 % (37-53); Hemoglobin 13.50 g/dL (11.27-16.99); Mean Corpuscular HGB Conc 31.3 g/dL (30-55); Mean Corpuscular Hemoglobin 30.0 pg (27-33); Mean Corpuscular Volume 96.0 fl (82-101); Nucleated Red Blood Cells % 0 %; Platelet Count 243 10^3/cmm (157-399); Red Blood Count 4.50 10^6/uL (3.85-5.65); White Blood Count 9.52 10^3/uL (3.29-11.43)
[2025-03-24 02:51] LABS: Alanine Aminotransferase 52 U/L (0-41); Albumin Level 4.5 g/dL (3.5-5.2); Alkaline Phosphatase 172 U/L (40-130); Anion Gap 15.2 (5-19); Aspartate Amino Transferase 46 U/L (0-40); Blood Urea Nitrogen 18 mg/dL (8-23); Calcium 9.6 mg/dL (8.5-10.5); Carbon Dioxide 28 mmol/L (22-29); Chloride 106 mmol/L (98-107); Creatinine Clr Calc Pharmacy 67.1268; Globulin 2.8 g/dL (1.3-4.6); Glucose 129 mg/dL (65-115); Osmolality Calculated 304 mOsm/kg (285-295); Potassium 4.2 mmol/L (3.5-5.1); Sodium 145 mmol/L (136-145); Total Protein 7.3 g/dL (6.6-8.7)
--- NOTE | 2025-03-24 03:39 | ED_ITS ---
HPI - General Adult 2 General: Chief complaint: Shortness of Breath/Dyspnea Stated complaint: SOB Time Seen by Provider: 03/24/25 02:14 History of Present Illness: Patient is an 79-year-old male with a history of COPD, not on home oxygen, current smoker, chronic back pain presents with a chief complaint of shortness of breath over the past day. He states that he has run out of both of his inhalers. He has not had a fever. He denies increase in cough or change in sputum production. No hemoptysis, syncope, chest pain or leg swelling. He denies abdominal pain, nausea or vomiting. Patient has not had exposure to COVID or flu. Related Data Home Medications ?Medication ?Instructions ?Recorded ?Confirmed acetaminophen 325 mg tablet 650 mg PO QAM 02/12/2304/05 Previous Rx's ?Medication ?Instructions ?Recorded famotidine 40 mg tablet (Pepcid) 40 mg PO BID #10 tabs 01/10/24 diclofenac sodium 1 % topical gel 4 g topical QID #100 grams 05/06/24 (Voltaren Arthritis Pain) albuterol sulfate 90 mcg/actuation See Rx Instructions .Route 09/22/24 aerosol inhaler .COMPLEX #18 grams prednisone 10 mg tablet 10 mg PO DAILY #30 tabs 10/10 02/03 pantoprazole 40 mg tablet,delayed See Rx Instructions .Route 11/01/24 release .COMPLEX #90 tabs tramadol 50 mg tablet 50 mg PO Q6H PRN pain #120 t abs 11/22/24 tiotropium bromide 2.5 2 puff inhalation DAILY #4 g nay 12/22/24 mcg/actuation mist for inhalation (Spiriva Respimat) hydrocodone 5 mg-acetaminophen 325 1 tab PO BID PRN pa in 30 days #60 01/25/25 mg tablet tabs triamcinolone acetonide 0.5 % See Rx Instructions .Rou te 01/31/25 topical cream .COMPLEX #45 grams budesonide-formoterol HFA 160 1 puff inhalation BID #1 0.2 grams 02/10/25 mcg-4.5 mcg/actuation aerosol inhaler (Symbicort) codeine 10 mg-guaifenesin 100 mg/5 5 ml PO Q6H PRN col d symptoms #237 03/22/25 mL oral liquid mL albuterol sulfate 90 mcg/actuation 2 puff inhalation Q 4H PRN 03/24/25 aerosol inhaler (Ventolin HFA) shortness of breath or wheezing #8.5 grams budesonide-formoterol HFA 160 2 inh inhalation BID #10 .2 grams 03/24/25 mcg-4.5 mcg/actuation aerosol inhaler prednisone 20 mg tablet 10 mg (1/2 x 20 mg) PO DAILY 5 03/24/25 days #5 tabs Allergies Allergy/AdvReac Type Severity Reaction Status Date / Time No Known Allergies Allergy Verified 02/10/25 10:31 PFSH ED 2 PFSH: Medical History COPD (chronic obstructive pulmonary disease) History of back pain Smoker Surgical History History of back surgery Family History Mother CAD (coronary artery disease) Father , age 57 Heart attack Social History Smoking and tobacco/nicotine status: never used tobacco/nicotine Alcohol intake: never Substance/Drug Use: never Physical Exam 2 Narrative: EXAM NARRATIVE: Vital signs were reviewed. Patient is alert and oriented. Patient is mildly tachypneic. SpO2 is above 92% on RA. There is diffuse coarse expiratory wheezing. Abdomen is soft, nondistended and nontender. Patient is moving all extremities, no deformity or gross injury. No lower extremity edema or asymmetry. Course 2 Vital Signs: Vital signs: Vital Signs Temperature 97.5 F L 03/24/25 01:57 Pulse Rate 83 03/24/25 04:30 Respiratory Rate 20 H 03/24/25 04:23 Blood Pressure 128/60 03/24/25 04:30 Pulse Oximetry 97 03/24/25 04:30 Oxygen Delivery Me thod Room Air 03/24/25 04:30 [facility] - General Adult Medical Decision Making 79-year-old male with a history of COPD, current smoker, has ran out of his inhalers presents with a chief complaint of 1 day of shortness of breath. Differential diagnosis includes, resolved, viral upper respiratory infection, pneumonia, pneumothorax, COPD/asthma exacerbation, ACS, other. On exam, patient is normotensive, not tachycardic but is mildly tachypneic with diffuse expiratory wheezing. He was evaluate basic lab work including CBC, CMP, COVID and flu screen, EKG and chest x-ray. He was treated with DuoNeb, IV dexamethasone and Pulmicort inhalation. Patient has a normal white blood cell count and is not anemic. He does not have any actionable electrolyte abnormalities. Patient has normal kidney function. Patient has negative COVID/flu/RSV screen. Patient is feeling much better on reassessment. He has some expiratory wheezing, was given additional breathing treatments, magnesium and terbutaline. On reassessment, patient wishes to go home, stating that his symptoms have significantly improved despite continued wheezing. This may be somewhat chronic for patient. Inhalers were refilled. Patient was counseled on supportive care at home, given return precautions and discharged in stable condition with recommendation for outpatient follow-up with primary care nurse or doctor. Lab Data 03/24/25 02:20 03/24/25 02:20 Radiology Impressions Chest X-Ray 03/24/25 02:29 IMPRESSION: 1. Emphysema. 2. No focal consolidation, pleural effusion, or pneumothorax. Laboratory Results WBC 9.52 10^3/uL (3.29-11.43) 03/24/25 02:20 RBC 4.50 10^6/uL (3.85-5.65) 03/24/25 02:20 Hgb 13.50 g/dL (11.27-16.99) 03/24/25 02:20 Hct 43.2 % (37-53) 03/24/25 02:20 MCV 96.0 fl (82-101) 03/24/25 02:20 MCH 30.0 pg (27-33) 03/24/25 02:20 MCHC 31.3 g/dL (30-55) 03/24/25 02:20 RDW 13.6 % (12.1-15.1) 03/24/25 02:20 Plt Count 243 10^3/cmm (157-399) 03/24/25 02:20 MPV 9.9 fL (7.4-10.4) 03/24/25 02:20 Neut % (Auto) 53.0 % 03/24/25 02:20 Lymph % (Auto) 24.2 % 03/24/25 02:20 [place] % (Auto) 11.2 % 03/24/25 02:20 Eos % (Auto) 10.7 % 03/24/25 02:20 Baso % (Auto) 0.6 % 03/24/25 02:20 Neut # (Auto) 5.04 10^3/uL (1.8-7.7) 03/24/25 02:20 Lymph # (Auto) 2.3 10^3/uL (0.8-4.8) 03/24/25 02:20 [place] # (Auto) 1.1 10^3/uL (0.2-0.9) H 03/24/25 02:20 Eos # (Auto) 1.0 10^3/uL (0.0-0.8) H 03/24/25 02:20 Baso # (Auto) 0.1 10^3/uL (0.0-0.1) 03/24/25 02:20 Nucleated RBC % (auto) 0 % 03/24/25 02:20 Nucleated RBCs # 0.0 /100WBC 03/24/25 02:20 Sodium 145 mmol/L (136-145) 03/24/25 02:20 Potassium 4.2 mmol/L (3.5-5.1) 03/24/25 02:20 Chloride 106 mmol/L (98-107) 03/24/25 02:20 Carbon Dioxide 28 mmol/L (22-29) 03/24/25 02:20 Anion Gap 15.2 (5-19) 03/24/25 02:20 BUN 18 mg/dL (8-23) 03/24/25 02:20 Creatinine 0.7 mg/dL (0.7-1.2) 03/24/25 02:20 GFR Calculation Not Reportable 03/24/25 02:20 Glucose 129 mg/dL (65-115) H 03/24/25 02:20 Calculated Osmolality 304 mOsm/kg (285-295) H 03/24/25 02:20 Calcium 9.6 mg/dL (8.5-10.5) 03/24/25 02:20 Total Bilirubin 0.2 mg/dL (0.15-1.2) 03/24/25 02:20 AST 46 U/L (0-40) H 03/24/25 02:20 ALT 52 U/L (0-41) H 03/24/25 02:20 Alkaline Phosphatase 172 U/L (40-130) H 03/24/25 02:20 Total Protein 7.3 g/dL (6.6-8.7) 03/24/25 02:20 Albumin 4.5 g/dL (3.5-5.2) 03/24/25 02:20 Globulin 2.8 g/dL (1.3-4.6) 03/24/25 02:20 Influenza A (PCR) Negative (Negative) 03/24/25 02:22 Influenza Type B (PCR) Negative (Negative) 03/24/25 02:22 RSV (PCR) Negative (Negative) 03/24/25 02:22 SARS-CoV-2 (PCR) Negative (Negative) 03/24/25 02:22 All radiology interpretation(s) finalized by discharge ED provider radiology interpretation(s): Agree with radiology interpretation. EKG Data EKG 1: Interpretation: EKG shows sinus rhythm with a heart rate of 87, normal axis, normal intervals, no STEMI. Computer generated interpretation: Chest X-Ray 03/24/25 02:29 IMPRESSION: 1. Emphysema. 2. No focal consolidation, pleural effusion, or pneumothorax. Discharge Plan Discharge Patient Disposition: Home Clinical Impression: Acute exacerbation of chronic obstructive pulmonary disease Condition: Stable Prescriptions: New prednisone 20 mg tablet 10 mg PO DAILY 5 Days Qty: 5 0RF albuterol sulfate [Ventolin HFA] 90 mcg/actuation HFA aerosol inhaler 2 puff inhalation Q4H PRN (Reason: shortness of breath or wheezing) Qty: 8.5 5RF budesonide-formoterol 160-4.5 mcg/actuation HFA aerosol inhaler 2 inh inhalation BID Qty: 10.2 5RF No Action famotidine [Pepcid] 40 mg tablet 40 mg PO BID Qty: 10 0RF diclofenac sodium [Voltaren Arthritis Pain] 1 % gel 4 g topical QID Qty: 100 0RF albuterol sulfate 90 mcg/actuation HFA aerosol inhaler See Rx Instructions .ROUTE .COMPLEX Qty: 18 11RF Dose Instruction: INHALE 2 PUFFS BY MOUTH EVERY 4 HOURS DIRECTED NEEDED Rx Instructions: INHALE 2 PUFFS BY MOUTH EVERY 4 HOURS DIRECTED NEEDED prednisone 10 mg tablet 10 mg PO DAILY Qty: 30 3RF Spiriva Respimat 2.5 mcg/actuation mist 2 puff inhalation DAILY Qty: 4 3RF hydrocodone-acetaminophen 5-325 mg tablet 1 tab PO BID PRN (Reason: pain) 30 Days Qty: 60 0RF budesonide-formoterol [Symbicort] 160-4.5 mcg/actuation HFA aerosol inhaler 1 puff inhalation BID Qty: 10.2 2RF codeine-guaifenesin 10-100 mg/5 mL liquid 5 ml PO Q6H PRN (Reason: cold symptoms) Qty: 237 2RF pantoprazole 40 mg tablet,delayed release (DR/EC) See Rx Instructions .ROUTE .COMPLEX Qty: 90 3RF Dose Instruction: Take 1 tablet by mouth once daily Rx Instructions: Take 1 tablet by mouth once daily tramadol 50 mg tablet 50 mg PO Q6H PRN (Reason: pain) Qty: 120 5RF triamcinolone acetonide 0.5 % cream See Rx Instructions .ROUTE .COMPLEX Qty: 45 2RF Dose Instruction: apply topically TWICE DAILY Rx Instructions: apply topically TWICE DAILY acetaminophen 325 mg Tablet 650 mg PO QAM Discharge Orders: Discharge ED (Routine); Ordered 03/24/25 Ordered By: Maria Luz Rodriguez Referrals: Jean Bedolla MD [Primary Care Provider, Family Practice] Patient Instructions: COPD (Chronic Obstructive Pulmonary Disease) (ED), Opioid Safety, Pain Management, Patient Portal & [place] Instructions Activity Restrictions/Additional Instructions: Use your budesonide/fomoterol inhaler twice a day for maintenance of your disease. Use albuterol as needed for shortness of breath or wheezing every 4 hours. Please continue to monitor your condition closely at home. If your condition worsens or additional concerns arise, please return promptly to the emergency department for reassessment. Follow up with your primary care doctor in one week. Print Language: Luxembourgish Coding Level of Care Code ED Return Agent [place] for [place] [facility]
[2025-03-24 03:46] LABS: Respiratory Syncytial Virus Ce NEGATIVE (Negative); SARS-CoV-2 PCR NEGATIVE (Negative)
[2025-03-24] MEDS: magnesium sulfate premix 2 GM/50 ML PIGGYBACK IV (04:14)
== END 2025-03-24 05:38 | disposition home or self-care (01) ==
PROVIDERS: Emergency Provider Emergency Medicine; PCP Family Medicine
DX: J44.1 Chronic obstructive pulmonary disease with (acute) exacerbation (principal); Z11.52 Encounter for screening for COVID-19; Z72.0 Tobacco use
CPT/HCPCS: 71046; 80053; 85025; 87637; 93005; 94640; 96372; 96374; 96375; 99285; J1100; J3105; J3475; J7613; J7626; J9999

== ENCOUNTER → 2025-04-25 16:07 | Outpatient (BNVA) | payer MEDICARE, SELFPAY | PROVIDERS: PCP Family Medicine; Visit Provider Internal Medicine | DX: J44.89 Other specified chronic obstructive pulmonary disease (principal); F17.210 Nicotine dependence, cigarettes, uncomplicated; T78.40XA Allergy, unspecified, initial encounter; X58.XXXA Exposure to other specified factors, initial encounter | CPT/HCPCS: 36415; 86003; 99214; Q3014 ==